=== PATIENT | male | born 1960 | race Caucasian/White ===

== ENCOUNTER 2025-06-05 08:02 | Outpatient (RCR) | payer MEDICAID, SELFPAY | END 2025-06-14 23:59 | disposition home or self-care (01) | LOC: SCTC 08:02 | PROVIDERS: PCP Physician Assistant; Referring Provider Physician Assistant; Visit Provider Nurse Practitioner Family | DX: D75.839 Thrombocytosis, unspecified (principal); D72.829 Elevated white blood cell count, unspecified; F31.9 Bipolar disorder, unspecified; F41.9 Anxiety disorder, unspecified; E11.621 Type 2 diabetes mellitus with foot ulcer; L97.529 Non-pressure chronic ulcer of other part of left foot with unspecified severity; Z79.4 Long term (current) use of insulin; Z79.84 Long term (current) use of oral hypoglycemic drugs; F17.210 Nicotine dependence, cigarettes, uncomplicated; Z71.51 Drug abuse counseling and surveillance of drug abuser; Z71.41 Alcohol abuse counseling and surveillance of alcoholic | CPT/HCPCS: 99213; G0463 ==

== ENCOUNTER 2025-07-09 20:16 | Inpatient (IN) | payer MEDICAID, SELFPAY ==
[2025-07-09 20:17] VITALS: BMI 29.0
[2025-07-09 20:44] VITALS: BP 143/80; PULSE 127; RESP 26; TEMP 39.7; O2SAT 82
--- NOTE | 2025-07-09 20:48 | EDNOTE_ITS ---
ED Skin Abcess FB-RME/HPI General Chief complaint: Skin/Abscess/Foreign Body Stated complaint: WOUND TO LEFT FOOT Time Seen by Provider: 07/09/25 21:04 Arrival date/time: 07/09/25 20:16 RME / HPI RME / HPI narrative: Dr. Carter?[facility] Main ED Evaluation: 64yo male with known IDDM, history of amputation of 2 digits of both feet, hospitalized in March for plantar ulcer, treated in [place] and had been on extended abx following hospitalization lasting up to 1 month on doxycycline and keflex now presenting with increasing redness, localized pain to the left foot upon dressing this morning. Reported fever and associated rigors. No vomiting or diarrhea. PMH DM, HTN, and depression. PSH noncontributory. Social history includes long-term smoker, no alcoholism or illicit drug abuse. Related Data Home Medications ?Medication ?Instructions ?Recorded ?Confirmed gabapentin 300 mg capsule 600 mg PO QAM ##0 12/18/12 0 11/28/22 (Neurontin) hydrochlorothiazide 25 mg tablet 25 mg PO QAM ##0 01/2511/28/22 levothyroxine 75 mcg tablet 75 mcg PO QDAY ##0 3 11/28/22 duloxetine 60 mg capsule,delayed 60 mg PO QAM #0 caps 01/31/14 11/28/22 release (Cymbalta) gemfibrozil 600 mg tablet (Lopid) 600 mg PO BID #0 tab s 01/31/14 11/28/22 cyclobenzaprine 10 mg tablet 10 mg PO HS #0 tabs 04/2911/28/22 glyburide 5 mg-metformin 500 mg 1 tab PO BID #0 tabs 0 04/29/16 11/28/22 tablet carvedilol 3.125 mg tablet (Coreg) 3.125 mg PO BID ##6 0 01/12/17 11/28/22 docusate sodium 50 mg capsule 50 mg PO QDAY ##30 01/1211/28/22 (Stool Softener) lamotrigine 100 mg tablet 100 mg PO QDAY ##30 01/12/17 11/28/22 (Lamictal) sitagliptin phosphate 100 mg 100 mg PO QDAY ##30 01/1211/28/22 tablet (Januvia) cilostazol 50 mg tablet 50 mg PO BID #0 tabs 7 11/28/22 insulin detemir U-100 100 unit/mL 30 unit subcut HS #0 vials 06/05/17 11/28/22 subcutaneous solution (Levemir U-100 Insulin) acetaminophen 300 mg-codeine 60 mg 1 tab PO PRN PRN Pa in 06/27/20 11/28/22 tablet amitriptyline 50 mg tablet 50 mg PO HS 06/27/20 diazepam 5 mg tablet 5 mg PO BID 06/27/20 3 duloxetine 30 mg capsule,delayed 30 mg PO HS 06/27/20 11/28/22 release gabapentin 300 mg capsule 300 mg PO HS 06/27/20 hydroxyzine HCl 25 mg tablet 25 mg PO PRN PRN Itching 06/27/20 11/28/22 omeprazole 20 mg tablet,delayed 20 mg PO QDAY 06/27/20 11/28/22 release Allergies Allergy/AdvReac Type Severity Reaction Status Date / Time No Known Allergies Allergy Verified 02/09/24 08:32 Review of Systems Review of Systems Systems Reviewed: All systems reviewed, normal except as documented Past Medical History Past Medical History NEUROLOGIC: Positive Neurological Disorders and Seizures CARDIAC: Positive Hypercholesterolemia and Hypertension; Negative Cardiac Disorders or Congestive Heart Failure RESPIRATORY: Negative Chronic Obstructive Pulmonary Disease (COPD) or Asthma GASTROINTESTINAL: Positive Gastrointestinal Disorders and Gastroesophageal Reflux Disease GENITOURINARY: Negative Renal Disease MUSCULOSKELETAL: Positive Degenerative Disk Disease ENT: Positive Cataracts ENDOCRINE: Positive Diabetes Mellitus Type 2, Hyperthyroidism and Hypothyroidism; Negative Diabetes Mellitus Type 1 HEMATOLOGIC: Negative Sickle Cell Disease PSYCHO/SOCIAL: Positive Bipolar Disorder, Behavior Problems and Post Traumatic Stress Disorder OTHER HISTORY: Positive Hospitalization and Falls; Negative Blood Transfusions, Blood Transfusion Reaction or Anesthesia Reactions Surgical History SURGICAL: Positive Angiogram and Tonsillectomy Social History SMOKING STATUS: Never smoker SUBSTANCE USE: marijuana ED Exam Narrative Physical exam: GENERAL APPEARANCE: alert and oriented x 4, febrile, tachycardic, tachypneic, in [id number] distress complaining of left foot pain VITALS: All vitals were reviewed and the pulse ox is 82% on room air, which is hypoxic according to my interpretation. HEENT: Normocephalic, atraumatic; pupils equal, round, reactive to light; EOMI; mucous membranes pink, moist; oropharynx clear NECK: Supple LUNGS: CTABL; no wheezes, no rales, no rhonchi HEART: Mildly tachycardic, regular rhythm; normal S1, S2; no murmurs ABDOMEN: non distended; normal BS; soft, no tenderness, no guarding, no rebound; no masses, no organomegaly, no hernia BACK: no CVA tenderness EXTREMITIES: diffuse erythema over the dorsum of the left foot with lymphangitis of the distal medial leg; linear plantar ulcer at the level of the 2nd and 3rd distal metatarsal heads with moderate tenderness and slight induration, but no obvious drainage; dorsalis pedis pulses are slightly diminished compared to the contralateral side NEUROLOGIC: awake; alert and oriented x4; cranial nerves II-XII grossly intact; no focal sensory or motor deficits PSYCHIATRIC: appropriate mood and affect SKIN: warm, dry Course Course Course Narrative: 2042: Sepsis alert initiated. Orders made at this time are congruent with ED Adult Sepsis Order List. Re-evaluation is to be completed. CXR is ordered for determining the etiology of fever. 2118: NS IVF started. 2326: Sepsis reassessment performed consisting of lab review, vitals, physical exam including auscultation of heart, lungs, and visual evaluation of capillary refills, mucosal membranes and extremities. Patient met SIRS criteria however lactic, WBC, and pro emelia are all above normal range. Reassessment complete, patient is septic. Quality Measures Current suspected stage: sepsis Possible source: pulmonary, skin/soft tissue and wound Blood cultures ordered: yes Antibiotic ordered: Yes Pertinent labs: 07/09/25 07/10/25 21:10 00:53 Lactic Acid 3.0 H mMol/L 1.2 mMol/L (0.4-2.0) (0.4-2.0) Procalcitonin 1.96 H ng/ml (0.0-0.49) sepsis Orders Category Date Time Status Admit to Inpatient Status Routine Admission 07/10/25 01:28 Active Patient Condition Routine Admission 07/10/25 01:28 Ordered Bedrest QS Care 07/10/25 01:46 Active Bedside Blood Glucose NOW Care 07/09/25 21:02 Active Bedside Blood Glucose Q6HR Care 07/10/25 01:36 Active Rail Bonder STAT Care 07/09/25 21:05 Active Continuous Pulse Oximetry STAT Care 07/09/25 21:05 Completed EKG (ED ONLY) *Do not use* NOW Care 07/09/25 21:05 Completed Hardwick [Urinary Catheter] QS Care 07/09/25 21:02 Active IV [Insert IV] STAT Care 07/09/25 21:02 Active In and Out Catheter X1PRN Care 07/09/25 21:05 Completed Insert IV NOW Care 07/09/25 21:05 Completed MRI Screening NOW Care 07/10/25 01:39 Active Miscellaneous Nursing Order NOW Care 07/10/25 01:36 Active Miscellaneous Nursing Order NOW Care 07/10/25 01:36 Active NPO STAT Care 07/09/25 21:05 Active Notify provider NEEDED Care 07/10/25 01:28 Active Strict Intake and Output Routine Care 07/09/25 21:05 Ordered Consult to General Surgery Stat Cons 07/10/25 01:43 Ordered Referral Wound Care Routine Cons 07/10/25 01:40 Active EKG (ED Only) Stat Exams 07/09/25 21:05 Draft MR foot LT wo con Stat Exams 07/10/25 Completed US arterial duplex LE LT Stat Exams 07/09/25 21:10 Completed US venous doppler LE LT Stat Exams 07/10/25 01:41 Completed US venous doppler UE LT Stat Exams 07/09/25 21:10 Completed XR chest 1V SEPSIS PROTOCOL Stat Exams 07/09/25 21:08 Completed XR foot comp LT min 3V Stat Exams 07/09/25 21:10 Completed Arterial Blood Gas Stat Lab 07/09/25 22:40 Completed B-Type Natriuretic Peptide Stat Lab 07/09/25 21:10 Completed Blood Culture (Lab) Stat Lab 07/09/25 21:15 Results C-Reactive Protein Routine Lab 07/10/25 08:06 Completed CBC AM DRAW Lab 07/10/25 08:06 Completed CBC AM DRAW Lab 07/11/25 05:00 Ordered CBC AM DRAW Lab 07/12/25 05:00 Ordered CBC Stat Lab 07/09/25 21:10 Completed Comprehensive Metabolic Panel AM DRAW Lab 07/10/25 08:06 Completed Comprehensive Metabolic Panel AM DRAW Lab 07/11/25 05:00 Ordered Comprehensive Metabolic Panel AM DRAW Lab 07/12/25 05:00 Ordered Comprehensive Metabolic Panel Stat Lab 07/09/25 21:10 Completed Hemoglobin A1C [Glycohemoglobin w (eAG)] AM DRAW Lab 07/10/25 08:06 Completed LDH (Lactate Dehydrogenase) Stat Lab 07/09/25 21:10 Completed Lactate (Lactic Acid) Stat Lab 07/09/25 21:10 Completed Lactic Acid, 3 HR Stat Lab 07/10/25 00:53 Completed Lipase Stat Lab 07/09/25 21:10 Completed Magnesium AM DRAW Lab 07/10/25 08:06 Completed Magnesium AM DRAW Lab 07/11/25 05:00 Ordered Magnesium AM DRAW Lab 07/12/25 05:00 Ordered Magnesium Stat Lab 07/09/25 21:10 Completed Partial Thromboplastin Time Stat Lab 07/09/25 21:10 Completed Phosphorous AM DRAW Lab 07/11/25 05:00 Ordered Phosphorous AM DRAW Lab 07/12/25 05:00 Ordered Phosphorous AM DRAW Lab 07/13/25 05:00 Ordered Phosphorous Stat Lab 07/09/25 21:10 Completed Procalcitonin Stat Lab 07/09/25 21:10 Completed Prothrombin Time with INR Stat Lab 07/09/25 21:10 Completed Sed Rate (ESR) Routine Lab 07/10/25 08:06 Completed Troponin I Stat Lab 07/09/25 21:10 Completed Urinalysis, C/S if Indicated Stat Lab 07/09/25 21:10 Completed Urinalysis, C/S if Indicated Stat Lab 07/09/25 22:33 Ordered Acetaminophen Supp [Tylenol Supp] Med 07/09/25 21:05 Active 975 mg MO Q8HR PRN Acetaminophen Tab [Tylenol Tab] Med 07/10/25 01:31 Active 650 mg PO Q6H PRN Dextrose 50% Syr [D50w Syringe Abboject] Med 07/10/25 01:36 Active 25 ml IV Q15MIN PRN Dextrose 50% Syr [D50w Syringe Abboject] Med 07/10/25 01:36 Active 50 ml IV Q15MIN PRN Glucagon Inj Med 07/10/25 01:36 Active 1 mg IM Q15MIN PRN Heparin Inj Med 07/10/25 09:00 Active 5,000 unit SC Q12HR INSULIN LISPRO (AdmeLOG) [HumaLOG] Med 07/10/25 01:45 Active See Protocol SC Q6HR Morphine Inj Med 07/09/25 21:21 Discontinued 4 mg IVP X1 ONE Ondansetron Inj [Zofran Inj] Med 07/09/25 21:21 Discontinued 4 mg IVP X1 ONE Pantoprazole Inj [Protonix Inj] Med 07/10/25 09:00 Active 40 mg IVP QDAY Piper/Tazo 3.375 gm Premix [Zosyn] Med 07/09/25 21:05 Discontinued 3.375 gm in 50 ml IV X1 Piper/Tazo Inj [Zosyn Inj] 4.5 gm Med 07/10/25 06:00 Discontinued Sodium Chloride 0.9% (Pop) [NS 0.9% mini bag] 100 ml IV X1 Sodium Chloride 0.9% 1000 ml [Ns] 1,000 ml Med 07/10/25 01:45 Discontinued IV 75 mls/hr Sodium Chloride 0.9% 1000 ml [Ns] 1,983 ml Med 07/09/25 21:05 Discontinued IV 1,983 mls/hr Sodium Chloride 0.9% 500 ml [Ns] 500 ml Med 07/10/25 01:02 Discontinued IV 999 mls/hr Code Status Routine Oth 07/10/25 01:28 Ordered Oxygen Delivery NOW RT 07/09/25 21:05 Active Vital Signs Vital signs: Vital Signs Temperature 103.5 F H 07/09/25 20:44 Pulse Rate 127 H 07/09/25 20:44 Respiratory Rate 26 H 07/09/25 20:44 Blood Pressure 143/80 H 07/09/25 20:44 Pulse Oximetry (%) 82 L 07/09/25 20:44 Oxygen Delivery Method Room Air 07/09/25 20:44 Skin / Abscess / Foreign Body MDM Narrative MDM Narrative:: Scribe Attestation: 07/09/25 Elva Bhatia am scribing for and in the presence of Dr. Carter. 64yo male with known IDDM, history of amputation of 2 digits of both feet, hospitalized in March for plantar ulcer, treated in [place] and had been on extended abx following hospitalization lasting up to 1 month on doxycycline and keflex now presenting with increasing redness, localized pain to the left foot upon dressing this morning. Reported fever and associated rigors. Please see PE findings. Lab markers demonstrate elevated WBC count 14.1, mild anemia with Hgb 13, evidence of thrombocytosis that is likely acute phase reactive. Chemistries demonstrate acute renal insufficiency with Creatinine 1.8 and eGFR 42. Glucose 256 without ketosis. Mg 1.2 and Procalcitonin 1.96. Right foot x-ray suggests osteomyelitis at the 3rd distal metatarsal head. CXR demonstrates bilateral pneumonia. Patient enrolled in sepsis protocol and after cultures were obtained, antibiotics were administered. Patient's hypoxia corrected with 6L via face mask and overtime patient's sensorium improved. Hospitalist consulted and will admit the patient. Dx: acute sepsis, bilateral pnaumonia, osteomyelitis, acute renal insufficiency Patient data External records reviewed:: [facility] previous records (Per chart review, patient was seen here on 02/09/24 for hematoma of the right lower leg.) Clinical information provided by:: patient Social determinants that could affect healthcare access:: none Patient has the following chronic illnesses:: DM, HTN, HLD, seizures How is presenting disease/condition affected by chronic disease/condition?: exacerbated by Evaluation data The following diagnostics were reviewed and interpreted by me:: lab results, radiology exam(s) and EKG tracing(s) Lab and/or radiology exams considered but not ordered:: none Interpretation Summary: EKG done at 2227, sinus tachycardia, rate of 106, no acute pathological ST segment changes, no ectopy, RBBB, left axis deviation, according to my interpretation. ------ [facility] Report Signed Patient: PROMISE MIKE. Record#: [id number] Birthdate: 1960 Age/Sex: 64 / M Location: [facility] Attending Dr: Ordering Physician: Hardy Desai DO Date of Service: 07/09/25 Procedure(s): XR chest 1V SEPSIS PROTOCOL Accession Number(s): [id number] cc: Hardy Desai DO; Tank Kenyon MD; NO PRIMARY/FAMILY,PHYSICIAN~ Examination: AP chest single view TECHNIQUE: AP portable semiupright chest single view Date and time: July 09, 2025, 9:42 PM INDICATIONS: Sepsis protocol. FINDINGS: Significant diffuse bilateral pneumonia. Normal heart size. Moderate osteopenia. IMPRESSION:: Significant diffuse bilateral pneumonia Dictated By: Tank Kenyon MD Signed By: <Electronically signed by Tank Kenyon MD in OV> 07/09/252199 [facility] Report Signed Patient: PROMISE MIKE [facility]. Record#: [id number] Birthdate: 1960 Age/Sex: 64 / M Location: [facility] Attending Dr: Ordering Physician: Hardy Desai DO Date of Service: 07/09/25 Procedure(s): US arterial duplex LE LT Accession Number(s): [id number] cc: Hardy Desai DO; Tank Kenyon MD; NO PRIMARY/FAMILY,PHYSICIAN~ Examination: Arterial duplex lower extremity unilateral left Date and time of exam: July 09, 2025, 2124 hours INDICATIONS: Nonhealing left foot wound beginning several months ago Findings: Duplex sonographic imaging of the lower extremity arteries using B-mode/Galvin scale imaging and Doppler spectral analysis and color flow. Left common femoral artery demonstrates monophasic flow. Left superficial femoral artery demonstrates monophasic flow. Left popliteal artery demonstrates mild flow. Left posterior tibial artery demonstrated monophasic flow. Impression: Severe peripheral obstructive arterial disease left lower extremity Dictated By: Tank Kenyon MD Signed By: <Electronically signed by Tank Kenyon MD in OV> 07/09/252308 [facility] Report Signed Patient: PROMISE MIKE [facility]. Record#: [id number] Birthdate: 1960 Age/Sex: 64 / M Location: [facility] Attending Dr: Ordering Physician: Hardy Desai DO Date of Service: 07/09/25 Procedure(s): XR foot comp LT min 3V Accession Number(s): [id number] cc: Hardy Desai DO; Tank Kenyon MD; NO PRIMARY/FAMILY,PHYSICIAN~ Examination: Foot, left, 3 views Technique: AP, oblique, lateral views foot, 3 views Date and time of exam: July 09, 2025, 2136 hours INDICATIONS: Nonhealing wound left foot noticed beginning 3 days ago. FINDINGS: Cortical bone erosions in the amputated and third metatarsal No fracture No foreign body IMPRESSION: Osteomyelitis distal third metatarsal, consider MRI foot without contrast follow-up Dictated By: Tank Kenyon MD Signed By: <Electronically signed by Tank Kenyon MD in OV> 07/09/25 6043 [facility] Report Signed Patient: PROMISE MIKE. Record#: [id number] Birthdate: 1960 Age/Sex: 64 / M Location: [facility] Attending Dr: Ordering Physician: Hardy Desai DO Date of Service: 07/09/25 Procedure(s): US venous doppler UE LT Accession Number(s): [id number] cc: Hardy Desai DO; Tank Kenyon MD; NO PRIMARY/FAMILY,PHYSICIAN~ Examination: Duplex scan of the upper extremity, unilateral left Date and time of exam: July 09, 20251939 7:00 PM INDICATIONS: Left arm swelling and pain months Technique: Duplex scan of the extremity veins using B-mode/grayscale imaging and Doppler spectral analysis and color flow Attention is directed to internal echogenicity, compression and augmentation involving these veins, color flow assessment, spectral analysis Findings: Major deep venous structures in the extremity demonstrate normal course and caliber. There is no evidence of deep vein thrombosis. Normal color flow and spectral analysis Impression: Negative for DVT.. Dictated By: Tank Kenyon MD Signed By: <Electronically signed by Tank Kenyon MD in OV> 07/09/25 9869 Medications / Prescriptions Medications or Prescriptions considered but not ordered:: none Medication administrations:: Medication Administration History Acetaminophen (Acetaminophen Supp 650 Mg Supp) 975 mg MO Q8HR PRN; Protocol PRN Reason: Fever > 100.4 Stop: 08/08/25 21:04 Last Admin: 07/09/25 21:27 Dose: 975 mg Documented By: ASHISH Acetaminophen (Acetaminophen 325 Mg Tablet) 650 mg PO Q6H PRN; Protocol PRN Reason: Fever >100.4 or pain 1-3 Stop: 08/09/25 01:30 Amitriptyline HCl (Amitriptyline Hcl 25 Mg Tablet) 50 mg PO HS RAFAEL Stop: 08/09/25 20:59 Dextrose (Dextrose 50%-Water Inj 50 Ml Syringe) 25 ml IV Q15MIN PRN PRN Reason: BG 50-70 responsive npo pt Stop: 08/09/25 01:35 Dextrose (Dextrose 50%-Water Inj 50 Ml Syringe) 50 ml IV Q15MIN PRN PRN Reason: BG <50 OR BG <70 & pt unresponsive Stop: 08/09/25 01:35 Diazepam (Diazepam 5 Mg Tablet) 5 mg PO BID RAFAEL Stop: 07/15/25 13:29 Last Admin: 07/10/25 14:05 Dose: 5 mg Documented By: PARTH Duloxetine HCl (Duloxetine Hcl 30 Mg Capsule) 90 mg PO HS [facility] Stop: 08/09/25 20:59 Gabapentin (Gabapentin 300 Mg Capsule) 300 mg PO BID RAFAEL Stop: 08/09/25 20:59 Glucagon (Glucagon Inj 1 Mg Vial) 1 mg IM Q15MIN PRN PRN Reason: BG <70, and no IV access Heparin Sodium (Porcine) (Heparin Sod Inj 5000 Unit/Ml Vial) 5,000 unit SC Q12HR [facility] Stop: 07/24/25 08:59 Last Admin: 07/10/25 09:14 Dose: 5,000 unit Documented By: PARTH Co-signed By: XIONIgor Piperacillin Sod/Tazobactam (Sod 4.5 gm/ Sodium Chloride) 100 mls @ 25 mls/hr IV Q8HR [facility]; Protocol Stop: 07/17/25 13:59 Last Admin: 07/10/25 14:07 Dose: 25 mls/hr Documented By: PARTH Vancomycin HCl (Vancomycin/Water 1250 Mg Ivpb) 250 mls @ 120 mls/hr IV QDAY@1000 [facility] Stop: 07/17/25 09:59 Last Admin: 07/10/25 09:07 Dose: 120 mls/hr Documented By: PARTH Insulin Degludec (Insulin Degludec 5 Unit/0.05 Ml (Per 5 Units)) 15 unit SC [facility] Stop: 08/09/25 20:59 Insulin Human Lispro (Insulin Lispro (Admelog) 1 Unit/0.01 Ml Unit) 0 unit SC Q6HR [facility]; Protocol Stop: 08/09/25 01:44 Last Admin: 07/10/25 18:00 Dose: Not Given Documented By: PARTH Non-Admin Reason: Contraindicated Admin: 07/10/25 12:25 Dose: 4 unit Documented By: PARTH Co-signed By: CARMINE Admin: 07/10/25 05:54 Dose: 3 unit Documented By: RAVINDER Co-signed By: GEM Admin: 07/10/25 02:34 Dose: Not Given Documented By: CCT Non-Admin Reason: Patient Refused Lamotrigine (Lamotrigine 100 Mg Tablet) 100 mg PO QDAY [facility] Stop: 08/09/25 10:59 Last Admin: 07/10/25 14:19 Dose: 100 mg Documented By: PARTH Midazolam HCl (Midazolam Inj 1 Mg/Ml Vial 2 Ml) 2 mg IVP X1 PRN PRN Reason: Severe Agitation Pantoprazole Sodium (Pantoprazole Inj 40 Mg Vial) 40 mg IVP QDAY [facility] Stop: 08/09/25 08:59 Last Admin: 07/10/25 09:13 Dose: 40 mg Documented By: PARTH Pharmacy Consult (Vancomycin Pharmacy To Dose 1 Each Each) 1 each IV QDAY PRN PRN Reason: CONSULT Stop: 08/09/25 08:59 Discontinued Medications Haloperidol Lactate (Haloperidol Lact Inj 5 Mg/Ml Vial) 2.5 mg IV X1 ONE Stop: 07/10/25 15:12 Last Admin: 07/10/25 15:15 Dose: 2.5 mg Documented By: Comments: [employer] Haloperidol Lactate (Haloperidol Lact Inj 5 Mg/Ml Vial) 2.5 mg IV X1 ONE Stop: 07/10/25 15:28 Last Admin: 07/10/25 15:40 Dose: 2.5 mg Documented By: PARTH Sodium Chloride (Ns) 1,983 mls @ 1,983 mls/hr 30 ml/kg infuse over 60 min (1983 ml) IV .Q1H ONE Stop: 07/09/25 22:04 Last Infusion: 07/09/25 22:57 Dose: Infused Documented By: Admin: 07/09/25 21:19 Dose: 1,983 mls/hr Documented By: ASHISH Piperacillin/Tazobactam/Dextrose (Zosyn) 3.375 gm in 50 mls @ 100 mls/hr IV X1 ONE Stop: 07/09/25 21:34 Last Infusion: 07/09/25 22:05 Dose: Infused Documented By: Admin: 07/09/25 21:20 Dose: 100 mls/hr Documented By: CB Sodium Chloride (Ns) 500 mls @ 999 mls/hr IV .Q31M ONE Stop: 07/10/25 01:32 Last Infusion: 07/10/25 01:50 Dose: Infused Documented By: Admin: 07/10/25 01:15 Dose: 999 mls/hr Documented By: CCT Sodium Chloride (Ns) 1,000 mls @ 75 mls/hr IV .[id number] RAFAEL Stop: 08/09/25 01:44 Last Admin: 07/10/25 02:36 Dose: 75 mls/hr Documented By: CCT Piperacillin Sod/Tazobactam (Sod 4.5 gm/ Sodium Chloride) 100 mls @ 200 mls/hr IV X1 ONE Stop: 07/10/25 06:29 Last Infusion: 07/10/25 06:30 Dose: Infused Documented By: Admin: 07/10/25 05:56 Dose: 200 mls/hr Documented By: MLKaiden Magnesium Sulfate (Magnesium Sulfate Ivpb) 4 gm in 50 mls @ 12.5 mls/hr IV X1 ONE Stop: 07/10/25 08:33 Last Admin: 07/10/25 05:55 Dose: 12.5 mls/hr Documented By: MLKaiden Midazolam HCl (Midazolam Inj 1 Mg/Ml Vial 2 Ml) 2 mg IVP X1 ONE Stop: 07/10/25 15:10 Last Admin: 07/10/25 15:11 Dose: 2 mg Documented By: MR Midazolam HCl (Midazolam Inj 1 Mg/Ml Vial 2 Ml) Confirm Administered Dose 2 mg .ROUTE .STK-MED ONE Stop: 07/10/25 15:08 Last Admin: 07/10/25 15:16 Dose: Not Given Documented By: MR Non-Admin Reason: STK MED Morphine Sulfate (Morphine Sulf Inj 10 Mg/Ml Vial) 4 mg IVP X1 ONE Stop: 07/09/25 21:22 Last Admin: 07/09/25 21:27 Dose: 4 mg Documented By: ASHISH Non-Formulary Medication (Non-Formulary *See Comments* 1 Ea Ea) 10 ea IV X1 ONE Stop: 07/10/25 16:03 Last Admin: 07/10/25 16:28 Dose: Not Given Documented By: VL Non-Admin Reason: Discontinued Ondansetron HCl (Ondansetron Inj 2 Mg/Ml Inj 2 Ml) 4 mg IVP X1 ONE; Protocol Stop: 07/09/25 21:22 Last Admin: 07/09/25 21:27 Dose: 4 mg Documented By: CB Potassium Chloride (Potassium Chloride 20 Meq Tabcr) 40 meq PO X1 ONE Stop: 07/10/25 11:01 Last Admin: 07/10/25 12:22 Dose: 40 meq Documented By: VL Ziprasidone (Ziprasidone Inj 20 Mg/Ml Vial (Non-Formulary)) 10 mg IM X1 ONE; Protocol Stop: 07/10/25 16:16 Last Admin: 07/10/25 16:26 Dose: 10 mg Documented By: VL see above Consultations Consultation(s) initiated? (list below): Yes Consultation #1 (Physician, Specialty, Details): Discussed case with Dr. Chen, the resident physician, attending Dr. Godfrey from Hospitalist service regarding admission. Discussed patients ED course, exam findings, labs, and radiology results. The Hospitalist agrees to accept the patient for admission. Time: 00:51 Diagnosis Skin/Abscess Differential Diagnosis: other (sepsis, cellulitis, DVT, worsening PVD, osteomyelitis, pneumonia, UTI) Most likely diagnosis given after review of the tests above:: see clinical impression below Admission Indicated Admission indicated?: indicated Admission Request Was there a request for admission?: Yes Admission Attestation Admission request attestation: Discussed case with [] from Hospitalist service regarding admission. Discussed patients ED course, exam findings, labs, and radiology results. The Hospitalist [agrees,declines] to accept the patient for admission. Disposition Plan Disposition Plan: Admit Critical Care Time Critical Care Time Critical Care Time: Yes Total Critical Care Time (min.): 45 Attestation: The high probability of sudden, clinically significant deterioration in the patient?s condition required the highest level of my preparedness to intervene urgently. The services I provided to this patient were to treat and/or prevent clinically significant deterioration. Services included the following: chart data review, reviewing nursing notes and/or old charts, documentation time, knowledge management consultant collaboration regarding findings and treatment options, medication orders and management, direct patient care, vital sign assessments and ordering, interpreting and reviewing diagnostic studies and lab tests. Aggregate critical care time includes only time during which I was engaged in work directly related to the patient?s care, as described above, whether at bedside or elsewhere in the Emergency Department. It did not include time spent performing other reported procedures or the services of residents, students, nurses or physician assistants. Discharge Plan Plan Patient Disposition: Admit Acute Care w/in Hospital Problem List Clinical Impression: Acute sepsis, Bilateral pneumonia, Osteomyelitis, Acute renal insufficiency
--- NOTE | 2025-07-09 21:05 | EKG_ITS ---
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
[2025-07-09 21:07] VITALS: BP 136/72; PULSE 124; RESP 31; O2SAT 95
--- NOTE | 2025-07-09 21:08 | XR_ITS ---
Examination: AP chest single view TECHNIQUE: AP portable semiupright chest single view Date and time: July 09, 2025, 9:42 PM INDICATIONS: Sepsis protocol. FINDINGS: Significant diffuse bilateral pneumonia. Normal heart size. Moderate osteopenia. IMPRESSION:: Significant diffuse bilateral pneumonia
--- NOTE | 2025-07-09 21:10 | XR_ITS ---
Examination: Duplex scan of the upper extremity, unilateral left Date and time of exam: July 09, 20251939 7:00 PM INDICATIONS: Left arm swelling and pain months Technique: Duplex scan of the extremity veins using B-mode/grayscale imaging and Doppler spectral analysis and color flow Attention is directed to internal echogenicity, compression and augmentation involving these veins, color flow assessment, spectral analysis Findings: Major deep venous structures in the extremity demonstrate normal course and caliber. There is no evidence of deep vein thrombosis. Normal color flow and spectral analysis Impression: Negative for DVT..
--- NOTE | 2025-07-09 21:10 | XR_ITS ---
Examination: Arterial duplex lower extremity unilateral left Date and time of exam: July 09, 2025, 2124 hours INDICATIONS: Nonhealing left foot wound beginning several months ago Findings: Duplex sonographic imaging of the lower extremity arteries using B-mode/Galvin scale imaging and Doppler spectral analysis and color flow. Left common femoral artery demonstrates monophasic flow. Left superficial femoral artery demonstrates monophasic flow. Left popliteal artery demonstrates mild flow. Left posterior tibial artery demonstrated monophasic flow. Impression: Severe peripheral obstructive arterial disease left lower extremity
--- NOTE | 2025-07-09 21:10 | XR_ITS ---
Examination: Foot, left, 3 views Technique: AP, oblique, lateral views foot, 3 views Date and time of exam: July 09, 2025, 2135 hours INDICATIONS: Nonhealing wound left foot noticed beginning 3 days ago. FINDINGS: Cortical bone erosions in the amputated and third metatarsal No fracture No foreign body IMPRESSION: Osteomyelitis distal third metatarsal, consider MRI foot without contrast follow-up
[2025-07-09] MEDS: SODIUM CHLORIDE 0.9% 1000 ML 1,983 ML 1983 ML IV (21:19)
[2025-07-09] MEDS: PIPER/TAZO 3.375 GM PREMIX 3.375 GM/50 ML BAG IV (21:20)
[2025-07-09 21:27] VITALS: TEMP 39.7
[2025-07-09 21:27] LABS: Collection Type, Urine Clean Catch; Lactate (Lactic Acid) 3.0 mMol/L (0.4-2.0); Squamous Epithelial Cell,Urine 0 /hpf (0-5)
[2025-07-09] MEDS: ONDANSETRON INJ 2 MG/ML INJ 2 ML 4 MG IVP (21:27)
[2025-07-09] MEDS: ACETAMINOPHEN SUPP 650 MG SUPP 975 MG PR (21:27)
[2025-07-09] MEDS: MORPHINE SULF INJ 10 MG/ML VIAL 4 MG IVP (21:27)
[2025-07-09 21:28] LABS: Basophils # (Auto) 0.0 Thou/mm3 (0.0-0.2); Basophils % (Auto) 0 % (0-2.5); Eosinophils # (Auto) 0.0 Thou/mm3 (0.0-0.5); Eosinophils % (Auto) 0 % (0-10); Hematocrit 39.2 % (41.0-53.0); Hemoglobin 13.0 g/dL (13.5-16.0); Immature Granulocytes Auto 0.05 Thou/mm3 (0.00-0.00); Lymphocytes # (Auto) 1.4 Thou/mm3 (1.0-4.8); Lymphocytes % (Auto) 10 % (10-50); Mean Corpuscular HGB Conc 33.2 g/dl (31.0-37.0); Mean Corpuscular Hemoglobin 28.0 pg (25.0-35.0); Mean Corpuscular Volume 84 fL (80-100); Monocytes # (Auto) 0.5 Thou/mm3 (0.0-0.8); Monocytes % (Auto) 3 % (0-12); Neutrophils # (Auto) 12.2 Thou/mm3 (1.8-7.7); Neutrophils % (Auto) 86 % (37-80); Nucleated Red Blood Cell # 0.02 Thou/mm3 (0.00-0.00); Nucleated Red Blood Cell % 0 /100 WBC (0); Platelet Count 541 Thou/mm3 (140-440); RDW Standard Deviation 46.5 fL (35.1-43.9); Red Blood Count 4.65 Miln/mm3 (4.50-5.90); White Blood Count 14.1 Thou/mm3 (3.8-10.6)
[2025-07-09 21:30] LABS: Bilirubin,Urine Negative (Negative); Blood,Urine Negative (Negative); Clarity,Urine Clear (Clear/Hazy); Color,Urine Yellow (Lt Yel-Yel); Culture Indicated,Urine Not Indicated; Glucose, Urine 4+ (Negative); Hyaline Casts,Urine < 1 /hpf (0-1); Ketones,Urine Negative (Negative); Leukocyte Esterase,Urine Negative (Negative); Nitrite,Urine Negative (Negative); PH,Urine 6.0 (5.0-7.0); Protein,Urine 2+ (Neg - Trace); RBC,Urine 2 /hpf (0-3); Specific Gravity,Urine 1.022 (1.001-1.035); Urobilinogen,Urine Negative mg/dL (0.0-1.0); WBC,Urine 1 /hpf (0-5)
[2025-07-09 21:46] VITALS: PULSE 115
[2025-07-09 21:48] LABS: B-Type Natriuretic Peptide 94 pg/mL (0-100)
[2025-07-09 21:57] LABS: Alanine Aminotransferase 13 U/L (10-49); Albumin, Serum 4.6 gm/dL (3.4-4.8); Albumin/Globulin Ratio 1.5 (1.2-2.2); Alkaline Phosphatase 83 U/L (46-116); Anion Gap 15 (7-16); Aspartate Amino Transferase 23 U/L (0-34); BUN/Creatinine Ratio 18 Ratio (12-20); Bilirubin,Total 0.4 mg/dL (0.3-1.2); Blood Urea Nitrogen 33 mg/dL (9-23); Calcium 9.8 mg/dL (8.3-10.6); Calcium (Corrected) 9.8 mg/dL (8.5-10.1); Carbon Dioxide 24.5 mMol/L (20.0-31.0); Chloride 94 mMol/L (98-107); Creatinine (Component) 1.8 mg/dL (0.6-1.3); Estimated Creatinine Clearance 42.9 mL/min (>60); Globulin 3.1 gm/dL (2.3-3.5); Glucose 256 mg/dL (74-106); LDH (Lactate Dehydrogenase) 290 U/L (120-246); Lipase 36 U/L (12-53); Magnesium 1.2 mg/dL (1.6-2.6); Osmolality,Calculated 282 (275-295); Phosphorous 4.0 mg/dL (2.4-5.1); Potassium 3.6 mMol/L (3.4-5.1); Procalcitonin 1.96 ng/ml (0.0-0.49); Sodium 133 mMol/L (136-145); Total Protein 7.7 gm/dL (5.7-8.2); Troponin I < 0.020 ng/mL (0.0-0.045); eGFR 42 See Note
[2025-07-09 22:01] LABS: INR 1.2 (0.9-1.3); Partial Thromboplastin Time 26.8 Seconds (22.0-36.0); Prothrombin Time 12.6 Seconds (9.0-12.2)
[2025-07-09 22:52] LABS: Base Excess -1 (-3-3); HCO3 25 mEq/L (20-26); O2 Saturation 96 % (91-98); PCO2 46 mmHg (32.0-48.0); PO2 82 mmHg (83-108); pH, Arterial 7.35 (7.35-7.45)
[2025-07-09 22:53] LABS: Allen Test Performed/OK; Inspired O2, VO2 Liters 10 L/min; Puncture Site Right Radial
[2025-07-09 22:56] VITALS: TEMP 38.4
[2025-07-09 22:58] VITALS: BP 116/56; PULSE 105; RESP 27; TEMP 38.4; O2SAT 95
[2025-07-10] VITALS (11 sets, daily range): BP systolic 101–134; BP diastolic 62–75; PULSE 70–105; RESP 20–30; TEMP 36.2–38.4; O2SAT 92–95; BMI 31.0
--- NOTE | 2025-07-10 | XR_ITS ---
Examination: MRI left foot, without contrast Date and time of exam: July 10, 2025, 0929 hours INDICATIONS: History amputation 2 digits of the foot, history plantar ulcer, patient on extended antibiotic therapy for nonhealing wounds redness in the left foot Technique: Multiple axial sagittal and coronal images of the left foot have been obtained with the Siemens high-resolution 1.5 Cindi MRI scanner. Images obtained include T2-weighted fat-suppressed sagittal sections, TR 3500, TE 46, T2 weighted coronal fat suppressed images, TR 3050, TE 84, T2-weighted transverse fat suppressed images, TR 3260, TE 63, proton density transverse images, TR 4720 TE 46, and T1 weighted coronal images, TR 560, TE 13. Findings: Amputations distal third metatarsal, proximal phalanx fourth digit Soft tissue infection about the distal third metatarsal with cortical bone destruction involving the distal aspect of the third metatarsal No soft tissue abscess Remaining metatarsals intact and Mild plantar fasciitis Flexor tendons intact IMPRESSION: Soft tissue infection surrounding the distal third metatarsal Osteomyelitis distal third metatarsal
[2025-07-10 00:25] LABS: Reflex Lactate? Y
[2025-07-10 01:01] LABS: Lactic Acid, 3 HR 1.2 mMol/L (0.4-2.0)
--- NOTE | 2025-07-10 01:11 | ESHP_ITS ---
<Statement entered by Nadir Godfrey MD - 07/10/25 08:49> I have discussed and was present for the essential components of the history, physical examination, diagnosis, and treatment plan with the resident. I agree with the patient's care as documented by the resident and amended herein by me. Nadir Godfrey MD FACP. 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 Patient reports that his normally assists with wound care for a plantar ulcer. He noticed increased redness and pain 2 days ago, with some streaking up the leg. Denies foul odor or drainage. He endorsed fever and chills/rigors earlier today. Denies abdominal pain, nausea, vomiting, or diarrhea. Reports mild scratchy throat but minimal cough, no productive sputum, and no recent sick contacts. Reports some chronic shortness of breath but no acute chest pain, palpitations, or syncope. In the ED, he was febrile to 103.5?F, tachycardic to 127, tachypneic, and hypoxic to 82% on RA (improved with O2). Sepsis alert initiated; patient received ~2.4L IV NS (30cc/kg bolus), IV piperacillin-tazobactam, morphine, and Zofran. CXR showed diffuse bilateral pneumonia. Foot x-ray revealed osteomyelitis of the distal third metatarsal at the plantar ulcer site. Duplex scan showed severe peripheral arterial disease of LLE. MRI foot is pending. Blood cultures sent. Patient?s mental status improved after fluids and oxygen. During interview he was somewhat tangential but oriented ?4. ROS (limited by patient tangentiality) * General: +fever, +rigors, no night sweats, no weight loss. * Cardiac: No chest pain, +tachycardia in ED. * Respiratory: Mild scratchy throat, occasional cough, denies sputum, admits chronic mild SOB. * GI: Denies N/V/D, no abdominal pain. * : Denies dysuria, frequency, hematuria. * MSK/Skin: L foot pain, erythema, ulcer, streaking up leg. * Neuro: No acute weakness, speech intact. Hx seizures. * Psych: Mood tangential, but appropriate affect. PMH * DM2 (IDDM) * Peripheral arterial disease with prior toe amputations * Splenectomy (2022, for splenic infarct & thrombus) * Hypertension, hyperlipidemia * Hypothyroidism (on levothyroxine) * Psychiatric: Bipolar disorder, MDD, PTSD, explosive anger disorder * Seizure disorder * GERD * Cataracts * DDD PSH * Splenectomy 2022 * Toe amputations (bilateral) * Tonsillectomy * Angiogram Medications (per patient, pending full med rec) * Insulin (states 40 units daily, type unclear) * Aspirin * Unclear if still on Eliquis (was prescribed after splenectomy in 2022; patient says he?s taking his ?blood thinner? but unsure of the name) * Levothyroxine * Antihypertensives (unsure which) * Gabapentin, Cymbalta (per prior note) * Others pending reconciliation Allergies * NKDA reported Family History * Non-contributory per patient Social History * Lives with , who assists with wound care * Former cigarette smoker (now vaping, reduced use) * Marijuana use occasionally * Denies alcohol or illicit drug use * Disabled, not working Exam Vital Signs Temp Pulse Resp BP Pulse Ox O2 Del Method O2 Flow Rate 101.1 F H 105 H 27 H 116/56 L 95 Oxy Mask 10 07/09/25 22:58 07/09/25 22:58 07/09/25 22:58 07/09/25 22:58 07/09/25 22:58 07/09/25 22:58 07/09/25 22:58 Narrative Exam General: Ill-appearing, in mild-moderate distress from foot pain. Tangential but oriented ?4. HEENT: Normocephalic, atraumatic, PERRL, MMM, oropharynx clear. Neck: Supple, no JVD. Cardiac: Tachycardic, regular, no murmurs. Respiratory: Mild tachypnea, bibasilar crackles, no wheezes/rhonchi. Abdomen: Soft, non-tender, no rebound/guarding, +BS. Extremities: L foot: diffuse erythema dorsum with lymphangitic streaking up medial leg; plantar ulcer at 2nd?3rd distal metatarsal head, tender, indurated, serosanguineous drainage; DP pulse was not appreciated Neuro: Awake, alert, CN II?XII intact, motor/sensory grossly intact. Psych: Tangential speech, appropriate affect. Skin: Warm, dry, erythematous changes over L foot. Results: Labs 07/09/25 21:10 07/09/25 21:10 Labs: Short CBC 07/09/25 Range/Units 21:10 WBC 14.1 H (3.8-10.6) Thou/mm3 Hgb 13.0 L (13.5-16.0) g/dL Hct 39.2 L (41.0-53.0) % Plt Count 541 H (140-440) Thou/mm3 BMP 07/09/25 21:10 Sodium 133 L Potassium 3.6 Chloride 94 L Carbon Dioxide 24.5 BUN 33 H Creatinine 1.8 H Glucose 256 H Calcium 9.8 Cardiac Enzymes 07/09/25 Range/Units 21:10 Troponin I < 0.020 (0.0-0.045) ng/mL Liver Function 07/09/25 Range/Units 21:10 Total Bilirubin 0.4 (0.3-1.2) mg/dL AST 23 (0-34) U/L ALT 13 (10-49) U/L Alkaline Phosphatase 83 (46-116) U/L Albumin 4.6 (3.4-4.8) gm/dL Urine 07/09/25 Range/Units 21:10 Urine Color Yellow (Lt Yel-Yel) Urine Clarity Clear (Clear/Hazy) Urine pH 6.0 (5.0-7.0) Ur Specific [address] 1.022 (1.001-1.035) Urine Protein 2+ A (Neg - Trace) Urine Glucose (UA) 4+ A (Negative) ABG Interpretation ABG results: 07/09/25 22:40 ABG pH 7.35 ABG pCO2 46 ABG pO2 82 L ABG HCO3 25 ABG O2 Saturation 96 ABG Base Excess -1 Quality Measures Quality Measures sepsis Current suspected stage: sepsis Possible source: pulmonary, skin/soft tissue and wound Blood cultures ordered: yes Antibiotic ordered: Yes Medications Home Medications and Allergies Home Medications ?Medication ?Instructions ?Recorded ?Confirmed ?Type gabapentin 300 mg capsule 600 mg PO [facility] ##0 12/18/12 0 11/28/22 History (Neurontin) hydrochlorothiazide 25 mg tablet 25 mg PO QAM ##0 0201/2511/28/22 History levothyroxine 75 mcg tablet 75 mcg PO QDAY ##0 3 11/28/22 History duloxetine 60 mg capsule,delayed 60 mg PO QAM #0 caps 01/31/14 11/28/22 History release (Cymbalta) gemfibrozil 600 mg tablet (Lopid) 600 mg PO BID #0 tab s 01/31/14 11/28/22 History cyclobenzaprine 10 mg tablet 10 mg PO HS #0 tabs 04/2911/28/22 History glyburide 5 mg-metformin 500 mg 1 tab PO BID #0 tabs 0 04/29/16 11/28/22 History tablet carvedilol 3.125 mg tablet (Coreg) 3.125 mg PO BID ##6 0 01/12/17 11/28/22 History docusate sodium 50 mg capsule 50 mg PO QDAY ##30 01/1211/28/22 History (Stool Softener) lamotrigine 100 mg tablet 100 mg PO QDAY ##30 01/12/17 11/28/22 History (Lamictal) sitagliptin phosphate 100 mg 100 mg PO QDAY ##30 01/1211/28/22 History tablet (Januvia) cilostazol 50 mg tablet 50 mg PO BID #0 tabs 7 11/28/22 History insulin detemir U-100 100 unit/mL 30 unit subcut HS #0 vials 06/05/17 11/28/22 History subcutaneous solution (Levemir U-100 Insulin) acetaminophen 300 mg-codeine 60 mg 1 tab PO PRN PRN Pa in 06/27/20 11/28/22 History tablet amitriptyline 50 mg tablet 50 mg PO HS 06/27/20 History diazepam 5 mg tablet 5 mg PO BID 06/27/20 3 History duloxetine 30 mg capsule,delayed 30 mg PO HS 06/27/20 11/28/22 History release gabapentin 300 mg capsule 300 mg PO HS 08/13/20 01/14/ 23 History hydroxyzine HCl 25 mg tablet 25 mg PO PRN PRN Itching 06/27/20 11/28/22 History omeprazole 20 mg tablet,delayed 20 mg PO QDAY 06/27/20 11/28/22 History release Allergies Allergy/AdvReac Type Severity Reaction Status Date / Time No Known Allergies Allergy Verified 02/09/24 08:32 Visit Medications Acetaminophen (Acetaminophen Supp 650 Mg Supp) 975 mg MO Q8HR PRN PRN Reason: Fever > 100.4 Stop: 08/08/25 21:04 Last Admin: 07/09/25 21:27 Dose: 975 mg Sodium Chloride (Ns) 500 mls @ 999 mls/hr IV .Q31M ONE Stop: 07/10/25 01:32 Discontinued Medications Sodium Chloride (Ns) 1,983 mls @ 1,983 mls/hr 30 ml/kg infuse over 60 min (1983 ml) IV .Q1H ONE Stop: 07/09/25 22:04 Last Infusion: 07/09/25 22:57 Dose: Infused Piperacillin/Tazobactam/Dextrose (Zosyn) 3.375 gm in 50 mls @ 100 mls/hr IV X1 ONE Stop: 07/09/25 21:34 Last Infusion: 07/09/25 22:05 Dose: Infused Morphine Sulfate (Morphine Sulf Inj 10 Mg/Ml Vial) 4 mg IVP X1 ONE Stop: 07/09/25 21:22 Last Admin: 07/09/25 21:27 Dose: 4 mg Ondansetron HCl (Ondansetron Inj 2 Mg/Ml Inj 2 Ml) 4 mg IVP X1 ONE; Protocol Stop: 07/09/25 21:22 Last Admin: 07/09/25 21:27 Dose: 4 mg Assessment & Plan Plan 64M with PMH DM2 (IDDM), PAD with prior amputations, splenectomy (2022, on Eliquis/ASA), hypothyroidism, HTN, and psychiatric history, presenting with sepsis due to bilateral pneumonia and diabetic foot infection with osteomyelitis, complicated by acute hypoxemic respiratory failure and MARISOL. # Sepsis, unspecified organism Presented febrile, tachycardic, tachypneic, leukocytosis, lactate 3. Source likely multifocal (bilateral pneumonia + diabetic foot osteomyelitis). qSOFA = 2 (RR >22, hypoxia). Sepsis bundle completed (30 cc/kg bolus, abx, cultures drawn) Plan: * Continue IV piperacillin-tazobactam + add vancomycin (renally dose both) * Blood cultures pending; tailor abx to sensitivities * Trend lactate until normalized * Strict I&O, vitals q4h, tele * Continue NS at 75 cc/hr maintenance; reassess fluid status given PAD/renal disease # Acute hypoxemic respiratory failure, due to # Pneumonia, unspecified organism Hypoxia 82% RA, improved with O2 CXR with diffuse bilateral pneumonia. Plan: * Maintain O2 sat >92%, titrate O2 support as needed * Monitor for increasing O2 requirement * Nebs PRN if wheeze develops * Recheck CXR if worsening # Type 2 DM with foot ulcer # Osteomyelitis of the left foot Plantar ulcer with erythema, lymphangitic streaking, XR showing osteomyelitis, MRI pending. Plan: * Continue broad spectrum antibiotics * Consult general surgery for possible debridement * Wound care consult * NPO after midnight for possible procedures # Acute kidney injury Cr 1.8, baseline 0.9 Likely prerenal from sepsis. Plan: * Monitor BMP daily * Adjust meds for renal dosing * Avoid nephrotoxins * Strict I&O # Peripheral arterial disease, unspecified Severe PAD on duplex, diminished distal pulses. Plan: * Patient uncertain if still on Eliquis (was prescribed after splenectomy); confirm via med rec/pharmacy * Continue aspirin * Smoking cessation counseling * Outpatient vascular surgery consult # Type 2 Diabetes Mellitus with complications Poor control, BG 256, unclear insulin regimen. 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 Plan: * Confirm vaccination status (pneumococcal, meningococcal, Hib) * Monitor closely for encapsulated organism sepsis # Psychiatric history (Bipolar, MDD & PTSD) Stable, tangential speech but oriented. Plan: * Resume home psych meds once reconciled * Psych consult PRN Health Maintenance Disposition: Admit to tele Diet: NPO after midnight (diabetic diet once cleared) Thromboprophylaxis: SQ heparin GI prophylaxis: PPI Code Status: Patient confirmed DNR ----- Plan discussed with attending physician Dr. Epifanio Gama MD PGY-1 Internal Medicine
[2025-07-10] MEDS: SODIUM CHLORIDE 0.9% 500 ML 500 ML 999 ML IV (01:15)
--- NOTE | 2025-07-10 01:41 | XR_ITS ---
Examination: Duplex scan of the lower extremity, unilateral left Date and time of exam: July 10, 2025, 0829 hours INDICATIONS: Left foot nonhealing wound and redness beginning 3 months ago. Technique: Duplex scan of the extremity veins using B-mode/grayscale imaging and Doppler spectral analysis and color flow Attention is directed to internal echogenicity, compression and augmentation involving these veins, color flow assessment, spectral analysis Findings: Major deep venous structures in the extremity demonstrate normal course and caliber. There is no evidence of deep vein thrombosis. Normal color flow and spectral analysis Impression: Negative for DVT..
[2025-07-10] MEDS: SODIUM CHLORIDE 0.9% 1000 ML 1,000 ML 75 ML IV (02:36)
--- NOTE | 2025-07-10 04:17 | PC.NURSE ---
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
--- NOTE | 2025-07-10 04:31 | PC.NURSE ---
Dr. Gama made aware of magnesium 1.2, per MD will put in order for magnesium IV.
[2025-07-10] MEDS: INSULIN LISPRO (AdmeLOG) 1 UNIT/0.01 ML UNIT SC ×2 (05:54→12:25)
[2025-07-10] MEDS: Magnesium Sulfate 4 GM Ivpb 4 GM/50 ML BAG IV (05:55)
[2025-07-10] MEDS: PIPER/TAZO INJ 4.5 GM in SODIUM CHLORIDE 0.9% (POP) 100 ML IV ×3 (05:56→21:02)
--- NOTE | 2025-07-10 06:05 | PC.NURSE ---
pt unable to recall his home meds and stated to call his for list. pt alert and oriented x3,during conversation pt changes topic most of time and RN has to redirect him.
[2025-07-10 08:56] LABS: Basophils # (Auto) 0.1 Thou/mm3 (0.0-0.2); Basophils % (Auto) 0 % (0-2.5); Eosinophils # (Auto) 0.1 Thou/mm3 (0.0-0.5); Eosinophils % (Auto) 0 % (0-10); Hematocrit 30.5 % (41.0-53.0); Hemoglobin 10.1 g/dL (13.5-16.0); Immature Granulocytes Auto 0.13 Thou/mm3 (0.00-0.00); Lymphocytes # (Auto) 1.1 Thou/mm3 (1.0-4.8); Lymphocytes % (Auto) 5 % (10-50); Mean Corpuscular HGB Conc 33.1 g/dl (31.0-37.0); Mean Corpuscular Hemoglobin 28.5 pg (25.0-35.0); Mean Corpuscular Volume 86 fL (80-100); Monocytes # (Auto) 1.2 Thou/mm3 (0.0-0.8); Monocytes % (Auto) 5 % (0-12); Neutrophils # (Auto) 21.2 Thou/mm3 (1.8-7.7); Neutrophils % (Auto) 89 % (37-80); Nucleated Red Blood Cell # 0.02 Thou/mm3 (0.00-0.00); Nucleated Red Blood Cell % 0 /100 WBC (0); Platelet Count 442 Thou/mm3 (140-440); RDW Standard Deviation 48.2 fL (35.1-43.9); Red Blood Count 3.55 Miln/mm3 (4.50-5.90); White Blood Count 23.8 Thou/mm3 (3.8-10.6)
[2025-07-10 09:02] LABS: Alanine Aminotransferase 10 U/L (10-49); Albumin, Serum 3.6 gm/dL (3.4-4.8); Albumin/Globulin Ratio 1.3 (1.2-2.2); Alkaline Phosphatase 64 U/L (46-116); Anion Gap 10 (7-16); BUN/Creatinine Ratio 22 Ratio (12-20); Bilirubin,Total 0.3 mg/dL (0.3-1.2); Blood Urea Nitrogen 28 mg/dL (9-23); Calcium 7.9 mg/dL (8.3-10.6); Calcium (Corrected) 8.2 mg/dL (8.5-10.1); Carbon Dioxide 23.0 mMol/L (20.0-31.0); Chloride 100 mMol/L (98-107); Creatinine (Component) 1.3 mg/dL (0.6-1.3); Estimated Creatinine Clearance 61.4 mL/min (>60); Globulin 2.7 gm/dL (2.3-3.5); Glucose 312 mg/dL (74-106); Magnesium 1.8 mg/dL (1.6-2.6); Osmolality,Calculated 283 (275-295); Potassium 3.3 mMol/L (3.4-5.1); Sodium 133 mMol/L (136-145); Total Protein 6.3 gm/dL (5.7-8.2); eGFR > 60 See Note
[2025-07-10] MEDS: VANCOMYCIN/WATER 1250 MG IVPB 250 ML 120 MG IV (09:07)
[2025-07-10 09:10] LABS: Glucose Estimated Average 223 mg/dL (80-131); Hemoglobin A1C 9.4 % Hgb (4.8-6.0)
[2025-07-10] MEDS: HEPARIN SOD INJ 5000 UNIT/ML VIAL SC ×2 (09:14→21:03)
[2025-07-10 09:24] LABS: Aspartate Amino Transferase 14 U/L (0-34)
[2025-07-10 09:55] LABS: Sed Rate (ESR) 72 mm/hr (0-20)
--- NOTE | 2025-07-10 10:10 | ESPR_ITS ---
<Statement entered by Muna Mckenna MD - 07/11/25 14:39> Pt was in MRI when I rounded, But later nurse called that pt was agitated and was aggressive toward staff as well as having suicidal ideation. pt was seen at bedside then, pt was still very agitated, will order 1-1 for safety reason. Per surgery, currently pt is not a surgical candidate and no need for amputations. Will consult ID for further recommendations. Patient was seen and examined by me personally. I have directly supervised and reviewed documentation by the team resident and agree with its findings. ------- Plan of care was discussed with the attending, Dr. Marilu Mckenna, PGY-2 Documentation for date of: 07/10/25 Subjective Subjective Interval history: Today patient was seen and examined at bedside with present. The patient repeatedly expressed a strong preference for outpatient management with antibiotics, stating he does not wish to be hospitalized or to in the hospital. He was reassured that, given the suspected diagnosis of osteomyelitis, inpatient treatment with intravenous antibiotics is strongly recommended to ensure appropriate and effective care. He was also informed that we are currently awaiting the surgical team's evaluation and recommendations based on the recent MRI findings, and that further management will be guided accordingly. Saturating well on room air. AM labs reviewed. Significant for Lactate 1.2, wbc 23.8, Hgb 10.1, Hct 30.5, K 3.3 ( repleted KCl 40meq) Glucose 312- started degludec 15 unit HS. Patient already on insulin sliding scale. Resume homes meds: Lamotrigine 100mg, Duloxetine 90mg, diazepam 5mg. Diet was advanced form NPO to pureed in response to the patients increase agitation and irritability, which appear to be related to hunger. Exam Vital Signs Temp Pulse Resp BP Pulse Ox O2 Del Method O2 Flow Rate 97.6 F 78 23 H 122/69 95 Oxy Mask 3 07/10/25 08:00 07/10/25 08:00 07/10/25 08:00 07/10/25 08:00 07/10/25 08:00 07/10/25 08:00 07/10/25 08:00 Narrative Exam General: irritable, in mild-moderate distress .Tangential but oriented ?4. HEENT: Normocephalic, atraumatic, PERRL, MMM, oropharynx clear. Neck: Supple, no JVD. Cardiac: Tachycardic, regular, no murmurs. Respiratory: Mild tachypnea, bibasilar crackles, no wheezes/rhonchi. Abdomen: distended, non-tender, no rebound/guarding, +BS. Extremities: L foot plantar wound at 2nd, 3rd distal metatarsal head, nontender. 4th toe amputation. No sensation bilaterally. Absent sensation in LE to light touch and pinprick. Diminished distal pulses Neuro: Awake, alert, CN II?XII intact, motor/sensory grossly intact. Psych: Tangential speech, appropriate affect. Skin: Warm, dry, erythematous changes over L foot. Objective Labs 07/12/25 06:19 07/12/25 06:19 Labs: Laboratory Results - last 24 hr 07/09/25 07/09/25 07/10/25 21:10 22:40 00:53 WBC 14.1 H RBC 4.65 Hgb 13.0 L Hct 39.2 L MCV 84 MCH 28.0 MCHC 33.2 RDW Std Deviation 46.5 H Plt Count 541 H Neut % (Auto) 86 H Lymph % (Auto) 10 [place] % (Auto) 3 Eos % (Auto) 0 Baso % (Auto) 0 Neut # (Auto) 12.2 H Lymph # (Auto) 1.4 [place] # (Auto) 0.5 Eos # (Auto) 0.0 Baso # (Auto) 0.0 Immature Gran # (Auto) 0.05 H Absolute Nucleated RBC 0.02 H Immature Gran % 0 Nucleated RBC % 0 ESR PT 12.6 H INR 1.2 APTT 26.8 Puncture Site Right Radial ABG pH 7.35 ABG pCO2 46 ABG pO2 82 L ABG HCO3 25 ABG O2 Saturation 96 ABG Base Excess -1 Oxygen Liter Flow 10 Sodium 133 L Potassium 3.6 Chloride 94 L Carbon Dioxide 24.5 Anion Gap 15 BUN 33 H Creatinine 1.8 H Estim Creat Clear Calc 42.9 L eGFR 42 L BUN/Creatinine Ratio [address] Glu mg/dL Hemoglobin A1c Calculated Osmolality 282 Lactic Acid 3.0 H 1.2 Calcium 9.8 Corrected Calcium 9.8 Phosphorus 4.0 Magnesium 1.2 L Total Bilirubin 0.4 AST 23 ALT 13 Alkaline Phosphatase 83 Lactate Dehydrogenase 290 H Troponin I < 0.020 B-Natriuretic Peptide 94 Total Protein 7.7 Albumin 4.6 Globulin 3.1 Albumin/Globulin Ratio 1.5 Lipase 36 Procalcitonin 1.96 H Ur Collection Type Clean Catch Urine Color Yellow Urine Clarity Clear Urine pH 6.0 Ur Specific [place] 1.022 Urine Protein 2+ A Urine Glucose (UA) 4+ A Urine Ketones Negative Urine Blood Negative Urine Nitrite Negative Urine Bilirubin Negative Urine Urobilinogen (Auto) Negative Ur Leukocyte Esterase Negative Urine RBC 2 Urine WBC 1 Ur Squamous Epith Cells 0 Urine Bacteria None Hyaline Casts < 1 Ur Culture Indicated? Not Indicated 07/10/25 08:06 WBC 23.8 H D RBC 3.55 L Hgb 10.1 L D Hct 30.5 L MCV 86 MCH 28.5 MCHC 33.1 RDW Std Deviation 48.2 H Plt Count 442 H D Neut % (Auto) 89 H Lymph % (Auto) 5 L [place] % (Auto) 5 Eos % (Auto) 0 Baso % (Auto) 0 Neut # (Auto) 21.2 H Lymph # (Auto) 1.1 [place] # (Auto) 1.2 H Eos # (Auto) 0.1 Baso # (Auto) 0.1 Immature Gran # (Auto) 0.13 H Absolute Nucleated RBC 0.02 H Immature Gran % 1 H Nucleated RBC % 0 ESR 72 H PT INR APTT Puncture Site ABG pH ABG pCO2 ABG pO2 ABG HCO3 ABG O2 Saturation ABG Base Excess Oxygen Liter Flow Sodium 133 L Potassium 3.3 L Chloride 100 Carbon Dioxide 23.0 Anion Gap 10 BUN 28 H Creatinine 1.3 D Estim Creat Clear Calc 61.4 eGFR > 60 BUN/Creatinine Ratio 22 H Glucose [address] Glu mg/dL 223 H Hemoglobin A1c 9.4 H Calculated Osmolality 283 Lactic Acid Calcium 7.9 L D Corrected Calcium 8.2 L D Phosphorus Magnesium 1.8 Total Bilirubin 0.3 AST 14 ALT 10 Alkaline Phosphatase 64 D Lactate Dehydrogenase Troponin I B-Natriuretic Peptide Total Protein 6.3 Albumin 3.6 D Globulin 2.7 Albumin/Globulin Ratio 1.3 Lipase Procalcitonin Ur Collection Type Urine Color Urine Clarity Urine pH Ur Specific [place] Urine Protein Urine Glucose (UA) Urine Ketones Urine Blood Urine Nitrite Urine Bilirubin Urine Urobilinogen (Auto) Ur Leukocyte Esterase Urine RBC Urine WBC Ur Squamous Epith Cells Urine Bacteria Hyaline Casts Ur Culture Indicated? ABG Interpretation ABG results: 07/09/25 22:40 ABG pH 7.35 ABG pCO2 46 ABG pO2 82 L ABG HCO3 25 ABG O2 Saturation 96 ABG Base Excess -1 Quality Measures Quality Measures sepsis Current suspected stage: ruled out Possible source: pulmonary, skin/soft tissue and wound Blood cultures ordered: yes Antibiotic ordered: Yes Assessment & Plan Assessment Current Active Medications: Generic Name Dose Route Start Last Admin Trade Name Freq PRN Reason Stop Dose Admin Acetaminophen 975 mg 07/09/25 21:05 07/09/25 21:27 Acetaminophen Supp 650 Mg Supp CA 08/08/25 21:04 975 mg Q8HR PRN Administration Fever > 100.4 Protocol Acetaminophen 650 mg 07/10/25 01:31 Acetaminophen 325 Mg Tablet PO 08/09/25 01:30 Q6H PRN Fever >100.4 or pain 1-3 Protocol Dextrose 25 ml 07/10/25 01:36 Dextrose 50%-Water Inj 50 Ml Syringe IV 08/09/25 01:35 Q15MIN PRN BG 50-70 responsive npo pt Dextrose 50 ml 07/10/25 01:36 Dextrose 50%-Water Inj 50 Ml Syringe IV 08/09/25 01:35 Q15MIN PRN BG <50 OR BG <70 & pt unresponsive Glucagon 1 mg 07/10/25 01:36 Glucagon Inj 1 Mg Vial IM Q15MIN PRN BG <70, and no IV access Heparin Sodium (Porcine) 5,000 unit 07/10/25 09:00 07/10/25 09:14 Heparin Sod Inj 5000 Unit/Ml Vial SC 07/24/25 08:59 5,000 unit Q12HR RAFAEL Administration Sodium Chloride 1,000 mls @ 75 mls/hr 07/10/25 01:45 07/10/25 02:36 Ns IV 08/09/25 01:44 75 mls/hr .[id number] RAFAEL Administration Piperacillin Sod/Tazobactam 100 mls @ 25 mls/hr 07/10/25 14:00 Sod 4.5 gm/ Sodium Chloride IV 07/17/25 13:59 Q8HR RAFAEL Protocol Vancomycin HCl 250 mls @ 120 mls/hr 07/10/25 10:00 07/10/25 09:07 Vancomycin/Water 1250 Mg Ivpb IV 07/17/25 09:59 120 mls/hr QDAY@1000 RAFAEL Administration Insulin Human Lispro 0 unit 07/10/25 01:45 07/10/25 05:54 Insulin Lispro (Admelog) 1 Unit/0.01 Ml Unit SC 08/09/25 01:44 3 unit Q6HR RAFAEL Administration Protocol Pantoprazole Sodium 40 mg 07/10/25 09:00 07/10/25 09:13 Pantoprazole Inj 40 Mg Vial IVP 08/09/25 08:59 40 mg QDAY RAFAEL Administration Pharmacy Consult 1 each 07/10/25 09:00 Vancomycin Pharmacy To Dose 1 Each Each IV 08/09/25 08:59 QDAY PRN CONSULT Plan 64M with PMH DM2, PAD s/p 2 toes digits amputation splenectomy, hypothyroidism, HTN, MDD, Bipolar disorder, PTSD, presenting to ED with worsening left foot pain and shortness of breath. Admitted for acute hypoxic respiratory failure and osteomyelitis evaluation and management. #Sepsis in the setting of acute hypoxic respiratory failure #Secondary community acquired Pneumonia On admission pt was febrile, tachycardic 103.5, tachypneic 127, leukocytosis, lactate 3. Source likely multifactorial (bilateral pneumonia + diabetic neuropathy and hx of osteomyelitis) Hypoxia 82% RA, improved with O2 CXR: significant diffuse bilateral pneumonia qSOFA 2 (RR>22, hypoxia) Plan - Continue Zosyn (07/10)- - Continue vancomysin (07/10)- - Blood culture pending - Discontinue IV maintenance fluids - Continue to monitor mentation #Osteomyelitis of the third metatarsal Osteomyelitis on left foot, amputation of fourth toe, there is an open wound on the plantar area corresponding to the third toe. On examination there is a left foot nonhealing wound and redness worsening over the past few days. Foot X-Ray:Cortical bone erosions in the amputated 3rd metatarsal, osteomyelitis distal 3rd metatarsal. Foot MRI: amputations distal 3rd metatarsal, proximal 4th digit, Soft tissue infection about the distal third metatarsal with cortical bone destruction involving the distal aspect of the third metatarsal Venous doppler left leg: Negative for DVT Plan - Surgery consulted-no surgery required, no debridement or drainage needed. Continue IV antibiotics - Wound care - Iv antibiotics as above #Peripheral Artery Disease Duplex sonography shows severe peripheral obstructive arterial disease left lower extremity. Diminished distal pulses present on examination. On medication cilostazol 50 mg p.o. twice daily Plan - Continue to monitor - Smoking cessation counseling - Will consider restarting cilostazol, pending med rec #Acute kidney injury (resolving) On admission pt cr 1.8 with baseline 0.9. Likely prerenal secondary to sepsis. Patient recived 2L NS in ED. Renal panel is within normal limit. Plan -Avoid nephrotoxins -Monitor renal panel -Renally dosed medications - Continue to monitor CMP #Non-insulin depended Diabetes Mellitus II # Diabetic neuropathy On admission glucose 256, A1c 9.4. Hx of neuropathy manage with home medication gabapentin, Plan - pending med recc - insulin sliding scale step 1 - started degludec 15 units HS - resumed home gabapentin 300mg PO BID #Bipolar disorder #Major Depressive Disorder #Post-traumatic stress disorder Stable, but irritable and tangential speech. Plan - Resume home lamotrigine 100 mg PO - resumed duloxetine 90mg - Midazolam 2mg IVP PRN - Diazepam 5mg for agitation # Hypothyroidism Per chart review pt has history of hypothyroidism managed with home levothyroxine 75 mg p.o. 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 Mckenna PGY-2 Camryn Baez MD PGY-1, Internal Medicine Attending Provider Attestation/Addendum I attest that I was physically present for the evaluation, physical examination, lab and imaging review of the patient with the residents. I discussed the case with the residents and agree with the findings and plans of care as documented above. At bedside today, patient stated that he is getting agitated because he has not received diet. Also stated that he will become aggressive if he gets anxious. Later on, he also mentioned of having suicidal ideation. Started him on diet, resumed his home diazepam. As per the family, patient is not in his baseline, also resumed his lamotrigine, duloxetine,. He also received IM ziprasidone, IV Haldol which helped with agitation. We will also have one-on-one sitter at bedside. We will continue with IV Zosyn and vancomycin for osteomyelitis, community-acquired pneumonia and GPC bacteremia. Infectious disease have been consulted, also awaiting general surgery recommendations. Kidney function is improving, continues to be on insulin regimen for diabetes, levothyroxine for hypothyroidism. Shaneka Michel MD
[2025-07-10 10:37] LABS: C-Reactive Protein 24.1 mg/dL (0.0-0.9)
[2025-07-10] MEDS: DIAZEPAM 5 MG TABLET PO ×2 (14:05→21:03)
[2025-07-10 14:37] LABS: Band Neutrophils (Manual) 33 % (0-6); Lymphocytes (Manual) 4 % (20-44); Monocytes (Manual) 5 % (2-9); Neutrophils (Manual) 58 % (50-70)
--- NOTE | 2025-07-10 14:44 | PC.SS ---
FLOOR WINDER notified by resident that patient expressed suicidal ideation to bedside nurse, family and resident. FLOOR WINDER informed resident that mental health evaluation will be conducted upon patient meeting medical clearance. FLOOR WINDER notifed charge nurse to initiate 1:1 sitter. FLOOR WINDER updated kit planner and left voicemail for ED coordinator.
[2025-07-10] MEDS: MIDAZOLAM INJ 1 MG/ML VIAL 2 ML 2 MG IVP (15:11)
[2025-07-10] MEDS: HALOPERIDOL LACT INJ 5 MG/ML VIAL 2.5 MG IV ×2 (15:15→15:40)
--- NOTE | 2025-07-10 15:37 | PC.SS ---
SS met with while patient was in MRI. SS met with regarding patient's d/c plan this morning. Pt is alert/oriented. Pt was admitted for Osteomyelitis Of The Foot. confirmed patient's demographic and contact information is correct on facesheet. Pt resides with . Pt ambulates using a cane. assists pt with ADLs. [facility] utilizes [id number]. , Manisha Loaiza states she is patient's medical decision maker if he unable. Per , pt will return home upon d/c. states pt is diabetic, has glucometer, and test strips. Pt followed up with PCP 2 months ago. will provide transportation home. D/C plan: Return home Next of Kin: Manisha Loaiza, , phone# [phone] PCP: Dr. Sherwin Allison from [facility] Address: Correct on facesheet
[2025-07-10] MEDS: ZIPRASIDONE INJ 20 MG/ML VIAL (NON-FORMULARY) 10 MG IM (16:26)
--- NOTE | 2025-07-10 18:35 | PD.SURCONS ---
HPI Consult details Consult date: 07/10/25 Reason for consultation narrative: Patient was seen in consultation for osteomyelitis of the third metatarsal and open wound on the left foot Meds Home Medications and Allergies Home Medications ?Medication ?Instructions ?Recorded ?Confirmed ?Type gabapentin 300 mg capsule 600 mg PO QAM ##0 12/18/12 11/28/22 History (Neurontin) hydrochlorothiazide 25 mg tablet 25 mg PO QAM ##0 12/18/12 11/28/22 History levothyroxine 75 mcg tablet 75 mcg PO QDAY ##0 12/18/12 11/28/22 History duloxetine 60 mg capsule,delayed 60 mg PO QAM #0 caps 01/31/14 11/28/22 History release (Cymbalta) gemfibrozil 600 mg tablet (Lopid) 600 mg PO BID #0 tabs 01/31/14 11/28/22 History cyclobenzaprine 10 mg tablet 10 mg PO HS #0 tabs 04/29/16 11/28/22 History glyburide 5 mg-metformin 500 mg 1 tab PO BID #0 tabs 04/29/16 11/28/22 History tablet carvedilol 3.125 mg tablet (Coreg) 3.125 mg PO BID ##60 01/12/17 11/28/22 History docusate sodium 50 mg capsule 50 mg PO QDAY ##30 01/12/17 11/28/22 History (Stool Softener) lamotrigine 100 mg tablet 100 mg PO QDAY ##30 01/12/17 11/28/22 History (Lamictal) sitagliptin phosphate 100 mg 100 mg PO QDAY ##30 01/12/17 11/28/22 History tablet (Januvia) cilostazol 50 mg tablet 50 mg PO BID #0 tabs 06/05/17 11/28/22 History insulin detemir U-100 100 unit/mL 30 unit subcut HS #0 vials 06/05/17 11/28/22 History subcutaneous solution (Levemir U-100 Insulin) acetaminophen 300 mg-codeine 60 mg 1 tab PO PRN PRN Pain 06/27/20 11/28/22 History tablet amitriptyline 50 mg tablet 50 mg PO HS 06/27/20 11/28/22 History diazepam 5 mg tablet 5 mg PO BID 06/27/20 11/28/22 History duloxetine 30 mg capsule,delayed 30 mg PO HS 06/27/20 11/28/22 History release gabapentin 300 mg capsule 300 mg PO HS 06/27/20 11/28/22 History hydroxyzine HCl 25 mg tablet 25 mg PO PRN PRN Itching 06/27/20 11/28/22 History omeprazole 20 mg tablet,delayed 20 mg PO QDAY 06/27/20 11/28/22 History release Allergies Allergy/AdvReac Type Severity Reaction Status Date / Time No Known Allergies Allergy Verified 02/09/24 08:32 Exam Vital Signs Temp Pulse Resp BP Pulse Ox O2 Del Method O2 Flow Rate 101.1 F H 98 30 H 134/71 H 95 Oxy Mask 3 07/10/25 16:00 07/10/25 16:00 07/10/25 16:00 07/10/25 16:00 07/10/25 16:00 07/10/25 16:00 07/10/25 16:00 Narrative Exam Examination revealed 64-year-old man with temperature elevation and tachycardia. Routine Extremities Exam Comments: Examination of the left foot showed amputation of the fourth toe. There is an open wound on the plantar aspect corresponding to the third toe. Upon compression I did not see any drainage. There is considerable cellulitis over the dorsal aspect of the left foot Assessment & Plan Additional Assessment Additional comments: Impression: Osteomyelitis of the third metatarsal Open wound on the sole of the left foot Plan Plan: Patient does not require any surgery because the wound is open and draining. Patient has considerable cellulitis over the dorsal aspect of the left foot and will require antibiotic. This osteomyelitis requires antibiotic therapy. The wound care will be needed for the sole of the foot. No debridement or drainage is needed at this time.
[2025-07-10] MEDS: ACETAMINOPHEN 325 MG TABLET 650 MG PO (20:16)
--- NOTE | 2025-07-10 20:25 | PC.NURSE ---
Stevenn provided a medication list prior to shift change; unable to input at this time. Pt being transferred to Med-Surg, list passed on to oncoming shift Nurse Juhi RN for med reconciliation.
--- NOTE | 2025-07-10 20:27 | PC.NURSE ---
Pt transferred to room 362 with BEATRIZ Reynaga.
[2025-07-10] MEDS: DULoxetine HCL 30 MG CAPSULE 90 MG PO (21:03)
[2025-07-10] MEDS: GABAPENTIN 300 MG CAPSULE PO (21:03)
[2025-07-10] MEDS: AMITRIPTYLINE HCL 25 MG TABLET 50 MG PO (21:03)
[2025-07-11] VITALS (8 sets, daily range): BP systolic 113–133; BP diastolic 65–75; PULSE 74–111; RESP 18–30; TEMP 36.2–37.3; O2SAT 93–97; BMI 30.9; BMI 31.0
[2025-07-11] MEDS: PIPER/TAZO INJ 4.5 GM in SODIUM CHLORIDE 0.9% (POP) 100 ML IV (06:56)
--- NOTE | 2025-07-11 07:52 | EKG_ITS ---
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
[2025-07-11] MEDS: DIAZEPAM 5 MG TABLET PO ×2 (08:03→20:47)
[2025-07-11] MEDS: GABAPENTIN 300 MG CAPSULE PO ×2 (08:03→20:47)
[2025-07-11] MEDS: guaiFENesin SYRUP 200 MG/10 ML UDC 100 MG PO (08:04)
[2025-07-11] MEDS: HEPARIN SOD INJ 5000 UNIT/ML VIAL SC ×2 (08:05→20:47)
[2025-07-11 10:24] LABS: Collection Type, Urine Clean Catch
[2025-07-11 10:35] LABS: Bacteria,Urine Rare; Bilirubin,Urine Negative (Negative); Blood,Urine 3+ (Negative); Color,Urine Yellow (Lt Yel-Yel); Culture Indicated,Urine Not Indicated; Glucose, Urine Negative (Negative); Ketones,Urine Negative (Negative); Leukocyte Esterase,Urine Negative (Negative); Nitrite,Urine Negative (Negative); PH,Urine 6.0 (5.0-7.0); Protein,Urine 2+ (Neg - Trace); RBC,Urine 142 /hpf (0-3); Specific Gravity,Urine 1.026 (1.001-1.035); Squamous Epithelial Cell,Urine < 1 /hpf (0-5); Urobilinogen,Urine Negative mg/dL (0.0-1.0); WBC,Urine 5 /hpf (0-5)
--- NOTE | 2025-07-11 10:39 | PC.DIETICIAN ---
Dietitian Recommendation:Add Vitamin C 500mg BID daily, zinc 220mg [id number], Multivitamin-Mineral daily to ensure adequate nutrient intake and promote wound healing. Thank you
[2025-07-11 10:43] LABS: Clarity,Urine Hazy (Clear/Hazy)
--- NOTE | 2025-07-11 10:48 | ECHO_ITS ---
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 LV Ejection Fraction MOD 4C 45.5 % LV Cardiac Index MOD 4C 2452.7 cm?/min?m? LV Ejection Fraction 4C AL 47.1 % LV Cardiac Index 4C AL 2686.7 cm?/min?m? LV Ejection Fraction MOD 2C 47.8 % LV Cardiac Index MOD 2C 2968.8 cm?/min?m? LV Ejection Fraction 2C AL 48.6 % LV Cardiac Index 2C AL 3125.1 cm?/min?m? LA Volume Index 26.7 cm?/m? 16 - 28 cm?/m? FINDINGS Left Ventricle Normal left ventricular size, wall thickness. Normal left ventricular diastolic function. The ejection fraction is visually estimated at 45-50 %. Global left ventricular systolic function is mildly decreased. Right Ventricle The right ventricle is normal in size and systolic function. Left Atrium The left atrium is normal by two-dimensional, color flow and Doppler imaging with no structural abnormalities, no thrombus formation present. Right Atrium The right atrium is normal by two-dimensional imaging, color flow and Doppler imaging with no structural abnormalities, no thrombus formation present. Atrial Septum The interatrial septum appears normal with no evidence of a shunt. Aorta The aorta is normal by two-dimensional, color flow and Doppler interrogation. Mitral Valve The mitral valve is normal by two-dimensional, color flow and Doppler interrogation. Trace mitral regurgitation. Aortic Valve The aortic valve is trileaflet and normal by two-dimensional, color flow and Doppler interrogation. There is no significant aortic valve regurgitation. Tricuspid Valve The tricuspid valve is normal by two-dimensional, color flow and Doppler interrogation. There is trace tricuspid valve regurgitation. Pulmonic Valve The pulmonic valve is not well visualized. Trivial pulmonic valve regurgitation. Vessels The pulmonary artery appears normal. The inferior vena cava pulmonary and hepatic veins appear normal. Pericardium The pericardium is normal by two-dimensional imaging. There is no significant pericardial effusion. CONCLUSIONS Indication: gpc Normal LV size, wall thickness. Normal left ventricular diastolic function. Estimated EF at 45-50 %. Global left ventricular systolic function is mildly decreased. The RV is normal in size and systolic function. Trace MR and TR. Dilated IVC. Mild PI. Angel Pretty (Electronically Signed) Final Date: 14 July 2025 08:03
--- NOTE | 2025-07-11 10:49 | ESPR_ITS ---
Subjective Subjective Interval history: possible gpc bacteremia from foot infection vs contamination. abscess of L foot wtih prior amputation noted. dm II would not cruz to treat Exam Vital Signs Temp Pulse Resp BP Pulse Ox O2 Del Method O2 Flow Rate 97.9 F 109 H 28 H 132/66 H 93 L Nasal Cannula 3 07/11/25 08:00 07/11/25 08:00 07/11/25 08:00 07/11/25 08:00 07/11/25 08:00 07/11/25 08:00 07/11/25 08:00 Narrative Exam L foot red over 4th met as noted with imaging Objective - Internal Medicine Labs 07/10/25 08:06 07/10/25 08:06 Labs: Laboratory Results - last 24 hr 07/10/25 07/11/25 08:06 09:20 Neutrophils % (Manual) 58 Monocytes % (Manual) 5 Band Neutrophils 33 H Lymphocytes (Manual) 4 L Ur Collection Type Clean Catch Urine Color Yellow Urine Clarity Hazy Urine pH 6.0 Ur Specific [place] 1.026 Urine Protein 2+ A Urine Glucose (UA) Negative Urine Ketones Negative Urine Blood 3+ A Urine Nitrite Negative Urine Bilirubin Negative Urine Urobilinogen (Auto) Negative Ur Leukocyte Esterase Negative Urine RBC 142 H Urine WBC 5 Ur Squamous Epith Cells < 1 Urine Bacteria Rare Ur Culture Indicated? Not Indicated ABG Interpretation ABG results: 07/09/25 22:40 ABG pH 7.35 ABG pCO2 46 ABG pO2 82 L ABG HCO3 25 ABG O2 Saturation 96 ABG Base Excess -1 Assessment & Plan A&P Narrative possible abscess of foot noted on imaging with pos bc noted, gpc 2/2 in ED, same time or nearly so. dm II. a1c 9.4 control dm. narrowed to vanco alone pending micro.i ordered repeat bc, but if bc with coag neg then likely a contaminant unless repeats also positive from tomorrow. I will not be here wednesday, so ok to treat for 6 weeks from neg bc if bc neg at 48h. rocephin and doxy unless gpc is an mrsa, then have to get s to daptomycin as that may be what you give. I will be here on Wednesday, the holiday. If home on iv rx, then please do weekly cbc, renal pane, esr on iv rx and arrange removal of cvl prior to release. earliest I can next see pt in hospital is wednesday. I do not expect I will be able to see him at any of the clinics where I work, so have primary do the f/uif released before wednesday Time Spent With Patient Time: Total time spent is greater than 50% in coordination of care (as documented) at patient's floor/unit and/or counseling patient:
[2025-07-11] MEDS: VANCOMYCIN/WATER 1GM IVPB 200 ML IV ×2 (11:04→21:20)
[2025-07-11] MEDS: ZIPRASIDONE 20 MG CAPSULE PO ×2 (11:31→20:47)
[2025-07-11] MEDS: INSULIN LISPRO (AdmeLOG) 1 UNIT/0.01 ML UNIT SC (11:34)
[2025-07-11 13:57] LABS: Basophils % (Auto) 0 % (0-2.5); Eosinophils # (Auto) 0.1 Thou/mm3 (0.0-0.5); Hemoglobin 9.1 g/dL (13.5-16.0); Nucleated Red Blood Cell % 0 /100 WBC (0)
[2025-07-11 14:02] LABS: Basophils # (Auto) 0.1 Thou/mm3 (0.0-0.2); Eosinophils % (Auto) 0 % (0-10); Hematocrit 27.5 % (41.0-53.0); Immature Granulocytes Auto 0.22 Thou/mm3 (0.00-0.00); Lymphocytes # (Auto) 1.2 Thou/mm3 (1.0-4.8); Lymphocytes % (Auto) 5 % (10-50); Mean Corpuscular HGB Conc 33.1 g/dl (31.0-37.0); Mean Corpuscular Hemoglobin 27.9 pg (25.0-35.0); Mean Corpuscular Volume 84 fL (80-100); Monocytes # (Auto) 1.0 Thou/mm3 (0.0-0.8); Monocytes % (Auto) 4 % (0-12); Neutrophils # (Auto) 21.3 Thou/mm3 (1.8-7.7); Neutrophils % (Auto) 89 % (37-80); Nucleated Red Blood Cell # 0.03 Thou/mm3 (0.00-0.00); Platelet Count 492 Thou/mm3 (140-440); RDW Standard Deviation 47.2 fL (35.1-43.9); Red Blood Count 3.26 Miln/mm3 (4.50-5.90); White Blood Count 23.8 Thou/mm3 (3.8-10.6)
--- NOTE | 2025-07-11 14:08 | ESPR_ITS ---
<Statement entered by Muna Mckenna MD - 07/12/25 14:52> Pt is seen at bedside, currently calm and not agitated. Per ID recommendations will continue to IV antibiotics, and wait for repeat BG to decide the coarse of action with antibiotics. Pt will likely need a PICC line, final decision is pending based on culture results. Patient was seen and examined by me personally. I have directly supervised and reviewed documentation by the team resident and agree with its findings. ------- Plan of care was discussed with the attending, Dr. Marilu Mckenna, PGY-2 <Statement entered by Shaneka Michel MD - 07/12/25 08:46> I attest that I was physically present for the evaluation, physical examination, lab and imaging review of the patient with the residents. I discussed the case with the residents and agree with the findings and plans of care as documented below. Shaneka Michel MD Documentation for date of: 07/11/25 Subjective Subjective Interval history: Overnight events: No acute events overnight. Patient was seen and examined at bedside. AM vitals and labs reviewed. No acute complaints at this time. Patient initially refused AM lab draw. Patient agreeable to possible PICC line placement if necessary. General surgery does not have plans to perform debridement or drainage at this time. WBC remains high at 23.8 and phosphorus was low at 1.4 Started patient on ziprasidone 20 mg twice daily for agitation. Replenished phosphorus with sodium phosphate and Neutra-Phos packets. Infectious disease recommendations appreciated. Antibiotic narrowed to just vancomycin, repeat blood cultures 07/12, echocardiogram, continue vancomycin for 6 weeks if repeat cultures negative at 48 hours, but if repeat is positive for gram positive cocci, then manage with ceftriaxone and doxycycline (unless if organism is MRSA). Review of systems otherwise negative except for what is mentioned above. Exam Vital Signs Temp Pulse Resp BP Pulse Ox O2 Del Method O2 Flow Rate 97.5 F 87 24 H 129/72 95 Nasal Cannula 5 07/11/25 12:07/11/25 12:07/11/25 12:07/11/25 12:00 07/11/25 12:00 07/11/25 12:07/11/25 12:00 Narrative Exam Physical Exam: General: Alert, no acute distress. Skin: Warm, dry, intact. Head: Normocephalic, atraumatic. Eye: Normal conjunctiva, PERRL. Throat: Oral mucosa moist. No obvious lesions in oropharynx. Cardiovascular: Regular rate and rhythm, no murmur, +S1/S2. Respiratory: Lungs are clear to auscultation, respirations unlabored, bibasilar crackles, no wheezing. Gastrointestinal: Soft, nontender, distended. No guarding or rebound tenderness. Extremities: No edema, no cyanosis, no clubbing. L foot plantar wound at 2nd, 3rd distal metatarsal head, nontender. 4th toe amputation. Neuro: No focal deficits observed. Conversant, moving all extremities. No overt cerebellar signs/incoordination. Psychiatric: Cooperative, appropriate affect. Objective Labs 07/11/25 13:50 07/11/25 13:50 Labs: Laboratory Results - last 24 hr 07/10/25 07/11/25 07/11/25 08:06 09:20 13:50 WBC 23.8 H RBC 3.26 L Hgb 9.1 L Hct 27.5 L MCV 84 MCH 27.9 MCHC 33.1 RDW Std Deviation 47.2 H Plt Count 492 H D Neut % (Auto) 89 H Lymph % (Auto) 5 L Glenn % (Auto) 4 Eos % (Auto) 0 Baso % (Auto) 0 Neut # (Auto) 21.3 H Lymph # (Auto) 1.2 Glenn # (Auto) 1.0 H Eos # (Auto) 0.1 Baso # (Auto) 0.1 Immature Gran # (Auto) 0.22 H Absolute Nucleated RBC 0.03 H Immature Gran % 1 H Neutrophils % (Manual) 58 Monocytes % (Manual) 5 Nucleated RBC % 0 Band Neutrophils 33 H Lymphocytes (Manual) 4 L Ur Collection Type Clean Catch Urine Color Yellow Urine Clarity Hazy Urine pH 6.0 Ur Specific [place] 1.026 Urine Protein 2+ A Urine Glucose (UA) Negative Urine Ketones Negative Urine Blood 3+ A Urine Nitrite Negative Urine Bilirubin Negative Urine Urobilinogen (Auto) Negative Ur Leukocyte Esterase Negative Urine RBC 142 H Urine WBC 5 Ur Squamous Epith Cells < 1 Urine Bacteria Rare Ur Culture Indicated? Not Indicated ABG Interpretation ABG results: 07/09/25 22:40 ABG pH 7.35 ABG pCO2 46 ABG pO2 82 L ABG HCO3 25 ABG O2 Saturation 96 ABG Base Excess -1 Quality Measures Quality Measures sepsis Current suspected stage: sepsis Possible source: pulmonary, skin/soft tissue and wound Blood cultures ordered: yes Antibiotic ordered: Yes Assessment & Plan Assessment Current Active Medications: Generic Name Dose Route Start Last Admin Trade Name Freq PRN Reason Stop Dose Admin Acetaminophen 975 mg 07/09/25 21:05 07/09/25 21:27 Acetaminophen Supp 650 Mg Supp [place] 08/08/25 21:04 975 mg Q8HR PRN Administration Fever > 100.4 Protocol Acetaminophen 650 mg 07/10/25 01:31 07/10/25 20:16 Acetaminophen 325 Mg Tablet PO 08/09/25 01:30 650 mg Q6H PRN Administration Fever >100.4 or pain 1-3 Protocol Albuterol/Ipratropium 3 ml 07/11/25 07:51 Albuterol/Ipratropium (Duoneb) Rt Anya 3 Ml Nebu INH 08/10/25 07:50 Q2HR PRN SHORTNESS OF BREATH OR WHEEZE Dextrose 25 ml 07/10/25 01:36 Dextrose 50%-Water Inj 50 Ml Syringe IV 08/09/25 01:35 Q15MIN PRN BG 50-70 responsive npo pt Dextrose 50 ml 07/10/25 01:36 Dextrose 50%-Water Inj 50 Ml Syringe IV 08/09/25 01:35 Q15MIN PRN BG <50 OR BG <70 & pt unresponsive Diazepam 5 mg 07/10/25 13:30 07/11/25 08:03 Diazepam 5 Mg Tablet PO 07/15/25 13:29 5 mg BID RAFAEL Administration Duloxetine HCl 90 mg 07/10/25 21:00 07/10/25 21:03 Duloxetine Hcl 30 Mg Capsule PO 08/09/25 20:59 90 mg HS RAFAEL Administration Gabapentin 300 mg 07/10/25 21:00 07/11/25 08:03 Gabapentin 300 Mg Capsule PO 08/09/25 20:59 300 mg BID RAFAEL Administration Glucagon 1 mg 07/10/25 01:36 Glucagon Inj 1 Mg Vial IM Q15MIN PRN BG <70, and no IV access Heparin Sodium (Porcine) 5,000 unit 07/10/25 09:00 07/11/25 08:05 Heparin Sod Inj 5000 Unit/Ml Vial SC 07/24/25 08:59 5,000 unit Q12HR RAFAEL Administration Vancomycin HCl 200 mls @ 120 mls/hr 07/11/25 10:00 07/11/25 11:04 Vancomycin/Water 1gm Ivpb IV 07/18/25 09:59 120 mls/hr Q12H [facility] Administration Protocol Insulin Degludec 15 unit 07/10/25 21:00 07/10/25 21:02 Insulin Degludec 5 Unit/0.05 Ml (Per 5 Units) SC 08/09/25 20:59 Not Given HS [facility] Insulin Human Lispro 0 unit 07/11/25 17:00 Insulin Lispro (Admelog) 1 Unit/0.01 Ml Unit SC 08/10/25 16:59 AC [facility] Protocol Lamotrigine 100 mg 07/10/25 11:00 07/11/25 09:25 Lamotrigine 100 Mg Tablet PO 08/09/25 10:59 100 mg QDAY RAFAEL Administration Midazolam HCl 2 mg 07/10/25 15:19 Midazolam Inj 1 Mg/Ml Vial 2 Ml IVP X1 PRN Severe Agitation Pharmacy Consult 1 each 07/10/25 09:00 Vancomycin Pharmacy To Dose 1 Each Each IV 08/09/25 08:59 QDAY PRN CONSULT Ziprasidone 20 mg 07/11/25 11:15 07/11/25 11:31 Ziprasidone 20 Mg Capsule PO 08/10/25 11:14 20 mg BID RAFAEL Administration Plan 64M with PMH DM2, PAD s/p 2 toes digits amputation splenectomy, hypothyroidism, HTN, MDD, Bipolar disorder, PTSD, presenting to ED with worsening left foot pain and shortness of breath. Admitted for acute hypoxic respiratory failure and osteomyelitis evaluation and management. #Sepsis in the setting of acute hypoxic respiratory failure #Secondary community acquired Pneumonia On admission pt was febrile, tachycardic 103.5, tachypneic 127, leukocytosis, lactate 3. Source likely multifactorial (bilateral pneumonia + diabetic neuropathy and hx of osteomyelitis) Hypoxia 82% RA, improved with O2 CXR: significant diffuse bilateral pneumonia qSOFA 2 (RR>22, hypoxia) Plan - Vancomysin (07/10-08/21?) - Blood culture 07/09 collected, preliminary results show gram positive cocci from both bottles - Repeat blood cultures to be drawn 07/12 - Continue to monitor mentation - Echocardiogram ordered, pending #Osteomyelitis of the third metatarsal Osteomyelitis on left foot, amputation of fourth toe, there is an open wound on the plantar area corresponding to the third toe. On examination there is a left foot nonhealing wound and redness worsening over the past few days. Foot X-Ray:Cortical bone erosions in the amputated 3rd metatarsal, osteomyelitis distal 3rd metatarsal. Foot MRI: amputations distal 3rd metatarsal, proximal 4th digit, Soft tissue infection about the distal third metatarsal with cortical bone destruction involving the distal aspect of the third metatarsal Venous doppler left leg: Negative for DVT Plan - Surgery consulted-no surgery required, no debridement or drainage needed. Continue IV antibiotics - Wound care - Iv antibiotics as above - Infectious disease consulted, appreciate recommendations #Peripheral Artery Disease Duplex sonography shows severe peripheral obstructive arterial disease left lower extremity. Diminished distal pulses present on examination. On medication cilostazol 50 mg p.o. twice daily Plan - Continue to monitor - Smoking cessation counseling - Will consider restarting cilostazol, pending med rec #Acute kidney injury (resolving) On admission pt cr 1.8 with baseline 0.9. Likely prerenal secondary to sepsis. Patient recived 2L NS in ED. Renal panel is within normal limit. Plan -Avoid nephrotoxins -Monitor renal panel -Renally dosed medications - Continue to monitor CMP #Non-insulin depended Diabetes Mellitus II # Diabetic neuropathy On admission glucose 256, A1c 9.4. Hx of neuropathy manage with home medication gabapentin, Plan - pending med recc - insulin sliding scale step 1 - started degludec 15 units HS - resumed home gabapentin 300mg PO BID #Bipolar disorder #Major Depressive Disorder #Post-traumatic stress disorder Stable, but irritable and tangential speech. Plan - Resume home lamotrigine 100 mg PO - resumed duloxetine 90mg - Midazolam 2mg IVP PRN - Diazepam 5mg for agitation - Ziprasidone 20 mg twice daily # Hypothyroidism Per chart review pt has history of hypothyroidism managed with home levothyroxine 75 mg p.o. 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 Likely secondary to poor oral intake. - Continue to monitor phosphorus, replenish when necessary Hospital management: Lines: peripheral IV Diet: Dysphagia 1-Pureed GI prophylaxis: pantoprazole DVT prophylaxis: heparin SC Disposition: tele for IV abx and AHRF CODE STATUS: DNR Patient seen and assessed under supervision of attending physician and discussed with senior resident Dr. Mckenna PGY-2 Alfonso Christy, PGY1
[2025-07-11 14:15] LABS: Alanine Aminotransferase 12 U/L (10-49); Albumin, Serum 3.5 gm/dL (3.4-4.8); Albumin/Globulin Ratio 1.5 (1.2-2.2); Alkaline Phosphatase 106 U/L (46-116); Anion Gap 7 (7-16); Aspartate Amino Transferase 25 U/L (0-34); BUN/Creatinine Ratio 22 Ratio (12-20); Bilirubin,Total 0.4 mg/dL (0.3-1.2); Blood Urea Nitrogen 24 mg/dL (9-23); Calcium 8.5 mg/dL (8.3-10.6); Calcium (Corrected) 8.9 mg/dL (8.5-10.1); Carbon Dioxide 24.9 mMol/L (20.0-31.0); Chloride 102 mMol/L (98-107); Creatinine (Component) 1.1 mg/dL (0.6-1.3); Estimated Creatinine Clearance 71.2 mL/min (>60); Globulin 2.4 gm/dL (2.3-3.5); Glucose 172 mg/dL (74-106); Magnesium 1.8 mg/dL (1.6-2.6); Osmolality,Calculated 276 (275-295); Phosphorous 1.4 mg/dL (2.4-5.1); Potassium 3.5 mMol/L (3.4-5.1); Sodium 134 mMol/L (136-145); Total Protein 5.9 gm/dL (5.7-8.2); eGFR > 60 See Note
--- NOTE | 2025-07-11 14:27 | PCS.ST ---
Rounding: Pending ID reccs, will need mental health eval upon medical clearance from primary team
--- NOTE | 2025-07-11 14:45 | ESCONSULT_ITS ---
RE: PROMISE MIKE : 1960 DATE OF CONSULTATION: 07/11/2025 REFERRING PHYSICIAN: Dr. Michel. REASON FOR CONSULTATION: Osteomyelitis of the left foot. HISTORY OF PRESENT ILLNESS: The patient is a 64-year-old diabetic. He had positive blood cultures and cellulitis of his left foot with possible early osteomyelitis by imaging. He has not had any other studies. He is known to have peripheral vascular disease. He is also diabetic with A1c of 9.4 and his creatinine briefly of 1.8 that was elevated, so we have to be careful about the use of vancomycin. Vancomycin is being ordered by pharmacy. Creatinine is down today, so we will see what happens with that alone. i will stop the other antibiotics and await his course. He is diabetic and is known to have peripheral vascular disease. He also has some mental health problems as noted. They seem to be controlled and so he is restrained for his safety. He is on pantoprazole per others. Rationale for that is not clear. It does not appear to be a home med, so we will stop it. PAST SURGICAL HISTORY: Includes prior known peripheral vascular disease. He has had prior amputations of some of the toes as well. ALLERGIES: THERE ARE NO LISTED ALLERGIES. IMMUNIZATIONS: Unavailable. FAMILY HISTORY: Family history and social history are similarly unavailable. The patient is not very forthcoming as a historian. PHYSICAL EXAMINATION: On exam, the patient has a red left foot. It is covered. The right foot appears to be well healed. There are prior amputations of some toes noted, one on each foot. There are great toe on the left foot and the second and first and fourth and fifth toes remain. The third toe is missing. The great toe on the right foot appears to be surgically removed as well that appears to be well healed at this time. ASSESSMENT: 1. Cellulitis of the left foot with bacteremia versus contamination. 2. Diabetes. A1c 9.4. 3. Known peripheral vascular disease. RECOMMENDATIONS: The patient's circulation will impair healing. So a vascular evaluation would be prudent along with IV antibiotics. I am going to give him IV antibiotics for now with vancomycin. We will go ahead and get repeat blood sugars and an echo. He has to wait probably until Wednesday for those to be reasonably finalized in 48 hours. I will see him again on Wednesday as I will not be here on Wednesday. DT: 11:21:37 TT: 11:57:00 Ref: [id number] - TID: [id number] MTDD
[2025-07-11] MEDS: SOD PHOS ADDITIVE 30 MMOL in SODIUM CHLORIDE 0.9% 500 ML 500 ML 62.5 MMOL IV (16:02)
[2025-07-11] MEDS: NAPH,KPH MBDB 1 PACKET (1.5 GM) 2 PACKET PO (16:05)
[2025-07-11] MEDS: DULoxetine HCL 30 MG CAPSULE 90 MG PO (20:47)
[2025-07-11] MEDS: INSULIN DEGLUDEC 5 UNIT/0.05 ML (PER 5 UNITS) 15 UNIT SC (20:48)
[2025-07-12] VITALS (10 sets, daily range): BP systolic 105–138; BP diastolic 62–95; PULSE 74–93; RESP 16–25; TEMP 36.2–36.8; O2SAT 92–99; BMI 31.0
[2025-07-12 06:37] LABS: Basophils # (Auto) 0.1 Thou/mm3 (0.0-0.2); Basophils % (Auto) 0 % (0-2.5); Eosinophils # (Auto) 0.2 Thou/mm3 (0.0-0.5); Eosinophils % (Auto) 1 % (0-10); Hematocrit 29.4 % (41.0-53.0); Hemoglobin 9.6 g/dL (13.5-16.0); Immature Granulocytes Auto 0.31 Thou/mm3 (0.00-0.00); Lymphocytes # (Auto) 1.8 Thou/mm3 (1.0-4.8); Lymphocytes % (Auto) 8 % (10-50); Mean Corpuscular HGB Conc 32.7 g/dl (31.0-37.0); Mean Corpuscular Hemoglobin 28.0 pg (25.0-35.0); Mean Corpuscular Volume 86 fL (80-100); Monocytes # (Auto) 1.3 Thou/mm3 (0.0-0.8); Monocytes % (Auto) 6 % (0-12); Neutrophils # (Auto) 20.3 Thou/mm3 (1.8-7.7); Neutrophils % (Auto) 85 % (37-80); Nucleated Red Blood Cell # 0.05 Thou/mm3 (0.00-0.00); Nucleated Red Blood Cell % 0 /100 WBC (0); Platelet Count 606 Thou/mm3 (140-440); RDW Standard Deviation 48.3 fL (35.1-43.9); Red Blood Count 3.43 Miln/mm3 (4.50-5.90); White Blood Count 24.0 Thou/mm3 (3.8-10.6)
[2025-07-12 07:02] LABS: Sed Rate (ESR) 128 mm/hr (0-20)
[2025-07-12 07:07] LABS: Alanine Aminotransferase 19 U/L (10-49); Albumin, Serum 3.8 gm/dL (3.4-4.8); Albumin/Globulin Ratio 1.5 (1.2-2.2); Alkaline Phosphatase 147 U/L (46-116); Anion Gap 10 (7-16); Aspartate Amino Transferase 40 U/L (0-34); BUN/Creatinine Ratio 20 Ratio (12-20); Bilirubin,Total 0.5 mg/dL (0.3-1.2); Blood Urea Nitrogen 18 mg/dL (9-23); C-Reactive Protein 22.5 mg/dL (0.0-0.9); Calcium 8.7 mg/dL (8.3-10.6); Calcium (Corrected) 8.9 mg/dL (8.5-10.1); Carbon Dioxide 26.1 mMol/L (20.0-31.0); Chloride 104 mMol/L (98-107); Creatinine (Component) 0.9 mg/dL (0.6-1.3); Estimated Creatinine Clearance 87.0 mL/min (>60); Globulin 2.5 gm/dL (2.3-3.5); Glucose 63 mg/dL (74-106); Magnesium 1.7 mg/dL (1.6-2.6); Osmolality,Calculated 279 (275-295); Phosphorous 2.2 mg/dL (2.4-5.1); Potassium 3.4 mMol/L (3.4-5.1); Sodium 140 mMol/L (136-145); Total Protein 6.3 gm/dL (5.7-8.2); eGFR > 60 See Note
[2025-07-12] MEDS: HEPARIN SOD INJ 5000 UNIT/ML VIAL SC ×2 (08:28→20:38)
[2025-07-12] MEDS: DIAZEPAM 5 MG TABLET PO ×2 (08:29→20:36)
[2025-07-12] MEDS: Magnesium Sulfate 4 GM Ivpb 4 GM/50 ML BAG IV (08:29)
[2025-07-12] MEDS: ZIPRASIDONE 20 MG CAPSULE PO ×2 (08:29→20:36)
[2025-07-12] MEDS: GABAPENTIN 300 MG CAPSULE PO ×2 (08:29→20:36)
[2025-07-12] MEDS: NAPH,KPH MBDB 1 PACKET (1.5 GM) 2 PACKET PO (08:32)
[2025-07-12 10:40] LABS: Vancomycin,Trough 12.5 mcg/mL (5.0-10.0)
[2025-07-12] MEDS: VANCOMYCIN/WATER 1GM IVPB 200 ML IV ×2 (11:21→21:18)
[2025-07-12] MEDS: SENNA/DOCUSATE SOD 1 TAB TABLET PO (12:45)
[2025-07-12] MEDS: POLYETHYLENE GLYCOL 17 GM PACKET PO (12:46)
--- NOTE | 2025-07-12 13:32 | ESPR_ITS ---
<Statement entered by Shaneka Michel MD - 07/14/25 07:18> I attest that I was physically present for the evaluation, physical examination, lab and imaging review of the patient with the residents. I discussed the case with the residents and agree with the findings and plans of care as documented below. At bedside patient appears calm but uninterested in comversation. States he wishes to go home. Explained again about jacque for continued IV antibiotics antibiotics, final culture and sensitivity results. Agrees to stay, 1 on 1 sitter at bedside. Grew MSSA in 1 of the bottles and GPC in another. WBC count remains elevated, ESR noted to be worsening and CRP also remains high. Another set of blood culture obtained, Awaiting ECHO results. Shaneka Michel MD <Statement entered by Muna Mckenna MD - 07/13/25 13:27> Pt appears to be more calm and less aggitated today, will continue 1-1 sitter. Pt is eager to home. will cotninue IV antibiotics for now and await final recommendations from GABE doe if pt will need PICC line. Patient was seen and examined by me personally. I have directly supervised and reviewed documentation by the team resident and agree with its findings. ------- Plan of care was discussed with the attending, Dr. Marilu Mckenna, PGY-2 Documentation for date of: 07/12/25 Subjective Subjective Interval history: No acute event overnight. Patient was seen and examined at bedside. Saturating 99% on 6L nasal cannula.Vitals are within normal limits. Patient has no active complain. Patient has a sad affect. AM labs reviews. WBC 24, platelets 606, ESR 128. Repleted Mg with magnesium sulfate 4gm and And Phos with 2 packet of Neuta- phos. Initiated Senna and MiraLAX for constipation secondary to hard stool. Blood culture grew Staphylococcus aureus in one of the bottles and Gram positive cocci in another. Pending echo to rule out cardiac vegetations. Exam Vital Signs Temp Pulse Resp BP Pulse Ox O2 Del Method O2 Flow Rate 97.2 F 74 23 H 134/86 H 99 Nasal Cannula 6 07/12/25 12:00 07/12/25 12:07/12/25 12:07/12/25 12:07/12/25 12:00 07/12/25 12:00 07/12/25 12:00 Narrative Exam General: Alert, no acute distress. Skin: Warm, dry, intact. Head: Normocephalic, atraumatic. Eye: Normal conjunctiva, PERRL. Throat: Oral mucosa moist. No obvious lesions in oropharynx. Cardiovascular: Regular rate and rhythm, no murmur, +S1/S2. Respiratory: Lungs are clear to auscultation, respirations unlabored, bibasilar crackles, no wheezing. Gastrointestinal: Soft, nontender, distended. No guarding or rebound tenderness. Extremities: No edema, no cyanosis, no clubbing. L foot plantar wound at 2nd, 3rd distal metatarsal head, nontender. 4th toe amputation. Neuro: No focal deficits observed. Conversant, moving all extremities. No overt cerebellar signs/incoordination. Psychiatric: Cooperative, sad affect. Objective Labs 07/12/25 06:19 07/12/25 06:19 Labs: Laboratory Results - last 24 hr 07/11/25 07/12/25 07/12/25 13:50 06:19 09:35 WBC 23.8 H 24.0 H RBC 3.26 L 3.43 L Hgb 9.1 L 9.6 L Hct 27.5 L 29.4 L MCV 84 86 MCH 27.9 28.0 MCHC 33.1 32.7 RDW Std Deviation 47.2 H 48.3 H Plt Count 492 H D 606 H D Neut % (Auto) 89 H 85 H Lymph % (Auto) 5 L 8 L Bl[place] % (Auto) 4 6 Eos % (Auto) 0 1 Baso % (Auto) 0 0 Neut # (Auto) 21.3 H 20.3 H Lymph # (Auto) 1.2 1.8 Bladen # (Auto) 1.0 H 1.3 H Eos # (Auto) 0.1 0.2 Baso # (Auto) 0.1 0.1 Immature Gran # (Auto) 0.22 H 0.31 H Absolute Nucleated RBC 0.03 H 0.05 H Immature Gran % 1 H 1 H Nucleated RBC % 0 0 ESR 128 H Sodium 134 L 140 Potassium 3.5 3.4 Chloride 102 104 Carbon Dioxide 24.9 26.1 Anion Gap 7 10 BUN 24 H 18 Creatinine 1.1 0.9 Estim Creat Clear Calc 71.2 87.0 eGFR > 60 > 60 BUN/Creatinine Ratio 22 H 20 Glucose 172 H D 63 L D Calculated Osmolality 276 279 Calcium 8.5 8.7 Corrected Calcium 8.9 8.9 Phosphorus 1.4 L 2.2 L Magnesium 1.8 1.7 Total Bilirubin 0.4 0.5 AST 25 40 H ALT 12 19 Alkaline Phosphatase 106 D 147 H D C-Reactive Prot, Quant 22.5 H Total Protein 5.9 6.3 Albumin 3.5 3.8 Globulin 2.4 2.5 Albumin/Globulin Ratio 1.5 1.5 Vancomycin Trough 12.5 H ABG Interpretation ABG results: 07/09/25 22:40 ABG pH 7.35 ABG pCO2 46 ABG pO2 82 L ABG HCO3 25 ABG O2 Saturation 96 ABG Base Excess -1 Quality Measures Quality Measures sepsis Current suspected stage: ruled out Possible source: pulmonary, skin/soft tissue and wound Blood cultures ordered: yes Antibiotic ordered: Yes Assessment & Plan Assessment Current Active Medications: Generic Name Dose Route Start Last Admin Trade Name Freq PRN Reason Stop Dose Admin Acetaminophen 975 mg 07/09/25 21:05 07/09/25 21:27 Acetaminophen Supp 650 Mg Supp [place] 08/08/25 21:04 975 mg Q8HR PRN Administration Fever > 100.4 Protocol Acetaminophen 650 mg 07/10/25 01:31 07/10/25 20:16 Acetaminophen 325 Mg Tablet PO 08/09/25 01:30 650 mg Q6H PRN Administration Fever >100.4 or pain 1-3 Protocol Albuterol/Ipratropium 3 ml 07/11/25 07:51 Albuterol/Ipratropium (Duoneb) Rt Anya 3 Ml Nebu INH 08/10/25 07:50 Q2HR PRN SHORTNESS OF BREATH OR WHEEZE Dextrose 25 ml 07/10/25 01:36 Dextrose 50%-Water Inj 50 Ml Syringe IV 08/09/25 01:35 Q15MIN PRN BG 50-70 responsive npo pt Dextrose 50 ml 07/10/25 01:36 Dextrose 50%-Water Inj 50 Ml Syringe IV 08/09/25 01:35 Q15MIN PRN BG <50 OR BG <70 & pt unresponsive Diazepam 5 mg 07/10/25 13:30 07/12/25 08:29 Diazepam 5 Mg Tablet PO 07/15/25 13:29 5 mg BID RAFAEL Administration Duloxetine HCl 90 mg 07/10/25 21:00 07/11/25 20:47 Duloxetine Hcl 30 Mg Capsule PO 08/09/25 20:59 90 mg HS RAFAEL Administration Gabapentin 300 mg 07/10/25 21:00 07/12/25 08:29 Gabapentin 300 Mg Capsule PO 08/09/25 20:59 300 mg BID RAFAEL Administration Glucagon 1 mg 07/10/25 01:36 Glucagon Inj 1 Mg Vial IM Q15MIN PRN BG <70, and no IV access Heparin Sodium (Porcine) 5,000 unit 07/10/25 09:00 07/12/25 08:28 Heparin Sod Inj 5000 Unit/Ml Vial SC 07/24/25 08:59 5,000 unit Q12HR RAFAEL Administration Vancomycin HCl 200 mls @ 120 mls/hr 07/11/25 10:00 07/12/25 11:21 Vancomycin/Water 1gm Ivpb IV 07/18/25 09:59 120 mls/hr Q12H RAFAEL Administration Protocol Insulin Degludec 15 unit 07/10/25 21:00 07/11/25 20:48 Insulin Degludec 5 Unit/0.05 Ml (Per 5 Units) SC 08/09/25 20:59 15 unit HS RAFAEL Administration Insulin Human Lispro 0 unit 07/11/25 17:00 07/12/25 11:36 Insulin Lispro (Admelog) 1 Unit/0.01 Ml Unit SC 08/10/25 16:59 Not Given AC [facility] Protocol Lamotrigine 100 mg 07/10/25 11:00 07/12/25 08:29 Lamotrigine 100 Mg Tablet PO 08/09/25 10:59 100 mg QDAY RAFAEL Administration Midazolam HCl 2 mg 07/10/25 15:19 Midazolam Inj 1 Mg/Ml Vial 2 Ml IVP X1 PRN Severe Agitation Pharmacy Consult 1 each 07/10/25 09:00 Vancomycin Pharmacy To Dose 1 Each Each IV 08/09/25 08:59 QDAY PRN CONSULT Ziprasidone 20 mg 07/11/25 11:15 07/12/25 08:29 Ziprasidone 20 Mg Capsule PO 08/10/25 11:14 20 mg BID RAFAEL Administration Plan 64M with PMH DM2, PAD s/p 2 toes digits amputation splenectomy, hypothyroidism, HTN, MDD, Bipolar disorder, PTSD, presenting to ED with worsening left foot pain and shortness of breath. Admitted for acute hypoxic respiratory failure and osteomyelitis evaluation and management. #Sepsis 2/2 #MSSA bacteremia #Acute hypoxic respiratory failure 2/2 #Community acquired Pneumonia On admission pt was febrile, tachycardic 103.5, tachypneic 127, leukocytosis, lactate 3. Source likely multifactorial (bilateral pneumonia + diabetic neuropathy and hx of osteomyelitis) Hypoxia 82% RA, improved with O2 CXR: significant diffuse bilateral pneumonia qSOFA 2 (RR>22, hypoxia) Blood culture grew Staphylococcus aureus in 1/2 bottle Blood culture grew Gram positive cocci in 2/2 bottle Plan - Continue Vancomysin (07/10- - Blood culture 07/09 collected, preliminary results show gram positive cocci from both bottles - Repeat blood cultures drawn 07/12, pending read - Continue to monitor mentation - Monitor for fever and leukocytosis, if worsen, change antibiotics regimen tomorrow - Echocardiogram ordered to rule out vegetations #Osteomyelitis of the third metatarsal Osteomyelitis on left foot, amputation of fourth toe, there is an open wound on the plantar area corresponding to the third toe. On examination there is a left foot nonhealing wound and redness worsening over the past few days. Foot X-Ray:Cortical bone erosions in the amputated 3rd metatarsal, osteomyelitis distal 3rd metatarsal. Foot MRI: amputations distal 3rd metatarsal, proximal 4th digit, Soft tissue infection about the distal third metatarsal with cortical bone destruction involving the distal aspect of the third metatarsal Venous doppler left leg: Negative for DVT Pt will likely need PICC lines, final decision pending based in new blood culture results. Plan - Surgery consulted-no surgery required, no debridement or drainage needed. Continue IV antibiotics - Wound care - Iv antibiotics as above - Infectious disease consulted, appreciate recommendations- repeat blood culture ordered #Peripheral Artery Disease Duplex sonography shows severe peripheral obstructive arterial disease left lower extremity. Diminished distal pulses present on examination. On medication cilostazol 50 mg p.o. twice daily Plan - Continue to monitor - Smoking cessation counseling - Will consider restarting cilostazol, pending med rec #Acute kidney injury (resolving) On admission pt cr 1.8 with baseline 0.9. Likely prerenal secondary to sepsis. Patient recived 2L NS in ED. Renal panel is within normal limit. Plan -Avoid nephrotoxins -Monitor renal panel -Renally dosed medications - Continue to monitor CMP #Non-insulin depended Diabetes Mellitus II # Diabetic neuropathy On admission glucose 256, A1c 9.4. Hx of neuropathy manage with home medication gabapentin, Plan - pending med recc - insulin sliding scale step 1 - continue degludec 15 units HS - continue home gabapentin 300mg PO BID #Bipolar disorder #Major Depressive Disorder #Post-traumatic stress disorder Stable, but irritable and tangential speech. Plan - lamotrigine 100 mg PO - duloxetine 90mg - Midazolam 2mg IVP PRN - Diazepam 5mg for agitation - Ziprasidone 20 mg twice daily # Hypothyroidism Per chart review pt has history of hypothyroidism managed with home levothyroxine 75 mg p.o. 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 Likely secondary to poor oral intake. - Continue to monitor phosphorus, replenish when necessary Hospital management: Lines: peripheral IV Diet: Dysphagia 1-Pureed GI prophylaxis: pantoprazole DVT prophylaxis: heparin SC Disposition: tele for IV abx and AHRF CODE STATUS: DNR Patient seen and assessed under supervision of attending physician and discussed with senior resident Dr. Mckenna PGY-2 Camryn Baez PGY1 Internal Medicine
--- NOTE | 2025-07-12 14:55 | PC.SS ---
Rounding: Pending ID reccs on Monday 07/16, pending cultures, poss PICCLINE, Pending ECHO. Will need MH eval upon medical clearance.
[2025-07-12] MEDS: INSULIN LISPRO (AdmeLOG) 1 UNIT/0.01 ML UNIT SC (16:28)
[2025-07-12] MEDS: DULoxetine HCL 30 MG CAPSULE 90 MG PO (20:37)
[2025-07-12] MEDS: INSULIN DEGLUDEC 5 UNIT/0.05 ML (PER 5 UNITS) 15 UNIT SC (20:41)
[2025-07-13] VITALS (10 sets, daily range): BP systolic 126–159; BP diastolic 62–91; PULSE 66–91; RESP 15–20; TEMP 36.3–36.9; O2SAT 91–99; BMI 31.4; BMI 32.0
[2025-07-13 06:27] LABS: Basophils # (Auto) 0.1 Thou/mm3 (0.0-0.2); Basophils % (Auto) 0 % (0-2.5); Eosinophils # (Auto) 0.2 Thou/mm3 (0.0-0.5); Eosinophils % (Auto) 1 % (0-10); Hematocrit 28.2 % (41.0-53.0); Hemoglobin 9.3 g/dL (13.5-16.0); Immature Granulocytes Auto 0.64 Thou/mm3 (0.00-0.00); Lymphocytes # (Auto) 2.1 Thou/mm3 (1.0-4.8); Lymphocytes % (Auto) 11 % (10-50); Mean Corpuscular HGB Conc 33.0 g/dl (31.0-37.0); Mean Corpuscular Hemoglobin 28.4 pg (25.0-35.0); Mean Corpuscular Volume 86 fL (80-100); Monocytes # (Auto) 1.8 Thou/mm3 (0.0-0.8); Monocytes % (Auto) 9 % (0-12); Neutrophils # (Auto) 14.9 Thou/mm3 (1.8-7.7); Neutrophils % (Auto) 76 % (37-80); Nucleated Red Blood Cell # 0.06 Thou/mm3 (0.00-0.00); Nucleated Red Blood Cell % 0 /100 WBC (0); Platelet Count 597 Thou/mm3 (140-440); RDW Standard Deviation 48.8 fL (35.1-43.9); Red Blood Count 3.28 Miln/mm3 (4.50-5.90); White Blood Count 19.6 Thou/mm3 (3.8-10.6)
[2025-07-13 06:54] LABS: Alanine Aminotransferase 31 U/L (10-49); Albumin, Serum 3.6 gm/dL (3.4-4.8); Albumin/Globulin Ratio 1.4 (1.2-2.2); Alkaline Phosphatase 251 U/L (46-116); Anion Gap 11 (7-16); Aspartate Amino Transferase 68 U/L (0-34); BUN/Creatinine Ratio 17 Ratio (12-20); Bilirubin,Total 0.3 mg/dL (0.3-1.2); Blood Urea Nitrogen 15 mg/dL (9-23); Calcium 8.7 mg/dL (8.3-10.6); Calcium (Corrected) 9.0 mg/dL (8.5-10.1); Carbon Dioxide 26.2 mMol/L (20.0-31.0); Chloride 102 mMol/L (98-107); Creatinine (Component) 0.9 mg/dL (0.6-1.3); Estimated Creatinine Clearance 87.5 mL/min (>60); Globulin 2.6 gm/dL (2.3-3.5); Glucose 186 mg/dL (74-106); Magnesium 1.9 mg/dL (1.6-2.6); Osmolality,Calculated 283 (275-295); Phosphorous 1.9 mg/dL (2.4-5.1); Potassium 3.6 mMol/L (3.4-5.1); Sodium 139 mMol/L (136-145); Total Protein 6.2 gm/dL (5.7-8.2); eGFR > 60 See Note
[2025-07-13] MEDS: HEPARIN SOD INJ 5000 UNIT/ML VIAL SC ×2 (07:58→20:21)
[2025-07-13] MEDS: POLYETHYLENE GLYCOL 17 GM PACKET PO (08:00)
[2025-07-13] MEDS: GABAPENTIN 300 MG CAPSULE PO ×2 (08:00→20:21)
[2025-07-13] MEDS: DIAZEPAM 5 MG TABLET PO ×2 (08:00→20:21)
[2025-07-13] MEDS: ZIPRASIDONE 20 MG CAPSULE PO ×2 (08:00→20:21)
--- NOTE | 2025-07-13 09:37 | PC.SS ---
Follow up note: 1 on 1 sitter. On IV antibiotic. Dr. Chin's recommendations pending. Will require crises evaluation upon d.c.
[2025-07-13] MEDS: NAPH,KPH MBDB 1 PACKET (1.5 GM) PO (10:00)
[2025-07-13] MEDS: SOD PHOS ADDITIVE 15 MMOL in SODIUM CHLORIDE 0.9% 250 ML 250 ML 62.5 MMOL IV (10:00)
[2025-07-13] MEDS: VANCOMYCIN/WATER 1GM IVPB 200 ML IV ×2 (10:00→21:26)
--- NOTE | 2025-07-13 10:21 | ESPR_ITS ---
<Statement entered by Henry Hurtado MD - 07/14/25 17:03> Patient was seen and examined at bedside. I agree on the assessment and plan on this note as documented by resident Camryn Baez MD PGY1. 64-year-old male with past medical history as below admitted for acute hypoxic respiratory failure and osteomyelitis, will continue IV antibiotics for osteomyelitis patient will likely need a PICC line prior to discharge to continue treatment for osteomyelitis, will follow-up with infectious disease specialist in a.m. Patient continues to be on suicide precautions, will need a psych eval prior to discharge. Will continue antibiotics for now, patient also has MSSA bacteremia repeat blood cultures have been negative till now. Continue with wound care, disposition Med Tele. Case discussed with attending Dr. Janis Cornelius MD PGY-2 Documentation for date of: 07/13/25 Subjective Subjective Interval history: No acute events overnight. Patient seen and examined at bedside with 1-1 sitter. Patient still eager to go home. He report shortness of breath, but denies chest pain, weakness, abdominal pain and bodyaches. Vital are within the normal. AM labs reviewed. Leukocytosis improving with WBC 19.6. Phos 1.9 - repleted with Neutraphos and Naphos Will continue IV antibiotics for now and awaits final recommendations form ID for possible PICC line. Blood culture sent out on 07/12/25 - no growth after 24 hrs Pending ECHO Started Losartan 25mg PO for blood pressure control Exam Vital Signs Temp Pulse Resp BP Pulse Ox O2 Del Method O2 Flow Rate 97.4 F 77 19 139/64 H 98 Nasal Cannula 6 07/13/25 08:00 07/13/25 08:00 07/13/25 08:00 07/13/25 08:00 07/13/25 08:00 07/13/25 08:00 07/13/25 08:00 Narrative Exam General: Alert, no acute distress. Skin: Warm, dry, intact. Head: Normocephalic, atraumatic. Eye: Normal conjunctiva, PERRL. Throat: Oral mucosa moist. No obvious lesions in oropharynx. Cardiovascular: Regular rate and rhythm, no murmur, +S1/S2. Respiratory: Lungs are clear to auscultation, respirations unlabored, bibasilar crackles, no wheezing. Gastrointestinal: Soft, nontender, non distended. No guarding or rebound tenderness. Extremities: No edema, no cyanosis, no clubbing. L foot plantar wound at 2nd, 3rd distal metatarsal head, nontender. 4th toe amputation. Neuro: No focal deficits observed. Conversant, moving all extremities. No overt cerebellar signs/incoordination. Psychiatric: Cooperative, sad affect. Objective Labs 07/13/25 04:07 07/13/25 04:07 Labs: Laboratory Results - last 24 hr 07/12/25 07/13/25 09:35 04:07 WBC 19.6 H RBC 3.28 L Hgb 9.3 L Hct 28.2 L MCV 86 MCH 28.4 MCHC 33.0 RDW Std Deviation 48.8 H Plt Count 597 H Neut % (Auto) 76 Lymph % (Auto) 11 [place] % (Auto) 9 Eos % (Auto) 1 Baso % (Auto) 0 Neut # (Auto) 14.9 H Lymph # (Auto) 2.1 [place] # (Auto) 1.8 H Eos # (Auto) 0.2 Baso # (Auto) 0.1 Immature Gran # (Auto) 0.64 H Absolute Nucleated RBC 0.06 H Immature Gran % 3 H Nucleated RBC % 0 Sodium 139 Potassium 3.6 Chloride 102 Carbon Dioxide 26.2 Anion Gap 11 BUN 15 Creatinine 0.9 Estim Creat Clear Calc 87.5 eGFR > 60 BUN/Creatinine Ratio 17 Glucose 186 H D Calculated Osmolality 283 Calcium 8.7 Corrected Calcium 9.0 Phosphorus 1.9 L Magnesium 1.9 Total Bilirubin 0.3 AST 68 H ALT 31 Alkaline Phosphatase 251 H D Total Protein 6.2 Albumin 3.6 Globulin 2.6 Albumin/Globulin Ratio 1.4 Vancomycin Trough 12.5 H ABG Interpretation ABG results: 07/09/25 22:40 ABG pH 7.35 ABG pCO2 46 ABG pO2 82 L ABG HCO3 25 ABG O2 Saturation 96 ABG Base Excess -1 Quality Measures Quality Measures sepsis Current suspected stage: ruled out Possible source: pulmonary, skin/soft tissue and wound Blood cultures ordered: yes Antibiotic ordered: Yes Assessment & Plan Assessment Current Active Medications: Generic Name Dose Route Start Last Admin Trade Name Freq PRN Reason Stop Dose Admin Acetaminophen 975 mg 07/09/25 21:05 07/09/25 21:27 Acetaminophen Supp 650 Mg Supp LA 08/08/25 21:04 975 mg Q8HR PRN Administration Fever > 100.4 Protocol Acetaminophen 650 mg 07/10/25 01:31 07/10/25 20:16 Acetaminophen 325 Mg Tablet PO 08/09/25 01:30 650 mg Q6H PRN Administration Fever >100.4 or pain 1-3 Protocol Albuterol/Ipratropium 3 ml 07/11/25 07:51 Albuterol/Ipratropium (Duoneb) Rt Anya 3 Ml Nebu INH 08/10/25 07:50 Q2HR PRN SHORTNESS OF BREATH OR WHEEZE Dextrose 25 ml 07/10/25 01:36 Dextrose 50%-Water Inj 50 Ml Syringe IV 08/09/25 01:35 Q15MIN PRN BG 50-70 responsive npo pt Dextrose 50 ml 07/10/25 01:36 Dextrose 50%-Water Inj 50 Ml Syringe IV 08/09/25 01:35 Q15MIN PRN BG <50 OR BG <70 & pt unresponsive Diazepam 5 mg 07/10/25 13:30 07/13/25 08:00 Diazepam 5 Mg Tablet PO 07/15/25 13:29 5 mg BID RAFAEL Administration Duloxetine HCl 90 mg 07/10/25 21:00 07/12/25 20:37 Duloxetine Hcl 30 Mg Capsule PO 08/09/25 20:59 90 mg HS RAFAEL Administration Gabapentin 300 mg 07/10/25 21:00 07/13/25 08:00 Gabapentin 300 Mg Capsule PO 08/09/25 20:59 300 mg BID RAFAEL Administration Glucagon 1 mg 07/10/25 01:36 Glucagon Inj 1 Mg Vial IM Q15MIN PRN BG <70, and no IV access Heparin Sodium (Porcine) 5,000 unit 07/10/25 09:00 07/13/25 07:58 Heparin Sod Inj 5000 Unit/Ml Vial SC 07/24/25 08:59 5,000 unit Q12HR RAFAEL Administration Vancomycin HCl 200 mls @ 120 mls/hr 07/11/25 10:00 07/13/25 10:00 Vancomycin/Water 1gm Ivpb IV 07/18/25 09:59 120 mls/hr Q12H RAFAEL Administration Protocol Sodium Phosphate 15 mmol/ 255 mls @ 62.5 mls/hr 07/13/25 08:41 07/13/25 10:00 Sodium Chloride IV 07/13/25 12:45 62.5 mls/hr X1 ONE Administration Insulin Degludec 15 unit 07/10/25 21:00 07/12/25 20:41 Insulin Degludec 5 Unit/0.05 Ml (Per 5 Units) SC 08/09/25 20:59 15 unit HS RAFAEL Administration Insulin Human Lispro 0 unit 07/11/25 17:00 07/13/25 07:47 Insulin Lispro (Admelog) 1 Unit/0.01 Ml Unit SC 08/10/25 16:59 Not Given AC RAFAEL Protocol Lamotrigine 100 mg 07/10/25 11:00 07/13/25 08:00 Lamotrigine 100 Mg Tablet PO 08/09/25 10:59 100 mg QDAY RAFAEL Administration Midazolam HCl 2 mg 07/10/25 15:19 Midazolam Inj 1 Mg/Ml Vial 2 Ml IVP X1 PRN Severe Agitation Pharmacy Consult 1 each 07/10/25 09:00 Vancomycin Pharmacy To Dose 1 Each Each IV 08/09/25 08:59 QDAY PRN CONSULT Polyethylene Glycol 17 gm 07/13/25 09:00 07/13/25 08:00 Polyethylene Glycol 17 Gm Packet PO 08/12/25 08:59 17 gm QDAY ARFAEL Administration Sennosides 1 tab 07/13/25 07:30 Senna/Docusate Sod 1 Tab Tablet PO 08/12/25 07:29 QDAY PRN CONSTIPATION Protocol Ziprasidone 20 mg 07/11/25 11:15 07/13/25 08:00 Ziprasidone 20 Mg Capsule PO 08/10/25 11:14 20 mg BID RAFAEL Administration Plan 64M with PMH DM2, PAD s/p 2 toes digits amputation splenectomy, hypothyroidism, HTN, MDD, Bipolar disorder, PTSD, presenting to ED with worsening left foot pain and shortness of breath. Admitted for acute hypoxic respiratory failure and osteomyelitis evaluation and management. #Sepsis 2/2 #MSSA bacteremia #Acute hypoxic respiratory failure 2/2 #Community acquired Pneumonia On admission pt was febrile, tachycardic 103.5, tachypneic 127, leukocytosis, lactate 3. Source likely multifactorial (bilateral pneumonia + diabetic neuropathy and hx of osteomyelitis) Hypoxia 82% RA, improved with O2 CXR: significant diffuse bilateral pneumonia qSOFA 2 (RR>22, hypoxia) Blood culture grew Staphylococcus aureus in 1/2 bottle Blood culture grew Gram positive cocci in 2/2 bottle Plan - Continue Vancomysin (07/10- - Blood culture 07/09 collected, preliminary results show gram positive cocci from both bottles - Repeat blood cultures drawn 07/12, pending read - Continue to monitor mentation - Monitor for fever and leukocytosis - Echocardiogram ordered to rule out vegetations- pending #Osteomyelitis of the third metatarsal Osteomyelitis on left foot, amputation of fourth toe, there is an open wound on the plantar area corresponding to the third toe. On examination there is a left foot nonhealing wound and redness worsening over the past few days. Foot X-Ray:Cortical bone erosions in the amputated 3rd metatarsal, osteomyelitis distal 3rd metatarsal. Foot MRI: amputations distal 3rd metatarsal, proximal 4th digit, Soft tissue infection about the distal third metatarsal with cortical bone destruction involving the distal aspect of the third metatarsal Venous doppler left leg: Negative for DVT Pt will likely need PICC lines, final decision pending based in new blood culture results. Plan - Surgery consulted-no surgery required, no debridement or drainage needed. Continue IV antibiotics - Wound care - Iv antibiotics as above - Infectious disease consulted, appreciate recommendations- repeat blood culture ordered #Peripheral Artery Disease Duplex sonography shows severe peripheral obstructive arterial disease left lower extremity. Diminished distal pulses present on examination. On medication cilostazol 50 mg p.o. twice daily Plan - Continue to monitor - Smoking cessation counseling - Will consider restarting cilostazol, pending med rec #Acute kidney injury (resolved) On admission pt cr 1.8 with baseline 0.9. Likely prerenal secondary to sepsis. Patient recieved 2L NS in ED. Renal panel is within normal limit. Plan -Avoid nephrotoxins -Monitor renal panel -Renally dosed medications - Continue to monitor CMP #Non-insulin depended Diabetes Mellitus II # Diabetic neuropathy On admission glucose 256, A1c 9.4. Hx of neuropathy manage with home medication gabapentin, Plan - insulin sliding scale step 1 - continue degludec 15 units HS - continue home gabapentin 300mg PO BID #Bipolar disorder #Major Depressive Disorder #Post-traumatic stress disorder Stable, but irritable and tangential speech. Plan - lamotrigine 100 mg PO - duloxetine 90mg - Midazolam 2mg IVP PRN - Diazepam 5mg for agitation - Ziprasidone 20 mg twice daily # Hypothyroidism Per chart review pt has history of hypothyroidism managed with home levothyroxine 75 mg p.o. 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 Likely secondary to poor oral intake. - Continue to monitor phosphorus, replenish when necessary Hospital management: Lines: peripheral IV Diet: Dysphagia 1-Pureed GI prophylaxis: pantoprazole DVT prophylaxis: heparin SC Disposition: tele for IV abx and AHRF CODE STATUS: DNR Patient seen and assessed under supervision of attending physician and discussed with senior resident Dr. Hurtado PGY-2 Camryn Baez PGY1 Internal Medicine Attending Provider Attestation/Addendum I, Janis Jama, , attest that I was physically present for the rojo portions of the service and evaluated the patient with the resident and I reviewed and discussed the case with the resident and agree with the resident's findings and plans of care as documented above Patient seen and eval this a.m. He is currently requiring a one-to-one sitter as patient has made comments about being suicidal. Upon further questioning right regarding SI or HI, patient states that he is a little less today . Patient is anxious to go home. He had called his to pick him up. However, explained to patient that he will need IV antibiotics and following up blood cultures before placing PICC line so that he can go home with IV antibiotics. Patient is agreeable, but states that this needs to be done today and so that he can go home to be with his cat. states that the patient has had history of several attempts of suicide including cutting himself. Home psych meds have been continued. Patient will need psych eval upon discharge. Will continue to follow-up with blood cultures as the first 2 out of 2 blood cultures obtained on admission were positive for MSSA. No surgical intervention required at this time. Cellulitis over the right dorsum of the foot is improving with mild edema and erythema. There is an open wound on the plantar surface of the third metatarsal. No purulent drainage noted. Will continue with wound care as needed.
[2025-07-13] MEDS: INSULIN LISPRO (AdmeLOG) 1 UNIT/0.01 ML UNIT SC (11:50)
[2025-07-13] MEDS: LOSARTAN POTASSIUM 25 MG TABLET PO (12:41)
[2025-07-13] MEDS: ACETAMINOPHEN 325 MG TABLET 650 MG PO (14:00)
[2025-07-13] MEDS: DULoxetine HCL 30 MG CAPSULE 90 MG PO (20:21)
[2025-07-13] MEDS: INSULIN DEGLUDEC 5 UNIT/0.05 ML (PER 5 UNITS) 15 UNIT SC (20:21)
--- NOTE | 2025-07-13 20:47 | PC.NURSE ---
Pt staets he wants to go home, MD Gong made aware that pts wanting to go home. He said he will come and talk to the pts.
--- NOTE | 2025-07-13 20:50 | PC.NURSE ---
MD Gong came and talked to the pts, asking why he wants to go home AMA, per pts he's not getting better, he's been here a long time and his head is hurting, that he wants to go home and if he need to come back here he will. I explained also that he is on oxygen and if his oxygen is off his oxygen level drops to 80%. Pt said i dont use exygen my whole life, and I am okay without it . MD Gong made pt aware that he needs the IV antibiotic for long time.
--- NOTE | 2025-07-13 21:00 | PC.NURSE ---
MD Nance came and he said pt cannot go AMA DT pt is on hold 5150 and need to be cleared by mental health before pts can go home.
[2025-07-13] MEDS: KETOROLAC INJ 30 MG/ML VIAL IVP (21:25)
--- NOTE | 2025-07-13 21:29 | PD.RESEVENT ---
Documentation for date of: 07/13/25 Event Note Event Note: At approximately 20:50 PM on 07/13/25, this check writer salesperson was notified that patient wished to leave AMA. Upon interview, patient stated that he wished to leave AMA because he had a 10/10 headache and believed that the hospital was not doing anything further to help him. He was informed about the importance of remaining inpatient so he could continue receiving IV antibiotics for his osteomyelitis but patient said he did not care if his decision to leave AMA would lead to amputation or his eventual and that he could always return to the ED if he felt worse. The patient was very belligerent, on the phone with his yelling that she needed to come pick him up. We were informed that the patient has had episodes of suicidal ideations in the past and possible multiple attempts. As such, we do not feel the patient is safe to leave AGAINST MEDICAL ADVICE and the patient will be placed on a medical hold at this time, we were informed that the patient is not technically on a 5150 hold however this will have to be evaluated tomorrow by the crisis team and possibly need the emergency room doctor to place to hold. This was explained to the patient, we will try to make him more comfortable treating him for headache and continue to monitor closely. For his headache, he was given IV Toradol 30 mg x1. Amos Gong, DO Internal Medicine, PGY-1
[2025-07-14] VITALS (12 sets, daily range): BP systolic 136–159; BP diastolic 73–82; PULSE 67–94; RESP 18–23; TEMP 36.1–36.8; O2SAT 2–96; BMI 32.0
[2025-07-14] MEDS: LOSARTAN POTASSIUM 25 MG TABLET PO (09:31)
[2025-07-14] MEDS: ZIPRASIDONE 20 MG CAPSULE PO ×2 (09:31→21:01)
[2025-07-14] MEDS: DIAZEPAM 5 MG TABLET PO ×2 (09:31→20:41)
[2025-07-14] MEDS: GABAPENTIN 300 MG CAPSULE PO ×2 (09:31→20:41)
[2025-07-14] MEDS: VANCOMYCIN/WATER 1GM IVPB 200 ML IV (09:32)
[2025-07-14] MEDS: NAPH,KPH MBDB 1 PACKET (1.5 GM) PO ×2 (09:32→20:41)
[2025-07-14] MEDS: POLYETHYLENE GLYCOL 17 GM PACKET PO (09:32)
[2025-07-14] MEDS: HEPARIN SOD INJ 5000 UNIT/ML VIAL SC ×2 (09:32→20:43)
[2025-07-14] MEDS: cefTRIAXone/D5w 2gm 2 GM/50 ML BAG IV (10:03)
[2025-07-14] MEDS: SOD PHOS ADDITIVE 15 MMOL in SODIUM CHLORIDE 0.9% 250 ML 250 ML 62.5 MMOL IV (10:47)
--- NOTE | 2025-07-14 10:54 | ESPR_ITS ---
<Statement entered by Henry Hurtado MD - 07/14/25 17:26> Patient was seen and examined at bedside. I agree on the assessment and plan on this note as documented by resident Camryn Baez MD PGY1. 64-year-old male with past medical history as below admitted for sepsis secondary to osteomyelitis, currently on IV antibiotics will likely need a PICC line which will be placed on Wednesday for long-term IV antibiotics, will be seen by infectious disease specialist on Wednesday. Patient continues to be on suicidal precaution, agitated at times exhibiting rude behavior, will continue ziprasidone, tolerating well. Patient does follow with psychiatry outpatient, will continue to monitor. Case discussed with attending Dr. Janis Cornelius MD PGY-2 Documentation for date of: 07/14/25 Subjective Subjective Interval history: Patient was agitated, had a fight with his . Wanted to leave AMA because he because he had a very bad headache and believes the hospital was not doing anything to help him. Night team gave him 30 mg IV Toradol for pain. Patient was seen at bedside for assessment. He was uncooperative and refused examination. When engaged, he became verbally aggressive and directed profane language towards me. I gave him an update about his medication regimen and care plan. However, he declined further interaction and requested that he leave the room. Patient saturating 90% on room air. He denies use of nasal cannula. AM labs reviewed. Significant for improved WBC 19.6. Phos 1.9 and repleted. Echo done on 07/11 continue showed EF of 45 -50%. Discontinue vancomycin (07/10-07/13) Started patient ceftriaxone 2 mg and doxycycline 100 mg BID Exam Vital Signs Temp Pulse Resp BP Pulse Ox O2 Del Method O2 Flow Rate 98.3 F 84 18 145/79 H 96 Nasal Cannula 4 07/14/25 07:27 07/14/25 09:31 07/14/25 09:29 07/14/25 09:31 07/14/25 09:29 07/14/25 07:27 07/14/25 09:29 Narrative Exam General: Alert, no acute distress. Skin: Warm, dry, intact. Head: Normocephalic, atraumatic. Eye: Normal conjunctiva, PERRL. Throat: Dry mucosa moist. No obvious lesions in oropharynx. Cardiovascular: Regular rate and rhythm, no murmur, +S1/S2. Respiratory: Lungs are clear to auscultation, respirations unlabored, bibasilar crackles, no wheezing. Gastrointestinal: Soft, nontender, non distended. No guarding or rebound tenderness. Extremities: No edema, no cyanosis, no clubbing. L foot plantar wound at 2nd, 3rd distal metatarsal head, nontender. 4th toe amputation. Neuro: No focal deficits observed. Conversant, moving all extremities. No overt cerebellar signs/incoordination. Psychiatric: uncooperative, sad affect. Objective Labs 07/15/25 04:27 07/15/25 04:27 ABG Interpretation ABG results: 07/09/25 22:40 ABG pH 7.35 ABG pCO2 46 ABG pO2 82 L ABG HCO3 25 ABG O2 Saturation 96 ABG Base Excess -1 Quality Measures Quality Measures sepsis Current suspected stage: ruled out Possible source: pulmonary, skin/soft tissue and wound Blood cultures ordered: yes Antibiotic ordered: Yes Assessment & Plan Assessment Current Active Medications: Generic Name Dose Route Start Last Admin Trade Name Freq PRN Reason Stop Dose Admin Acetaminophen 650 mg 07/10/25 01:31 07/13/25 14:00 Acetaminophen 325 Mg Tablet PO 08/09/25 01:30 650 mg Q6H PRN Administration Fever >100.4 or pain 1-3 Protocol Albuterol/Ipratropium 3 ml 07/11/25 07:51 Albuterol/Ipratropium (Duoneb) Rt Anya 3 Ml Nebu INH 08/10/25 07:50 Q2HR PRN SHORTNESS OF BREATH OR WHEEZE Dextrose 25 ml 07/10/25 01:36 Dextrose 50%-Water Inj 50 Ml Syringe IV 08/09/25 01:35 Q15MIN PRN BG 50-70 responsive npo pt Dextrose 50 ml 07/10/25 01:36 Dextrose 50%-Water Inj 50 Ml Syringe IV 08/09/25 01:35 Q15MIN PRN BG <50 OR BG <70 & pt unresponsive Diazepam 5 mg 07/10/25 13:30 07/14/25 09:31 Diazepam 5 Mg Tablet PO 07/15/25 13:29 5 mg BID RAFAEL Administration Duloxetine HCl 90 mg 07/10/25 21:00 07/13/25 20:21 Duloxetine Hcl 30 Mg Capsule PO 08/09/25 20:59 90 mg HS RAFAEL Administration Gabapentin 300 mg 07/10/25 21:00 07/14/25 09:31 Gabapentin 300 Mg Capsule PO 08/09/25 20:59 300 mg BID RAFAEL Administration Glucagon 1 mg 07/10/25 01:36 Glucagon Inj 1 Mg Vial IM Q15MIN PRN BG <70, and no IV access Heparin Sodium (Porcine) 5,000 unit 07/10/25 09:00 07/14/25 09:32 Heparin Sod Inj 5000 Unit/Ml Vial SC 07/24/25 08:59 5,000 unit Q12HR RAFAEL Administration Sodium Phosphate 15 mmol/ 255 mls @ 62.5 mls/hr 07/14/25 08:50 07/14/25 10:47 Sodium Chloride IV 07/14/25 12:54 62.5 mls/hr X1 ONE Administration Ceftriaxone Sodium/Dextrose 2 gm in 50 mls @ 100 mls/hr 07/14/25 09:44 07/14/25 10:03 Rocephin/D5w 2gm IV 07/21/25 09:43 100 mls/hr QDAY RAFAEL Administration Insulin Degludec 15 unit 07/10/25 21:00 07/13/25 20:21 Insulin Degludec 5 Unit/0.05 Ml (Per 5 Units) SC 08/09/25 20:59 15 unit HS [facility] Administration Insulin Human Lispro 0 unit 07/11/25 17:00 07/14/25 10:51 Insulin Lispro (Admelog) 1 Unit/0.01 Ml Unit SC 08/10/25 16:59 Not Given AC [facility] Protocol Lamotrigine 100 mg 07/10/25 11:00 07/14/25 09:31 Lamotrigine 100 Mg Tablet PO 08/09/25 10:59 100 mg QDAY RAFAEL Administration Losartan Potassium 25 mg 07/13/25 12:30 07/14/25 09:31 Losartan Potassium 25 Mg Tablet PO 08/12/25 12:29 25 mg QDAY RAFAEL Administration Midazolam HCl 2 mg 07/10/25 15:19 Midazolam Inj 1 Mg/Ml Vial 2 Ml IVP X1 PRN Severe Agitation Pharmacy Consult 1 each 07/10/25 09:00 Vancomycin Pharmacy To Dose 1 Each Each IV 08/09/25 08:59 QDAY PRN CONSULT Polyethylene Glycol 17 gm 07/13/25 09:00 07/14/25 09:32 Polyethylene Glycol 17 Gm Packet PO 08/12/25 08:59 17 gm QDAY RAFAEL Administration Potassium Phos/Sodium Phos 1 packet 07/14/25 09:00 07/14/25 09:32 [facility] Mbdb 1 Packet (1.5 Gm) PO 07/16/25 08:59 1 packet BID RAFAEL Administration Sennosides 1 tab 07/13/25 07:30 Senna/Docusate Sod 1 Tab Tablet PO 08/12/25 07:29 QDAY PRN CONSTIPATION Protocol Ziprasidone 20 mg 07/11/25 11:15 07/14/25 09:31 Ziprasidone 20 Mg Capsule PO 08/10/25 11:14 20 mg BID RAFAEL Administration Plan 64M with PMH DM2, PAD s/p 2 toes digits amputation splenectomy, hypothyroidism, HTN, MDD, Bipolar disorder, PTSD, presenting to ED with worsening left foot pain and shortness of breath. Admitted for acute hypoxic respiratory failure and osteomyelitis evaluation and management. #Sepsis 2/2 #MSSA bacteremia #Acute hypoxic respiratory failure 2/2 #Community acquired Pneumonia On admission pt was febrile, tachycardic 103.5, tachypneic 127, leukocytosis, lactate 3. Source likely multifactorial (bilateral pneumonia + diabetic neuropathy and hx of osteomyelitis) Hypoxia 82% RA, improved with O2 CXR: significant diffuse bilateral pneumonia qSOFA 2 (RR>22, hypoxia) Blood culture grew Staphylococcus aureus in 1/2 bottle Blood culture grew Gram positive cocci in 2/2 bottle ECHO 07/11/25:Estimated EF at 45-50 % - Discontinue Vancomysin (07/10-07/13) Plan - Started ceftriaxone 2 mg and doxycycline 100 mg BID - Blood culture 07/09 collected, preliminary results show gram positive cocci from both bottles - Repeat blood cultures drawn 07/12, pending read - Continue to monitor mentation - Monitor for fever and leukocytosis - Echocardiogram ordered to rule out vegetations #Osteomyelitis of the third metatarsal Osteomyelitis on left foot, amputation of fourth toe, there is an open wound on the plantar area corresponding to the third toe. On examination there is a left foot nonhealing wound and redness worsening over the past few days. Foot X-Ray:Cortical bone erosions in the amputated 3rd metatarsal, osteomyelitis distal 3rd metatarsal. Foot MRI: amputations distal 3rd metatarsal, proximal 4th digit, Soft tissue infection about the distal third metatarsal with cortical bone destruction involving the distal aspect of the third metatarsal Venous doppler left leg: Negative for DVT Pt will likely need PICC lines, final decision pending based in new blood culture results. Plan - Surgery consulted-no surgery required, no debridement or drainage needed. Continue IV antibiotics - Wound care - Started ceftriaxone 2 mg and doxycycline 100 mg BID - Infectious disease consulted, appreciate recommendations- repeat blood culture showed no growth after 48hrs #Peripheral Artery Disease Duplex sonography shows severe peripheral obstructive arterial disease left lower extremity. Diminished distal pulses present on examination. On medication cilostazol 50 mg p.o. twice daily Plan - Continue to monitor - Smoking cessation counseling - Will consider restarting cilostazol, pending med rec #Acute kidney injury (resolved) On admission pt cr 1.8 with baseline 0.9. Likely prerenal secondary to sepsis. Patient recieved 2L NS in ED. Renal panel is within normal limit. Plan -Avoid nephrotoxins -Monitor renal panel -Renally dosed medications - Continue to monitor CMP #Non-insulin depended Diabetes Mellitus II # Diabetic neuropathy On admission glucose 256, A1c 9.4. Hx of neuropathy manage with home medication gabapentin, Plan - insulin sliding scale step 1 - continue degludec 15 units HS - continue home gabapentin 300mg PO BID #Bipolar disorder #Major Depressive Disorder #Post-traumatic stress disorder Stable, but irritable and tangential speech. Plan - lamotrigine 100 mg PO - duloxetine 90mg - Midazolam 2mg IVP PRN - Diazepam 5mg for agitation - Ziprasidone 20 mg twice daily # Hypothyroidism Per chart review pt has history of hypothyroidism managed with home levothyroxine 75 mg p.o. 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 Likely secondary to poor oral intake. - Continue to monitor phosphorus, replenish when necessary - Neutraphos 1 packet BID from 07/14 to 07/16 Hospital management: Lines: peripheral IV Diet: Dysphagia 1-Pureed Bowel: MiraLAX and senna GI prophylaxis: pantoprazole DVT prophylaxis: heparin SC Disposition: tele for IV abx and AHRF CODE STATUS: DNR Patient seen and assessed under supervision of attending physician and discussed with senior resident Dr. Hurtado PGY-2 Attending Provider Attestation/Addendum Janis Morales DO, attest that I was physically present for the rojo portions of the service and evaluated the patient with the resident and I reviewed and discussed the case with the resident and agree with the resident's findings and plans of care as documented above Patient seen and evaluated this AM. He states that he wants to go home and is quite anxious to leave. Patient has been quite paranoid stating that his is home liquidating his assets. Difficult to redirect conversation with patient. He has no other complaints besides that. Pending PICC line placement and home health on Wednesday.
--- NOTE | 2025-07-14 11:02 | PD.RESPRO ---
Documentation for date of: 07/14/25 Exam Vital Signs Temp Pulse Resp BP Pulse Ox O2 Del Method O2 Flow Rate 98.3 F 84 18 145/79 H 96 Nasal Cannula 4 07/14/25 07:27 07/14/25 09:31 07/14/25 09:29 07/14/25 09:31 07/14/25 09:29 07/14/25 07:27 07/14/25 09:29 Objective Labs 07/13/25 04:07 07/13/25 04:07 ABG Interpretation ABG results: 07/09/25 22:40 ABG pH 7.35 ABG pCO2 46 ABG pO2 82 L ABG HCO3 25 ABG O2 Saturation 96 ABG Base Excess -1 Quality Measures Quality Measures sepsis Possible source: pulmonary, skin/soft tissue and wound Blood cultures ordered: yes Assessment & Plan Assessment Current Active Medications: Generic Name Dose Route Start Last Admin Trade Name Freq PRN Reason Stop Dose Admin Acetaminophen 650 mg 07/10/25 01:31 07/13/25 14:00 Acetaminophen 325 Mg Tablet PO 08/09/25 01:30 650 mg Q6H PRN Administration Fever >100.4 or pain 1-3 Protocol Albuterol/Ipratropium 3 ml 07/11/25 07:51 Albuterol/Ipratropium (Duoneb) Rt Anya 3 Ml Nebu INH 08/10/25 07:50 Q2HR PRN SHORTNESS OF BREATH OR WHEEZE Dextrose 25 ml 07/10/25 01:36 Dextrose 50%-Water Inj 50 Ml Syringe IV 08/09/25 01:35 Q15MIN PRN BG 50-70 responsive npo pt Dextrose 50 ml 07/10/25 01:36 Dextrose 50%-Water Inj 50 Ml Syringe IV 08/09/25 01:35 Q15MIN PRN BG <50 OR BG <70 & pt unresponsive Diazepam 5 mg 07/10/25 13:30 07/14/25 09:31 Diazepam 5 Mg Tablet PO 07/15/25 13:29 5 mg BID RAFAEL Administration Doxycycline Hyclate 100 mg 07/14/25 11:15 Doxycycline 100 Mg Tablet PO 07/21/25 11:14 BID RAFAEL Duloxetine HCl 90 mg 07/10/25 21:00 07/13/25 20:21 Duloxetine Hcl 30 Mg Capsule PO 08/09/25 20:59 90 mg HS RAFAEL Administration Gabapentin 300 mg 07/10/25 21:00 07/14/25 09:31 Gabapentin 300 Mg Capsule PO 08/09/25 20:59 300 mg BID RAFAEL Administration Glucagon 1 mg 07/10/25 01:36 Glucagon Inj 1 Mg Vial IM Q15MIN PRN BG <70, and no IV access Heparin Sodium (Porcine) 5,000 unit 07/10/25 09:00 07/14/25 09:32 Heparin Sod Inj 5000 Unit/Ml Vial SC 07/24/25 08:59 5,000 unit Q12HR RAFAEL Administration Sodium Phosphate 15 mmol/ 255 mls @ 62.5 mls/hr 07/14/25 08:50 07/14/25 10:47 Sodium Chloride IV 07/14/25 12:54 62.5 mls/hr X1 ONE Administration Ceftriaxone Sodium/Dextrose 2 gm in 50 mls @ 100 mls/hr 07/14/25 09:44 07/14/25 10:03 Rocephin/D5w 2gm IV 07/21/25 09:43 100 mls/hr QDAY RAFAEL Administration Insulin Degludec 15 unit 07/10/25 21:00 07/13/25 20:21 Insulin Degludec 5 Unit/0.05 Ml (Per 5 Units) SC 08/09/25 20:59 15 unit HS RAFAEL Administration Insulin Human Lispro 0 unit 07/11/25 17:00 07/14/25 10:51 Insulin Lispro (Admelog) 1 Unit/0.01 Ml Unit SC 08/10/25 16:59 Not Given AC [facility] Protocol Lamotrigine 100 mg 07/10/25 11:00 07/14/25 09:31 Lamotrigine 100 Mg Tablet PO 08/09/25 10:59 100 mg QDAY RAFAEL Administration Losartan Potassium 25 mg 07/13/25 12:30 07/14/25 09:31 Losartan Potassium 25 Mg Tablet PO 08/12/25 12:29 25 mg QDAY RAFAEL Administration Midazolam HCl 2 mg 07/10/25 15:19 Midazolam Inj 1 Mg/Ml Vial 2 Ml IVP X1 PRN Severe Agitation Pharmacy Consult 1 each 07/10/25 09:00 Vancomycin Pharmacy To Dose 1 Each Each IV 08/09/25 08:59 QDAY PRN CONSULT Polyethylene Glycol 17 gm 07/13/25 09:00 07/14/25 09:32 Polyethylene Glycol 17 Gm Packet PO 08/12/25 08:59 17 gm QDAY RAFAEL Administration Potassium Phos/Sodium Phos 1 packet 07/14/25 09:00 07/14/25 09:32 [facility] Mbdb 1 Packet (1.5 Gm) PO 07/16/25 08:59 1 packet BID RAFAEL Administration Sennosides 1 tab 07/13/25 07:30 Senna/Docusate Sod 1 Tab Tablet PO 08/12/25 07:29 QDAY PRN CONSTIPATION Protocol Ziprasidone 20 mg 07/11/25 11:15 07/14/25 09:31 Ziprasidone 20 Mg Capsule PO 08/10/25 11:14 20 mg BID RAFAEL Administration
[2025-07-14] MEDS: DOXYCYCLINE 100 MG TABLET PO ×2 (11:42→20:42)
--- NOTE | 2025-07-14 11:44 | PC.NURSE ---
Patient refuses oxygen via NC with humidifier states it dries my nose and throat and makes me cough like crazy . Educated patient oxygen saturation is between 87-90% room air and patient need to take deep breaths to keep oxygen saturation above 90%. HOB elevated. Dr. Jama and residents at bedside. Informed Dr. Hurtado of patient refusing. Dr. Hurtado states to monitor patients mental status and report any changes as needed.
--- NOTE | 2025-07-14 14:00 | PC.SS ---
Rounding note: on IV antibiotics, pending Dr. Abebe on Wednesday, Wednesday piccline, patient will need MH eval.
[2025-07-14] MEDS: ACETAMINOPHEN 325 MG TABLET 650 MG PO (15:05)
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
[2025-07-14] MEDS: MIDAZOLAM INJ 1 MG/ML VIAL 2 ML 2 MG IVP (18:35)
--- NOTE | 2025-07-14 18:58 | PC.NURSE ---
Just before shift change, Pt stated he wanted to stretch his legs due to pain. He then sat on side of bed and stood for couple seconds with my assistance/supervision, he asked for his cane out of the closet and I handed to him to better stabilize him. Shortly afterwards he stated he didn't have anything to live for and walked towards the window stating he wanted to jump off and end it all. He then began hitting his head on the window. I immediately asked him to stop and guided his back away from the window safely. I then called out for a code john. He sat back onto the bed stating he had nothing to live for as I consoled him and stayed at bedside. Nursing staff, doctor, and security came in as I took vitals, pt was stable and showed no head/face injuries. He then began to tell nursing staff he never tried to harm himself. I asked if he recalled the incidents that just occurred and he firmly stated no, I never did that. He then asked to use commode for BM, pt was able to safely transfer to [facility] with one person assist and pass a BM. Myself and security stayed at bedside with pt while he used the commode. He was safely assisted back to bed requesting to watch tv. [employer] camera was moved opposite side of room from pt for safety. Stayed at bedside with pt.
[2025-07-14] MEDS: DULoxetine HCL 30 MG CAPSULE 90 MG PO (20:41)
[2025-07-14] MEDS: INSULIN DEGLUDEC 5 UNIT/0.05 ML (PER 5 UNITS) 15 UNIT SC (20:43)
[2025-07-14 21:43] LABS: Basophils # (Auto) 0.1 Thou/mm3 (0.0-0.2); Basophils % (Auto) 0 % (0-2.5); Eosinophils # (Auto) 0.2 Thou/mm3 (0.0-0.5); Eosinophils % (Auto) 1 % (0-10); Hematocrit 28.3 % (41.0-53.0); Hemoglobin 9.6 g/dL (13.5-16.0); Immature Granulocytes Auto 1.18 Thou/mm3 (0.00-0.00); Lymphocytes # (Auto) 2.6 Thou/mm3 (1.0-4.8); Lymphocytes % (Auto) 12 % (10-50); Mean Corpuscular HGB Conc 33.9 g/dl (31.0-37.0); Mean Corpuscular Hemoglobin 28.7 pg (25.0-35.0); Mean Corpuscular Volume 85 fL (80-100); Monocytes # (Auto) 2.8 Thou/mm3 (0.0-0.8); Monocytes % (Auto) 13 % (0-12); Neutrophils # (Auto) 14.8 Thou/mm3 (1.8-7.7); Neutrophils % (Auto) 68 % (37-80); Nucleated Red Blood Cell # 0.16 Thou/mm3 (0.00-0.00); Nucleated Red Blood Cell % 1 /100 WBC (0); Platelet Count 677 Thou/mm3 (140-440); RDW Standard Deviation 47.0 fL (35.1-43.9); Red Blood Count 3.34 Miln/mm3 (4.50-5.90); White Blood Count 21.7 Thou/mm3 (3.8-10.6)
[2025-07-14 22:01] LABS: Alanine Aminotransferase 27 U/L (10-49); Albumin, Serum 3.5 gm/dL (3.4-4.8); Anion Gap 10 (7-16); Aspartate Amino Transferase 37 U/L (0-34); BUN/Creatinine Ratio 19 Ratio (12-20); Bilirubin,Total 0.2 mg/dL (0.3-1.2); Blood Urea Nitrogen 13 mg/dL (9-23); Calcium 8.9 mg/dL (8.3-10.6); Calcium (Corrected) 9.3 mg/dL (8.5-10.1); Carbon Dioxide 25.0 mMol/L (20.0-31.0); Chloride 104 mMol/L (98-107); Creatinine (Component) 0.7 mg/dL (0.6-1.3); Estimated Creatinine Clearance 113.5 mL/min (>60); Globulin 2.6 gm/dL (2.3-3.5); Glucose 146 mg/dL (74-106); Magnesium 1.2 mg/dL (1.6-2.6); Osmolality,Calculated 280 (275-295); Phosphorous 2.3 mg/dL (2.4-5.1); Potassium 3.7 mMol/L (3.4-5.1); Sodium 139 mMol/L (136-145); Total Protein 6.1 gm/dL (5.7-8.2); eGFR > 60 See Note
[2025-07-14 22:02] LABS: Albumin/Globulin Ratio 1.3 (1.2-2.2); Alkaline Phosphatase 262 U/L (46-116); Vancomycin,Trough 7.5 mcg/mL (5.0-10.0)
[2025-07-14 22:19] LABS: Path Review Blood Smear Sent to Pathologist
[2025-07-15] VITALS (12 sets, daily range): BP systolic 124–189; BP diastolic 67–105; PULSE 80–95; RESP 17–20; TEMP 36.3–36.9; O2SAT 7–99
[2025-07-15 05:26] LABS: Basophils # (Auto) 0.1 Thou/mm3 (0.0-0.2); Basophils % (Auto) 0 % (0-2.5); Eosinophils # (Auto) 0.2 Thou/mm3 (0.0-0.5); Eosinophils % (Auto) 1 % (0-10); Hematocrit 32.0 % (41.0-53.0); Hemoglobin 10.5 g/dL (13.5-16.0); Immature Granulocytes Auto 1.64 Thou/mm3 (0.00-0.00); Lymphocytes # (Auto) 2.3 Thou/mm3 (1.0-4.8); Lymphocytes % (Auto) 9 % (10-50); Mean Corpuscular HGB Conc 32.8 g/dl (31.0-37.0); Mean Corpuscular Hemoglobin 27.7 pg (25.0-35.0); Mean Corpuscular Volume 84 fL (80-100); Monocytes # (Auto) 2.5 Thou/mm3 (0.0-0.8); Monocytes % (Auto) 10 % (0-12); Neutrophils # (Auto) 17.8 Thou/mm3 (1.8-7.7); Neutrophils % (Auto) 73 % (37-80); Nucleated Red Blood Cell # 0.26 Thou/mm3 (0.00-0.00); Nucleated Red Blood Cell % 1 /100 WBC (0); Platelet Count 646 Thou/mm3 (140-440); RDW Standard Deviation 47.1 fL (35.1-43.9); Red Blood Count 3.79 Miln/mm3 (4.50-5.90); White Blood Count 24.4 Thou/mm3 (3.8-10.6)
[2025-07-15 05:59] LABS: Alanine Aminotransferase 25 U/L (10-49); Albumin, Serum 3.8 gm/dL (3.4-4.8); Albumin/Globulin Ratio 1.4 (1.2-2.2); Alkaline Phosphatase 270 U/L (46-116); Anion Gap 13 (7-16); Aspartate Amino Transferase 26 U/L (0-34); BUN/Creatinine Ratio 16 Ratio (12-20); Bilirubin,Total 0.3 mg/dL (0.3-1.2); Blood Urea Nitrogen 11 mg/dL (9-23); Calcium 9.4 mg/dL (8.3-10.6); Calcium (Corrected) 9.6 mg/dL (8.5-10.1); Carbon Dioxide 25.9 mMol/L (20.0-31.0); Chloride 102 mMol/L (98-107); Creatinine (Component) 0.7 mg/dL (0.6-1.3); Estimated Creatinine Clearance 113.5 mL/min (>60); Globulin 2.8 gm/dL (2.3-3.5); Glucose 137 mg/dL (74-106); Magnesium 1.2 mg/dL (1.6-2.6); Osmolality,Calculated 282 (275-295); Phosphorous 2.1 mg/dL (2.4-5.1); Potassium 3.7 mMol/L (3.4-5.1); Sodium 141 mMol/L (136-145); Total Protein 6.6 gm/dL (5.7-8.2); eGFR > 60 See Note
[2025-07-15] MEDS: INSULIN LISPRO (AdmeLOG) 1 UNIT/0.01 ML UNIT SC ×2 (07:42→17:16)
[2025-07-15] MEDS: ZIPRASIDONE 20 MG CAPSULE PO ×2 (09:14→20:16)
[2025-07-15] MEDS: HEPARIN SOD INJ 5000 UNIT/ML VIAL SC ×2 (09:14→20:15)
[2025-07-15] MEDS: cefTRIAXone/D5w 2gm 2 GM/50 ML BAG IV (09:14)
[2025-07-15] MEDS: DOXYCYCLINE 100 MG TABLET PO ×2 (09:15→20:16)
[2025-07-15] MEDS: DIAZEPAM 5 MG TABLET PO ×2 (09:15→20:16)
[2025-07-15] MEDS: LOSARTAN POTASSIUM 25 MG TABLET PO ×2 (09:15→10:58)
[2025-07-15] MEDS: ACETAMINOPHEN 325 MG TABLET 650 MG PO (09:15)
[2025-07-15] MEDS: GABAPENTIN 300 MG CAPSULE PO ×2 (09:15→20:16)
[2025-07-15] MEDS: NAPH,KPH MBDB 1 PACKET (1.5 GM) PO ×3 (09:16→20:15)
--- NOTE | 2025-07-15 09:29 | ESPR_ITS ---
<Statement entered by Henry Hurtado MD - 07/15/25 15:59> Patient was seen and examined at bedside. I agree on the assessment and plan on this note as documented by resident Alfonso Christy DO PGY1. 64-year-old male with past medical history of T2DM, PAD s/p left fourth toe amputation, s/p splenectomy, hypothyroidism, hypertension, MDD, bipolar disorder, PTSD, who presented to [facility] ED on 07/10 for eliciting left foot pain and shortness of breath. Patient was admitted for sepsis, acute hypoxic respiratory failure and management of osteomyelitis. Patient initially started on Zosyn and vancomycin, general surgery consulted recommended medical management, infectious disease was consulted, patient also noted to have 2/2 MSSA bacteremia, transthoracic echocardiogram negative for any vegetations new onset heart failure with reduced ejection fraction EF 40 to 45% noted otherwise. Zosyn was discontinued by ID, post culture speciation and sensitivity patient transition to ceftriaxone and doxycycline, consider SHAHID per ID recommendations if clinically indicated. Patient reported suicidal ideation multiple times throughout the hospitalization course, had multiple code greys currently being managed on ziprasidone, home medications for peripheral neuropathy adjusted to avoid interactions. Patient seems euvolemic, no indication for diuresis currently no signs of acute decompensated heart failure. Has poor p.o. intake, disposition MedSurg pending infectious disease recommendations will likely need PICC line to be placed on Wednesday. Patient will need psych clearance prior to discharge. Case discussed with attending Dr. Janis Cornelius MD PGY-2 Documentation for date of: 07/15/25 Subjective Subjective Interval history: Overnight events: No acute events overnight. Patient was seen and examined at bedside. AM vitals and labs reviewed. Patient was seen today on the commode. Depressed affect. Patient was stating how his has stolen everything from him and how he only came in for some antibiotics, but now the hospital is keeping him. No acute complaints at this time. Patient continues to have poor oral intake. WBC increased to 24.4. Phosphorus low at 2.1 and magnesium low at 1.2. Replenish phosphorus and magnesium respectively. Echocardiogram resulted as normal LV size and wall thickness, estimated EF 45 to 50%, and global left ventricular systolic function mildly decreased. Continue ziprasidone 20 mg. Losartan increased to 50 mg daily with additional one-time dose of losartan 25 mg given continued hypertension. Pending further recommendations from ID, Dr Abebe, on Wednesday with possible PICC line placement on Wednesday. Started maintenance fluids LR at 75 cc/h. Review of systems otherwise negative except for what is mentioned above. Exam Vital Signs Temp Pulse Resp BP Pulse Ox O2 Del Method O2 Flow Rate 98.4 F 88 20 142/79 H 91 L Nasal Cannula 4 07/15/25 04:00 07/15/25 04:00 07/15/25 04:00 07/15/25 04:00 07/15/25 04:00 07/15/25 04:00 07/15/25 04:00 FiO2 91 07/15/25 04:00 Narrative Exam Physical Exam: General: Alert, no acute distress. Skin: Warm, dry, intact. Head: Normocephalic, atraumatic. Eye: Normal conjunctiva, PERRL. Cardiovascular: Regular rate and rhythm, no murmur, +S1/S2. Respiratory: Lungs are clear to auscultation, respirations unlabored, no crackles, no wheezing. Gastrointestinal: Soft, nontender, non-distended. No guarding or rebound tenderness. Extremities: No edema, no cyanosis, no clubbing. Left plantar wound at 2nd and 3rd distal metatarsal head, nontender. 4th toe amputation. Neuro: No focal deficits observed. Conversant, moving all extremities. No overt cerebellar signs/incoordination. Psychiatric: Uncooperative, sad affect. Objective Labs 07/16/25 04:43 07/16/25 04:43 Labs: Laboratory Results - last 24 hr 07/14/25 07/15/25 21:13 04:27 WBC 21.7 H 24.4 H RBC 3.34 L 3.79 L Hgb 9.6 L 10.5 L Hct 28.3 L 32.0 L MCV 85 84 MCH 28.7 27.7 MCHC 33.9 32.8 RDW Std Deviation 47.0 H 47.1 H Plt Count 677 H D 646 H D Neut % (Auto) 68 73 Lymph % (Auto) 12 9 L [place] % (Auto) 13 H 10 Eos % (Auto) 1 1 Baso % (Auto) 0 0 Neut # (Auto) 14.8 H 17.8 H Lymph # (Auto) 2.6 2.3 [place] # (Auto) 2.8 H 2.5 H Eos # (Auto) 0.2 0.2 Baso # (Auto) 0.1 0.1 Immature Gran # (Auto) 1.18 H 1.64 H Absolute Nucleated RBC 0.16 H 0.26 H Immature Gran % 5 H 7 H Nucleated RBC % 1 H 1 H Smear Path Review Sent to Pathologist Sodium 139 141 Potassium 3.7 3.7 Chloride 104 102 Carbon Dioxide 25.0 25.9 Anion Gap 10 13 BUN 13 11 Creatinine 0.7 0.7 Estim Creat Clear Calc 113.5 113.5 eGFR > 60 > 60 BUN/Creatinine Ratio 19 16 Glucose 146 H 137 H Calculated Osmolality 280 282 Calcium 8.9 9.4 Corrected Calcium 9.3 9.6 Phosphorus 2.3 L 2.1 L Magnesium 1.2 L 1.2 L Total Bilirubin 0.2 L 0.3 AST 37 H 26 ALT 27 25 Alkaline Phosphatase 262 H 270 H Total Protein 6.1 6.6 Albumin 3.5 3.8 Globulin 2.6 2.8 Albumin/Globulin Ratio 1.3 1.4 Vancomycin Trough 7.5 ABG Interpretation ABG results: 07/09/25 22:40 ABG pH 7.35 ABG pCO2 46 ABG pO2 82 L ABG HCO3 25 ABG O2 Saturation 96 ABG Base Excess -1 Quality Measures Quality Measures VTE prophylaxis and sepsis Current suspected stage: sepsis Possible source: pulmonary, skin/soft tissue and wound Blood cultures ordered: yes Antibiotic ordered: Yes Assessment & Plan Assessment Current Active Medications: Generic Name Dose Route Start Last Admin Trade Name Freq PRN Reason Stop Dose Admin Acetaminophen 650 mg 07/10/25 01:31 07/14/25 15:05 Acetaminophen 325 Mg Tablet PO 08/09/25 01:30 650 mg Q6H PRN Administration Fever >100.4 or pain 1-3 Protocol Albuterol/Ipratropium 3 ml 07/11/25 07:51 Albuterol/Ipratropium (Duoneb) Rt Anya 3 Ml Nebu INH 08/10/25 07:50 Q2HR PRN SHORTNESS OF BREATH OR WHEEZE Dextrose 25 ml 07/10/25 01:36 Dextrose 50%-Water Inj 50 Ml Syringe IV 08/09/25 01:35 Q15MIN PRN BG 50-70 responsive npo pt Dextrose 50 ml 07/10/25 01:36 Dextrose 50%-Water Inj 50 Ml Syringe IV 08/09/25 01:35 Q15MIN PRN BG <50 OR BG <70 & pt unresponsive Diazepam 5 mg 07/10/25 13:30 07/14/25 20:41 Diazepam 5 Mg Tablet PO 07/21/25 13:29 5 mg BID RAFAEL Administration Doxycycline Hyclate 100 mg 07/14/25 11:15 07/14/25 20:42 Doxycycline 100 Mg Tablet PO 07/21/25 11:14 100 mg BID RAFAEL Administration Duloxetine HCl 90 mg 07/10/25 21:00 07/14/25 20:41 Duloxetine Hcl 30 Mg Capsule PO 08/09/25 20:59 90 mg HS RAFAEL Administration Gabapentin 300 mg 07/10/25 21:00 07/14/25 20:41 Gabapentin 300 Mg Capsule PO 08/09/25 20:59 300 mg BID RAFAEL Administration Glucagon 1 mg 07/10/25 01:36 Glucagon Inj 1 Mg Vial IM Q15MIN PRN BG <70, and no IV access Heparin Sodium (Porcine) 5,000 unit 07/10/25 09:00 07/14/25 20:43 Heparin Sod Inj 5000 Unit/Ml Vial SC 07/24/25 08:59 5,000 unit Q12HR RAFAEL Administration Ceftriaxone Sodium/Dextrose 2 gm in 50 mls @ 100 mls/hr 07/14/25 09:44 07/14/25 10:03 Rocephin/D5w 2gm IV 07/21/25 09:43 100 mls/hr QDAY RAFAEL Administration Magnesium Sulfate 4 gm in 50 mls @ 12.5 mls/hr 07/15/25 08:17 Magnesium Sulfate Ivpb IV 07/15/25 12:16 X1 ONE Magnesium Sulfate 4 gm in 50 mls @ 12.5 mls/hr 07/15/25 12:20 Magnesium Sulfate Ivpb IV 07/15/25 16:19 X1 ONE Insulin Degludec 15 unit 07/10/25 21:00 07/14/25 20:43 Insulin Degludec 5 Unit/0.05 Ml (Per 5 Units) SC 08/09/25 20:59 15 unit HS RAFAEL Administration Insulin Human Lispro 0 unit 07/11/25 17:00 07/15/25 07:42 Insulin Lispro (Admelog) 1 Unit/0.01 Ml Unit SC 08/10/25 16:59 2 unit AC RAFAEL Administration Protocol Lamotrigine 100 mg 07/10/25 11:00 07/14/25 09:31 Lamotrigine 100 Mg Tablet PO 08/09/25 10:59 100 mg QDAY RAFAEL Administration Losartan Potassium 25 mg 07/13/25 12:30 07/14/25 09:31 Losartan Potassium 25 Mg Tablet PO 08/12/25 12:29 25 mg QDAY RAFAEL Administration Polyethylene Glycol 17 gm 07/13/25 09:00 07/14/25 09:32 Polyethylene Glycol 17 Gm Packet PO 08/12/25 08:59 17 gm QDAY RAFAEL Administration Potassium Phos/Sodium Phos 1 packet 07/14/25 09:00 07/14/25 20:41 [facility] Mbdb 1 Packet (1.5 Gm) PO 07/16/25 08:59 1 packet BID RAFAEL Administration Sennosides 1 tab 07/13/25 07:30 Senna/Docusate Sod 1 Tab Tablet PO 08/12/25 07:29 QDAY PRN CONSTIPATION Protocol Ziprasidone 20 mg 07/11/25 11:15 07/14/25 21:01 Ziprasidone 20 Mg Capsule PO 08/10/25 11:14 20 mg BID RAFAEL Administration Plan Assessment and Plan: Mr. Loaiza is a 64-year-old male with a past history of T2DM, PAD s/p left fourth toe amputation, s/p splenectomy, hypothyroidism, hypertension, MDD, bipolar disorder, PTSD, who presented to [facility] ED on 07/10 for eliciting left foot pain and shortness of breath. Patient was admitted for sepsis and acute hypoxic respiratory failure. #Sepsis 2/2 #MSSA bacteremia #Osteomyelitis of the third metatarsal #Acute hypoxic respiratory failure 2/2 #Community acquired Pneumonia On admission pt was febrile, tachycardic 103.5, tachypneic 127, leukocytosis, lactate 3. Source likely multifactorial (bilateral pneumonia + diabetic neuropathy and hx of osteomyelitis) Hypoxia 82% RA, improved with O2; CXR: significant diffuse bilateral pneumonia, qSOFA 2 (RR>22, hypoxia) Osteomyelitis on left foot, amputation of fourth toe, there is an open wound on the plantar area corresponding to the third toe. On examination there is a left foot nonhealing wound and redness worsening over the past few days. Foot X-Ray: Cortical bone erosions in the amputated 3rd metatarsal, osteomyelitis distal 3rd metatarsal. Foot MRI: amputations distal 3rd metatarsal, proximal 4th digit, Soft tissue infection about the distal third metatarsal with cortical bone destruction involving the distal aspect of the third metatarsal Venous doppler left leg: Negative for DVT; 06/08: Blood culture grew Staphylococcus aureus in 2/2 bottle TTE 07/11/25:Estimated EF at 45-50 %, no vegetations Received Vancomycin (07/10-07/13) Plan - Continue ceftriaxone 2 mg and doxycycline 100 mg BID (07/14- - Repeat blood cultures drawn 07/12, no growth - Will likely need PICC line placement on Wednesday, pending ID recs - Will consider SHAHID if clinically warranted, pending ID Reccomendations - Surgery consulted: debridement or drainage needed. Continue IV antibiotics - Wound care - Infectious disease consulted, appreciate recommendations #Peripheral Artery Disease Duplex sonography 07/09 shows severe peripheral obstructive arterial disease left lower extremity. Diminished distal pulses present on examination. Patient on cilostazol and aspirin at home Plan - Continue to monitor - Smoking cessation counseling - Cilostazol contraindicated patient has heart failure with moderately reduced ejection fraction #Heart failure with moderately reduced ejection fraction, EF 45 to 50% #Global left ventricular systolic function mildly decreased, systolic heart failure Patient not in any acute exacerbation, echocardiogram obtained for MSSA bacteremia, incidental finding. TTE 07/11:normal LV size, wall thickness. Normal left ventricular diastolic function. Estimated EF at 45-50 %. Global left ventricular systolic function is mildly decreased. The RV is normal in size and systolic function. Trace MR and TR. Dilated IVC. Mild PI. Plan: - Monitor fluid status - Outpatient cardiology workup #Acute kidney injury (resolved) On admission pt Cr 1.8 with baseline 0.9. Likely prerenal secondary to sepsis. Patient recieved 2L NS in ED. Renal panel is within normal limit. Plan -Avoid nephrotoxins -Monitor renal panel -Renally dosed medications - Continue to monitor CMP #Non-insulin depended Diabetes Mellitus II #Diabetic neuropathy On admission glucose 256, A1c 9.4. Hx of neuropathy manage with home medication gabapentin, Plan - insulin sliding scale step 1 - continue degludec 15 units HS - continue home gabapentin 300mg PO BID #Bipolar disorder #Major Depressive Disorder #Post-traumatic stress disorder Patient has a history of bipolar disorder, major depressive disorder, and PTSD. On 07/10, the patient was agitated and aggressive towards the staff as well as noted to have suicidal ideation. Patient had consistent suicidal ideation throughout hospitalization afterwards. Plan - Lamotrigine 100 mg PO - Duloxetine 90mg - Midazolam 2mg IVP PRN - Diazepam 5mg for agitation - Ziprasidone 20 mg twice daily - LR 75 cc/h maintenance fluids given poor oral intake due to labile mood #Hypothyroidism Per chart review pt has history of hypothyroidism managed with home levothyroxine 75 mg p.o. 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 Likely secondary to poor oral intake. - Continue to monitor phosphorus, replenish when necessary - Neutraphos 1 packet BID from 07/14 to 07/16 DVT Prophylaxis: Heparin GI Prophylaxis: N/A Bowel: Miralax and Senna Diet: Dysphagia 1, pureed, cardiac, consistent carb low, and Glucerna shake [place]: N/A Lines: Peripheral IV Antibiotics: Ceftriaxone and Doxycycline Code Status: DNR Reason for Hospitalization: Sepsis and AHRF Other Barriers to Discharge: Bacteremia, ID recommendations, possible PICC line 07/17 Patient plan of care was discussed with the senior resident Dr. Hurtado (PGY-2) and attending physician Dr. Wiley Christy, PGY1 Attending Provider Attestation/Addendum I, Janis Jama DO, attest that I was physically present for the rojo portions of the service and evaluated the patient with the resident and I reviewed and discussed the case with the resident and agree with the resident's findings and plans of care as documented above Patient seen and evaluated this AM. Patient is much calmer and willing to take his medications. He continues to be eager to go home. He remains on IV abx, continue with current management, anticipate DC within next 48-72. Pending ID recs and possible PICC line placement on Wednesday as tomorrow is a holiday and no IR available. Leukocytosis uptrending. However, patient is afebrile.
[2025-07-15] MEDS: RINGERS LACTATED 1000 ML 1,000 ML 75 ML IV (10:58)
[2025-07-15] MEDS: Magnesium Sulfate 4 GM Ivpb 4 GM/50 ML BAG IV ×2 (10:58→14:16)
--- NOTE | 2025-07-15 14:23 | PC.SS ---
Rounding note: pending piccline Wednesday, needs mental health evaluation once medically clear.
--- NOTE | 2025-07-15 18:41 | PC.NURSE ---
Patient continues to be non-compliant with wearing oxygen via NC with humidifier despite repeated education. Patient continues to state that it dries up his throat and makes him cough and choke.
--- NOTE | 2025-07-15 19:38 | PC.NURSE ---
Pt complaints of right shoulder pain, pt stated that he has a rotator cuff, Tylenol offered but pt refused, he wants a stronger pain meds. MD Torrez made aware, new order to give norco x1.
[2025-07-15] MEDS: HYDROcodone/APAP 5/325 TABLET 1 TAB PO (19:46)
--- NOTE | 2025-07-15 19:49 | EKG_ITS ---
[facility] Test Date: 2025-07-15 Pat Name: PROMISE MIKE Department: Room: S362A Gender: Male [employer]: ABRAHAM : 1960 Requested By: Mitchel Bell Order Number: [id number] Reading MD: Mitchel Bell Measurements Intervals [place] Rate: 94 P: 49 MA: 161 QRS: -67 QRSD: 99 T: 43 QT: 314 QTc: 393 Interpretive Statements SINUS RHYTHM WITH OCCASIONAL ECTOPIC PREMATURE COMPLEXES LOW QRS VOLTAGE IN EXTREMITY LEADS PATTERN CONSISTENT WITH PULMONARY DISEASE INFERIOR MYOCARDIAL INFARCTION , PROBABLY OLD Compared to ECG 07/11/2025 08:13:08 Low QRS voltage now present Sinus tachycardia no longer present Ventricular premature complex(es) no longer present Myocardial infarct finding still present /store/S0/[id number].pdf
--- NOTE | 2025-07-15 19:49 | XR_ITS ---
Examination: AP chest single view Technique: Portable sitting AP chest single view Date and time: July 15, 20251957 hrs., Comparison July 09, 2025 Indications: Chest pain today. Findings: Prominent CHF Enlarged cardiac contour with vascular congestion perihilar edema, superimposed pneumonia not excluded Moderate osteopenia Impression: Prominent CHF, vascular congestion with perihilar edema, superimposed pneumonia not excluded, clinical correlation advised
[2025-07-15] MEDS: NITROGLYCERIN 0.4 MG SUBL BTL #25 SL (19:56)
[2025-07-15] MEDS: ASPIRIN 81 MG CHEW 324 MG PO (20:02)
[2025-07-15 20:14] LABS: Basophils # (Auto) 0.2 Thou/mm3 (0.0-0.2); Basophils % (Auto) 1 % (0-2.5); Eosinophils # (Auto) 0.3 Thou/mm3 (0.0-0.5); Eosinophils % (Auto) 1 % (0-10); Hematocrit 30.5 % (41.0-53.0); Hemoglobin 10.1 g/dL (13.5-16.0); Immature Granulocytes Auto 2.03 Thou/mm3 (0.00-0.00); Lymphocytes # (Auto) 2.5 Thou/mm3 (1.0-4.8); Lymphocytes % (Auto) 10 % (10-50); Mean Corpuscular HGB Conc 33.1 g/dl (31.0-37.0); Mean Corpuscular Hemoglobin 27.8 pg (25.0-35.0); Mean Corpuscular Volume 84 fL (80-100); Monocytes # (Auto) 2.2 Thou/mm3 (0.0-0.8); Monocytes % (Auto) 9 % (0-12); Neutrophils # (Auto) 17.8 Thou/mm3 (1.8-7.7); Neutrophils % (Auto) 71 % (37-80); Nucleated Red Blood Cell # 0.39 Thou/mm3 (0.00-0.00); Nucleated Red Blood Cell % 2 /100 WBC (0); Platelet Count 850 Thou/mm3 (140-440); RDW Standard Deviation 46.4 fL (35.1-43.9); Red Blood Count 3.63 Miln/mm3 (4.50-5.90); White Blood Count 25.0 Thou/mm3 (3.8-10.6)
[2025-07-15] MEDS: DULoxetine HCL 30 MG CAPSULE 90 MG PO (20:15)
[2025-07-15] MEDS: INSULIN DEGLUDEC 5 UNIT/0.05 ML (PER 5 UNITS) 15 UNIT SC (20:15)
[2025-07-15 20:32] LABS: Anion Gap 9 (7-16); BUN/Creatinine Ratio 14 Ratio (12-20); Blood Urea Nitrogen 11 mg/dL (9-23); Calcium 8.9 mg/dL (8.3-10.6); Carbon Dioxide 28.8 mMol/L (20.0-31.0); Chloride 100 mMol/L (98-107); Creatinine (Component) 0.8 mg/dL (0.6-1.3); Estimated Creatinine Clearance 97.0 mL/min (>60); Glucose 177 mg/dL (74-106); Magnesium 2.3 mg/dL (1.6-2.6); Osmolality,Calculated 279 (275-295); Potassium 3.2 mMol/L (3.4-5.1); Sodium 138 mMol/L (136-145); Troponin I < 0.020 ng/mL (0.0-0.045); eGFR > 60 See Note
--- NOTE | 2025-07-15 20:41 | PC.NURSE ---
MD Gama made aware of labs result, troponin negative, potassium 3.2, order potassium 40mg x1. Will admin meds once available.
[2025-07-15 23:10] LABS: Path Review Blood Smear Sent to Pathologist
--- NOTE | 2025-07-15 23:46 | EVENTNT_ITS ---
Documentation for date of: 07/15/25 Event Note Event Note: Rapid response called shortly after 2000 hrs. for significant chest pain. Patient had tangential speech, difficult to elicit history. Patient reports having left-sided chest pain, possibly pleuritic, nonreproducible, on exam a ppeared to be in significant distress, anxious. EKG taken at time did not show significant changes. Patient given loading dose aspirin and nitro, with improvement in pain. CBC, BMP, troponin ordered, potassium repleted. Troponin negative. Chest x-ray at the time showed fluid overload status, ordered 40 IV Lasix x 1. Plan of care discussed with attending Dr. Lee Ann Chen MD PGY?2
[2025-07-16] VITALS (10 sets, daily range): BP systolic 129–153; BP diastolic 63–91; PULSE 73–90; RESP 18–19; TEMP 36.3–37.1; O2SAT 82–91; BMI 30.4
[2025-07-16] MEDS: FUROSEMIDE INJ 10 MG/ML 4ML VIAL 40 MG IVP ×2 (00:17→12:05)
[2025-07-16] MEDS: RINGERS LACTATED 1000 ML 1,000 ML 75 ML IV (01:27)
[2025-07-16 05:40] LABS: Basophils # (Auto) 0.1 Thou/mm3 (0.0-0.2); Basophils % (Auto) 1 % (0-2.5); Eosinophils # (Auto) 0.3 Thou/mm3 (0.0-0.5); Eosinophils % (Auto) 1 % (0-10); Hematocrit 29.7 % (41.0-53.0); Hemoglobin 9.9 g/dL (13.5-16.0); Immature Granulocytes Auto 1.85 Thou/mm3 (0.00-0.00); Lymphocytes # (Auto) 2.6 Thou/mm3 (1.0-4.8); Lymphocytes % (Auto) 12 % (10-50); Mean Corpuscular HGB Conc 33.3 g/dl (31.0-37.0); Mean Corpuscular Hemoglobin 28.5 pg (25.0-35.0); Mean Corpuscular Volume 86 fL (80-100); Monocytes # (Auto) 2.2 Thou/mm3 (0.0-0.8); Monocytes % (Auto) 10 % (0-12); Neutrophils # (Auto) 15.4 Thou/mm3 (1.8-7.7); Neutrophils % (Auto) 68 % (37-80); Nucleated Red Blood Cell # 0.40 Thou/mm3 (0.00-0.00); Nucleated Red Blood Cell % 2 /100 WBC (0); Platelet Count 574 Thou/mm3 (140-440); RDW Standard Deviation 46.1 fL (35.1-43.9); Red Blood Count 3.47 Miln/mm3 (4.50-5.90); White Blood Count 22.5 Thou/mm3 (3.8-10.6)
[2025-07-16 06:09] LABS: Alanine Aminotransferase 20 U/L (10-49); Albumin, Serum 3.4 gm/dL (3.4-4.8); Albumin/Globulin Ratio 1.1 (1.2-2.2); Alkaline Phosphatase 226 U/L (46-116); Anion Gap 9 (7-16); Aspartate Amino Transferase 18 U/L (0-34); BUN/Creatinine Ratio 11 Ratio (12-20); Bilirubin,Total 0.3 mg/dL (0.3-1.2); Blood Urea Nitrogen 9 mg/dL (9-23); Calcium 8.6 mg/dL (8.3-10.6); Calcium (Corrected) 9.1 mg/dL (8.5-10.1); Carbon Dioxide 29.4 mMol/L (20.0-31.0); Chloride 100 mMol/L (98-107); Creatinine (Component) 0.8 mg/dL (0.6-1.3); Estimated Creatinine Clearance 97.0 mL/min (>60); Globulin 3.1 gm/dL (2.3-3.5); Glucose 225 mg/dL (74-106); Osmolality,Calculated 281 (275-295); Potassium 3.3 mMol/L (3.4-5.1); Sodium 138 mMol/L (136-145); Total Protein 6.5 gm/dL (5.7-8.2); eGFR > 60 See Note
[2025-07-16] MEDS: LIDOCAINE 5% 1 PATCH TOP (06:12)
--- NOTE | 2025-07-16 06:17 | PC.NURSE ---
Pt complaints again of chest pain and all over her chest, MD Crooks made aware, new order made to give lidocaine patch to the pts.
[2025-07-16] MEDS: NITROGLYCERIN 0.4 MG SUBL BTL #25 SL (06:25)
[2025-07-16] MEDS: INSULIN LISPRO (AdmeLOG) 1 UNIT/0.01 ML UNIT SC ×3 (07:48→18:02)
[2025-07-16] MEDS: cefTRIAXone/D5w 2gm 2 GM/50 ML BAG IV (08:54)
[2025-07-16] MEDS: GABAPENTIN 300 MG CAPSULE PO ×2 (08:55→20:48)
[2025-07-16] MEDS: LOSARTAN POTASSIUM 25 MG TABLET 50 MG PO (08:55)
[2025-07-16] MEDS: DIAZEPAM 5 MG TABLET PO ×2 (08:55→20:48)
[2025-07-16] MEDS: DOXYCYCLINE 100 MG TABLET PO ×2 (08:55→20:48)
[2025-07-16] MEDS: ZIPRASIDONE 20 MG CAPSULE PO ×2 (08:55→20:48)
[2025-07-16] MEDS: HEPARIN SOD INJ 5000 UNIT/ML VIAL SC ×2 (08:56→20:54)
[2025-07-16 09:28] LABS: Magnesium 1.7 mg/dL (1.6-2.6); Phosphorous 2.4 mg/dL (2.4-5.1)
--- NOTE | 2025-07-16 09:28 | ESPR_ITS ---
<Statement entered by Mustapha Vasquez MD - 07/16/25 14:42> Patient seen and assessed in hospital bed is awake and answering questions appropriately, less combative and denies having any symptoms of typical chest pain. Overnight the patient did have rapid response called for chest pain at which point EKG and troponin were ordered which were negative. There was some concern that the patient was volume overloaded as he was being given IV fluids with underlying CHF (EF 45-50%). As result, patient's IV fluids were stopped and the patient is being given x 1 Lasix 40 mg. Patient has a PICC line scheduled to be inserted Bonds 07/17 for MSSA bacteremia and osteomyelitis. Will continue monitor the patient and expect discharge within the next 24 to 48 hours. I have personally seen and examined the patient. I agree with the resident's assessment and plan as documented below. Mustapha Vasquez DO PGY-2 Internal Medicine - [facility] Documentation for date of: 07/16/25 Subjective Subjective Interval history: Overnight events: Patient had a rapid called him for chest pain. Patient found to be fluid overloaded, improved with Lasix 40 mg IVP. Patient was seen and examined at bedside. AM vitals and labs reviewed. Patient appears to be calmer today. Continues to want to go home. Later had a very long discussion with the patient and his . The patient states that he does not remember stating that he wanted to , stating how he forgot his daughter's name, and how he has to save all the children . Conversations with the patient were extremely circular and the patient would often go into completely unrelated tangents. Stop Neutra-Phos twice daily. Appreciate ID recommendations of Rocephin and Doxy until 08/22. Plan for PICC line placement tomorrow. Will order PT, INR, PTT, CRP, and ESR for tomorrow per ID recs. Gave patient additional Lasix 40 mg IV push. Review of systems otherwise negative except for what is mentioned above. Exam Vital Signs Temp Pulse Resp BP Pulse Ox O2 Del Method O2 Flow Rate 98.5 F 90 18 150/63 H 82 L Room Air 4 07/16/25 08:00 07/16/25 08:55 07/16/25 08:00 07/16/25 08:55 07/16/25 08:00 07/15/25 23:41 07/15/25 04:00 FiO2 91 07/15/25 04:00 Narrative Exam Gen: No acute distress HEENT: NCAT, PERRLOU, Sclera anicteric, conjunctiva noninjected, oral mucosa moist without erythema Neck: Supple, full range of motion, no LAD CV: RRR, no murmurs, rubs or gallops Resp: CTAB/L, no wheezing, rhonchi or rales GI: abdomen soft, bowel sounds noted, no tenderness to palpation, no guarding or rebound tenderness, no organomegaly Skin: clean, dry, no rashes, lesions or ecchymosis Ext: left foot ulcer with serosanguinous output, edema improved. Mild hematoma noted at third distal metatarsal. No gangrene noted. Neuro: A&O x3, CN II- XII intact b/l, no focal neurological deficits Psych: tangential speech Objective Labs 07/17/25 05:33 07/17/25 05:33 Labs: Laboratory Results - last 24 hr 07/15/25 07/16/25 20:00 04:43 WBC 25.0 H 22.5 H RBC 3.63 L 3.47 L Hgb 10.1 L 9.9 L Hct 30.5 L 29.7 L MCV 84 86 MCH 27.8 28.5 MCHC 33.1 33.3 RDW Std Deviation 46.4 H 46.1 H Plt Count 850 H D 574 H D Neut % (Auto) 71 68 Lymph % (Auto) 10 12 [place] % (Auto) 9 10 Eos % (Auto) 1 1 Baso % (Auto) 1 1 Neut # (Auto) 17.8 H 15.4 H Lymph # (Auto) 2.5 2.6 [place] # (Auto) 2.2 H 2.2 H Eos # (Auto) 0.3 0.3 Baso # (Auto) 0.2 0.1 Immature Gran # (Auto) 2.03 H 1.85 H Absolute Nucleated RBC 0.39 H 0.40 H Immature Gran % 8 H 8 H Nucleated RBC % 2 H 2 H Smear Path Review Sent to Pathologist Sodium 138 138 Potassium 3.2 L D 3.3 L Chloride 100 100 Carbon Dioxide 28.8 29.4 Anion Gap 9 9 BUN 11 9 Creatinine 0.8 0.8 Estim Creat Clear Calc 97.0 97.0 eGFR > 60 > 60 BUN/Creatinine Ratio 14 11 L Glucose 177 H 225 H Calculated Osmolality 279 281 Calcium 8.9 8.6 Corrected Calcium 9.1 Magnesium 2.3 Total Bilirubin 0.3 AST 18 ALT 20 Alkaline Phosphatase 226 H D Troponin I < 0.020 Total Protein 6.5 Albumin 3.4 Globulin 3.1 Albumin/Globulin Ratio 1.1 L ABG Interpretation ABG results: 07/09/25 22:40 ABG pH 7.35 ABG pCO2 46 ABG pO2 82 L ABG HCO3 25 ABG O2 Saturation 96 ABG Base Excess -1 Quality Measures Quality Measures VTE prophylaxis and sepsis Current suspected stage: sepsis Possible source: pulmonary, skin/soft tissue and wound Blood cultures ordered: yes Antibiotic ordered: Yes Assessment & Plan Assessment Current Active Medications: Generic Name Dose Route Start Last Admin Trade Name Freq PRN Reason Stop Dose Admin Acetaminophen 650 mg 07/10/25 01:31 07/15/25 09:15 Acetaminophen 325 Mg Tablet PO 08/09/25 01:30 650 mg Q6H PRN Administration Fever >100.4 or pain 1-3 Protocol Albuterol/Ipratropium 3 ml 07/11/25 07:51 Albuterol/Ipratropium (Duoneb) Rt Anya 3 Ml Nebu INH 08/10/25 07:50 Q2HR PRN SHORTNESS OF BREATH OR WHEEZE Dextrose 25 ml 07/10/25 01:36 Dextrose 50%-Water Inj 50 Ml Syringe IV 08/09/25 01:35 Q15MIN PRN BG 50-70 responsive npo pt Dextrose 50 ml 07/10/25 01:36 Dextrose 50%-Water Inj 50 Ml Syringe IV 08/09/25 01:35 Q15MIN PRN BG <50 OR BG <70 & pt unresponsive Diazepam 5 mg 07/10/25 13:30 07/16/25 08:55 Diazepam 5 Mg Tablet PO 07/21/25 13:29 5 mg BID RAFAEL Administration Doxycycline Hyclate 100 mg 07/14/25 11:15 07/16/25 08:55 Doxycycline 100 Mg Tablet PO 07/21/25 11:14 100 mg BID RAFAEL Administration Duloxetine HCl 90 mg 07/10/25 21:00 07/15/25 20:15 Duloxetine Hcl 30 Mg Capsule PO 08/09/25 20:59 90 mg HS RAFAEL Administration Gabapentin 300 mg 07/10/25 21:00 07/16/25 08:55 Gabapentin 300 Mg Capsule PO 08/09/25 20:59 300 mg BID RAFAEL Administration Glucagon 1 mg 07/10/25 01:36 Glucagon Inj 1 Mg Vial IM Q15MIN PRN BG <70, and no IV access Heparin Sodium (Porcine) 5,000 unit 07/10/25 09:00 07/16/25 08:56 Heparin Sod Inj 5000 Unit/Ml Vial SC 07/24/25 08:59 5,000 unit Q12HR RAFAEL Administration Ceftriaxone Sodium/Dextrose 2 gm in 50 mls @ 100 mls/hr 07/14/25 09:44 07/16/25 08:54 Rocephin/D5w 2gm IV 07/21/25 09:43 100 mls/hr QDAY RAFAEL Administration Insulin Degludec 15 unit 07/10/25 21:00 07/15/25 20:15 Insulin Degludec 5 Unit/0.05 Ml (Per 5 Units) SC 08/09/25 20:59 15 unit HS RAFAEL Administration Insulin Human Lispro 0 unit 07/11/25 17:00 07/16/25 07:48 Insulin Lispro (Admelog) 1 Unit/0.01 Ml Unit SC 08/10/25 16:59 3 unit AC RAFAEL Administration Protocol Lamotrigine 100 mg 07/10/25 11:00 07/16/25 08:55 Lamotrigine 100 Mg Tablet PO 08/09/25 10:59 100 mg QDAY RAFAEL Administration Losartan Potassium 50 mg 07/16/25 09:00 07/16/25 08:55 Losartan Potassium 25 Mg Tablet PO 08/15/25 08:59 50 mg QDAY RAFAEL Administration Nitroglycerin 0.4 mg 07/15/25 19:49 07/16/25 06:25 Nitroglycerin 0.4 Mg Subl Btl #25 SL 0.4 mg Q5MIN PRN Administration CHEST PAIN Polyethylene Glycol 17 gm 07/13/25 09:00 07/16/25 08:56 Polyethylene Glycol 17 Gm Packet PO 08/12/25 08:59 Not Given QDAY RAFAEL Sennosides 1 tab 07/13/25 07:30 Senna/Docusate Sod 1 Tab Tablet PO 08/12/25 07:29 QDAY PRN CONSTIPATION Protocol Ziprasidone 20 mg 07/11/25 11:15 07/16/25 08:55 Ziprasidone 20 Mg Capsule PO 08/10/25 11:14 20 mg BID RAFAEL Administration Plan Assessment and Plan: Mr. Loaiza is a 64-year-old male with a past history of T2DM, PAD s/p left fourth toe amputation, s/p splenectomy, hypothyroidism, hypertension, MDD, bipolar disorder, PTSD, who presented to [facility] ED on 07/10 for eliciting left foot pain and shortness of breath. Patient was admitted for sepsis and acute hypoxic respiratory failure. #Sepsis 2/2 #MSSA bacteremia #Osteomyelitis of the third metatarsal #Acute hypoxic respiratory failure 2/2 #Community acquired Pneumonia On admission pt was febrile, tachycardic 103.5, tachypneic 127, leukocytosis, lactate 3. Source likely multifactorial (bilateral pneumonia + diabetic neuropathy and hx of osteomyelitis) Hypoxia 82% RA, improved with O2; CXR: significant diffuse bilateral pneumonia, qSOFA 2 (RR>22, hypoxia) Osteomyelitis on left foot, amputation of fourth toe, there is an open wound on the plantar area corresponding to the third toe. On examination there is a left foot nonhealing wound and redness worsening over the past few days. Foot X-Ray: Cortical bone erosions in the amputated 3rd metatarsal, osteomyelitis distal 3rd metatarsal. Foot MRI: amputations distal 3rd metatarsal, proximal 4th digit, Soft tissue infection about the distal third metatarsal with cortical bone destruction involving the distal aspect of the third metatarsal Venous doppler left leg: Negative for DVT; 06/08: Blood culture grew Staphylococcus aureus in 2/2 bottle TTE 07/11/25:Estimated EF at 45-50 %, no vegetations Received Vancomycin (07/10-07/13) Plan - Continue ceftriaxone 2 mg and doxycycline 100 mg BID (07/14-08/22) - Repeat blood cultures drawn 07/12, no growth - Will likely need PICC line placement on 07/17 - Surgery consulted: debridement or drainage needed. Continue IV antibiotics - Wound care - Infectious disease consulted, appreciate recommendations - PT/INR, PTT, ESR, and CRP ordered for 07/17 AM, pending #Peripheral Artery Disease Duplex sonography 07/09 shows severe peripheral obstructive arterial disease left lower extremity. Diminished distal pulses present on examination. Patient on cilostazol and aspirin at home Plan - Continue to monitor - Smoking cessation counseling - Cilostazol contraindicated patient has heart failure with moderately reduced ejection fraction #Heart failure with moderately reduced ejection fraction, EF 45 to 50% #Global left ventricular systolic function mildly decreased, systolic heart failure Patient not in any acute exacerbation, echocardiogram obtained for MSSA bacteremia, incidental finding. TTE 07/11:normal LV size, wall thickness. Normal left ventricular diastolic function. Estimated EF at 45-50 %. Global left ventricular systolic function is mildly decreased. The RV is normal in size and systolic function. Trace MR and TR. Dilated IVC. Mild PI. Plan: - Monitor fluid status - Outpatient cardiology workup - Lasix 40 mg IVP one time dose 07/16 #Acute kidney injury (resolved) On admission pt Cr 1.8 with baseline 0.9. Likely prerenal secondary to sepsis. Patient recieved 2L NS in ED. Renal panel is within normal limit. Plan -Avoid nephrotoxins -Monitor renal panel -Renally dosed medications - Continue to monitor CMP #Non-insulin depended Diabetes Mellitus II #Diabetic neuropathy On admission glucose 256, A1c 9.4. Hx of neuropathy manage with home medication gabapentin, Plan - insulin sliding scale step 1 - continue degludec 15 units HS - continue home gabapentin 300mg PO BID #Bipolar disorder #Major Depressive Disorder #Post-traumatic stress disorder Patient has a history of bipolar disorder, major depressive disorder, and PTSD. On 07/10, the patient was agitated and aggressive towards the staff as well as noted to have suicidal ideation. Patient had consistent suicidal ideation throughout hospitalization afterwards. On 07/16, patient noted to have forgotten about suicidal ideation and appears to have signs of circular thinking, excessively tangential speech, and delusions of grandeur that was not present previously. Plan - Lamotrigine 100 mg PO - Duloxetine 90mg - Midazolam 2mg IVP PRN - Diazepam 5mg for agitation - Ziprasidone 20 mg twice daily #Hypothyroidism Per chart review pt has history of hypothyroidism managed with home levothyroxine 75 mg p.o. 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 Likely secondary to poor oral intake. - Continue to monitor phosphorus, replenish when necessary - Neutraphos 1 packet BID from 07/14 to 07/16 DVT Prophylaxis: Heparin GI Prophylaxis: N/A Bowel: Miralax and Senna Diet: Dysphagia 2, mech altered, cardiac, consistent carb low, and Glucerna shake [place]: N/A Lines: Peripheral IV Antibiotics: Ceftriaxone and Doxycycline Code Status: DNR Reason for Hospitalization: Sepsis and AHRF Other Barriers to Discharge: Possible PICC line 07/17 Patient plan of care was discussed with the senior resident Dr. Vasquez (PGY- 2) and attending physician Dr[address] Wiley Christy, PGY1 Attending Provider Attestation/Addendum I, Janis Jama, DO, attest that I was physically present for the rojo portions of the service and evaluated the patient with the resident and I reviewed and discussed the case with the resident and agree with the resident's findings and plans of care as documented above Patient seen and evaluated this AM. Patient again states he wants to go home, but is more calm and compliant. Will need IV abx on discharge and plan for picc line placement in AM. Leukocytosis appears reactive. Patient has been afebrile otherwise. Mood is improved, but speech remains tangential.
--- NOTE | 2025-07-16 10:18 | PD.IDPROG ---
Subjective Subjective Interval history: rocephin and doxy ok . bc staph aureus is ox s. Exam Vital Signs Temp Pulse Resp BP Pulse Ox O2 Del Method O2 Flow Rate 98.5 F 90 18 150/63 H 82 L Room Air 4 07/16/25 08:00 07/16/25 08:55 07/16/25 08:00 07/16/25 08:55 07/16/25 08:00 07/15/25 23:41 07/15/25 04:00 FiO2 91 07/15/25 04:00 Narrative Exam loquacious. ischemic appearing L mid foot noted. Objective - Internal Medicine Labs 07/16/25 04:43 07/16/25 04:43 Labs: Laboratory Results - last 24 hr 07/15/25 07/16/25 20:00 04:43 WBC 25.0 H 22.5 H RBC 3.63 L 3.47 L Hgb 10.1 L 9.9 L Hct 30.5 L 29.7 L MCV 84 86 MCH 27.8 28.5 MCHC 33.1 33.3 RDW Std Deviation 46.4 H 46.1 H Plt Count 850 H D 574 H D Neut % (Auto) 71 68 Lymph % (Auto) 10 12 [place] % (Auto) 9 10 Eos % (Auto) 1 1 Baso % (Auto) 1 1 Neut # (Auto) 17.8 H 15.4 H Lymph # (Auto) 2.5 2.6 [place] # (Auto) 2.2 H 2.2 H Eos # (Auto) 0.3 0.3 Baso # (Auto) 0.2 0.1 Immature Gran # (Auto) 2.03 H 1.85 H Absolute Nucleated RBC 0.39 H 0.40 H Immature Gran % 8 H 8 H Nucleated RBC % 2 H 2 H Smear Path Review Sent to Pathologist Sodium 138 138 Potassium 3.2 L D 3.3 L Chloride 100 100 Carbon Dioxide 28.8 29.4 Anion Gap 9 9 BUN 11 9 Creatinine 0.8 0.8 Estim Creat Clear Calc 97.0 97.0 eGFR > 60 > 60 BUN/Creatinine Ratio 14 11 L Glucose 177 H 225 H Calculated Osmolality 279 281 Calcium 8.9 8.6 Corrected Calcium 9.1 Phosphorus 2.4 Magnesium 2.3 1.7 Total Bilirubin 0.3 AST 18 ALT 20 Alkaline Phosphatase 226 H D Troponin I < 0.020 Total Protein 6.5 Albumin 3.4 Globulin 3.1 Albumin/Globulin Ratio 1.1 L ABG Interpretation ABG results: 07/09/25 22:40 ABG pH 7.35 ABG pCO2 46 ABG pO2 82 L ABG HCO3 25 ABG O2 Saturation 96 ABG Base Excess -1 Assessment & Plan A&P Narrative possible abscess of foot noted on imaging with pos bc noted, gpc 2/2 in ED, same time or nearly so. neg on f/u 07/12 dm II. a1c 9.4 control dm. ok for rocephin and doxy thru 08/22 as day 1 is 07/12 will see again prn please check weekly renal panel, esr on iv rx and remove line at end of rx wbc is non specific. Time Spent With Patient Time: Total time spent is greater than 50% in coordination of care (as documented) at patient's floor/unit and/or counseling patient:
[2025-07-16] MEDS: Magnesium Sulfate 4 GM Ivpb 4 GM/50 ML BAG IV (10:39)
--- NOTE | 2025-07-16 15:09 | PC.SS ---
Rounding note: pending piccline tomorrow, MH evaluation once medically clear, possible HH.
[2025-07-16] MEDS: ACETAMINOPHEN 325 MG TABLET 650 MG PO (19:38)
[2025-07-16] MEDS: DULoxetine HCL 30 MG CAPSULE 90 MG PO (20:48)
[2025-07-16] MEDS: INSULIN DEGLUDEC 5 UNIT/0.05 ML (PER 5 UNITS) 15 UNIT SC (20:56)
[2025-07-17] VITALS (11 sets, daily range): BP systolic 115–171; BP diastolic 61–98; PULSE 70–99; RESP 14–22; TEMP 36.1–37; O2SAT 86–98; BMI 30.6
[2025-07-17 05:47] LABS: Basophils # (Auto) 0.2 Thou/mm3 (0.0-0.2); Basophils % (Auto) 1 % (0-2.5); Eosinophils # (Auto) 0.5 Thou/mm3 (0.0-0.5); Eosinophils % (Auto) 2 % (0-10); Hematocrit 31.3 % (41.0-53.0); Hemoglobin 10.3 g/dL (13.5-16.0); Immature Granulocytes Auto 1.71 Thou/mm3 (0.00-0.00); Lymphocytes # (Auto) 3.6 Thou/mm3 (1.0-4.8); Lymphocytes % (Auto) 16 % (10-50); Mean Corpuscular HGB Conc 32.9 g/dl (31.0-37.0); Mean Corpuscular Hemoglobin 28.2 pg (25.0-35.0); Mean Corpuscular Volume 86 fL (80-100); Monocytes # (Auto) 1.8 Thou/mm3 (0.0-0.8); Monocytes % (Auto) 8 % (0-12); Neutrophils # (Auto) 14.0 Thou/mm3 (1.8-7.7); Neutrophils % (Auto) 65 % (37-80); Nucleated Red Blood Cell # 0.43 Thou/mm3 (0.00-0.00); Nucleated Red Blood Cell % 2 /100 WBC (0); Platelet Count 737 Thou/mm3 (140-440); RDW Standard Deviation 46.6 fL (35.1-43.9); Red Blood Count 3.65 Miln/mm3 (4.50-5.90); White Blood Count 21.7 Thou/mm3 (3.8-10.6)
[2025-07-17 06:21] LABS: INR 1.2 (0.9-1.3); Partial Thromboplastin Time 24.7 Seconds (22.0-36.0); Prothrombin Time 12.8 Seconds (9.0-12.2)
[2025-07-17 06:22] LABS: Alanine Aminotransferase 14 U/L (10-49); Albumin, Serum 3.5 gm/dL (3.4-4.8); Albumin/Globulin Ratio 1.3 (1.2-2.2); Alkaline Phosphatase 198 U/L (46-116); Anion Gap 11 (7-16); Aspartate Amino Transferase 13 U/L (0-34); BUN/Creatinine Ratio 11 Ratio (12-20); Bilirubin,Total 0.2 mg/dL (0.3-1.2); Blood Urea Nitrogen 9 mg/dL (9-23); C-Reactive Protein 9.2 mg/dL (0.0-0.9); Calcium 9.3 mg/dL (8.3-10.6); Calcium (Corrected) 9.7 mg/dL (8.5-10.1); Carbon Dioxide 29.5 mMol/L (20.0-31.0); Chloride 102 mMol/L (98-107); Creatinine (Component) 0.8 mg/dL (0.6-1.3); Estimated Creatinine Clearance 97.2 mL/min (>60); Globulin 2.8 gm/dL (2.3-3.5); Glucose 201 mg/dL (74-106); Magnesium 1.6 mg/dL (1.6-2.6); Osmolality,Calculated 287 (275-295); Phosphorous 3.0 mg/dL (2.4-5.1); Potassium 3.7 mMol/L (3.4-5.1); Sodium 142 mMol/L (136-145); Total Protein 6.3 gm/dL (5.7-8.2); eGFR > 60 See Note
[2025-07-17] MEDS: NITROGLYCERIN 0.4 MG SUBL BTL #25 SL (06:46)
--- NOTE | 2025-07-17 06:49 | EVENTNT_ITS ---
<Statement entered by Mustapha Vasquez MD - 07/17/25 16:25> As noted below, rapid response was called for patient exhibiting chest pain. Patient airway/breathing/circulation assessed and all 3 were patent during time of examination. Patient was awake and answering questions stating that he was having sharp chest pain without changes in inspiration; moreover, lactic acid, troponin, EKG and chest x-ray did not show any concerning findings. Patient clinically improved after a rapid and stated he no longer had chest pain. Will continue to monitor the patient for any acute changes. I have personally seen and examined the patient. I agree with the resident's event note as documented below. Mustapha Vasquez DO PGY-2 Internal Medicine - [facility] Documentation for date of: 07/17/25 Event Note Event Note: Rapid Response Room:?362 Time: 06:45 Reason for Call:?Chest pain, SOB Patient presentation:?Patient was laying in bed slightly diaphoretic. Patient did not seem to be in any acute distress at the time. Did report being very anxious and how he had a night terror. Patient does note chest pain that feels like a horse sitting on his chest. Vital signs during rapid response temperature 97.6 ?F, blood pressure 169/84, heart rate 84, respiratory rate 21, O2 saturation 96% on 2 L nasal cannula. Assessment:?Chest pain and shortness of breath is likely secondary to anxiety and pulmonary congestion from fluid overload. New orders:? Troponin Lactic acid EKG Chest x-ray BMP Lasix 40 mg IV push Patient was discussed with the attending, Dr. Jama, and senior resident Dr. Vasquez , PGY-2 . Alfonso Christy, PGY-1
[2025-07-17] MEDS: ALBUTEROL/IPRATROPIUM (Duoneb) RT SOL 3 ML NEBU INH (06:50)
--- NOTE | 2025-07-17 06:51 | EKG_ITS ---
[facility] Test Date: 2025-07-17 Pat Name: PROMISE MIKE Department: Room: S362A Gender: Male Van Loader: SHERI : 1960 Requested By: Alfonso Christy Order Number: [id number] Reading MD: Alfonso Christy Measurements Intervals [place] Rate: 81 P: 44 [place]: 172 QRS: -57 QRSD: 96 T: 45 QT: 379 QTc: 442 Interpretive Statements SINUS RHYTHM ANTERIOR MYOCARDIAL INFARCTION , PROBABLY RECENT INFERIOR MYOCARDIAL INFARCTION , PROBABLY OLD ACUTE OR Compared to ECG 07/15/2025 19:53:50 No significant changes /[id number]/S0/[id number].pdf
--- NOTE | 2025-07-17 06:57 | XR_ITS ---
Examination: AP chest single view TECHNIQUE: AP portable semiupright chest single view Date and time: July 17, 2025 0725 hours, comparison July 15, 2025 INDICATIONS: Rapid response, chest pain shortness of breath today. FINDINGS: Mild prominence cardiac contour Extensive pulmonary edema and/or pneumonia in the lung argueta Prominent osteopenia IMPRESSION: Extensive pneumonia and/or pulmonary edema in the lung argueta, clinical correlation advised
[2025-07-17 07:09] LABS: Lactate (Lactic Acid) 1.7 mMol/L (0.4-2.0)
[2025-07-17 07:29] LABS: B-Type Natriuretic Peptide 236 pg/mL (0-100)
[2025-07-17] MEDS: INSULIN LISPRO (AdmeLOG) 1 UNIT/0.01 ML UNIT SC ×2 (07:37→11:55)
[2025-07-17] MEDS: FUROSEMIDE INJ 10 MG/ML 4ML VIAL 40 MG IVP (07:37)
[2025-07-17 07:39] LABS: Troponin I < 0.020 ng/mL (0.0-0.045)
--- NOTE | 2025-07-17 08:00 | XR_ITS ---
Examination: Ultrasound-guided needle placement right basilic vein. Dual-lumen central line placement (PICC line). Fluoroscopy AP chest, portable, single view Exam date and time:July 17, 2025 0951 hours INDICATIONS: Need for long-term intravenous antibiotic therapy for osteomyelitis A timeout was completed verifying correct patient, procedure, site, positioning Informed consent provided Technique: The patient's site was prepped and draped in sterile fashion. Maximum Sterile Barrier Technique used including cap, mask, sterile gown, sterile gloves, and sterile full body drape. If ultrasound technique used: sterile gel and sterile probe covers. Hand Hygiene performed using proper scrub, soap and water, or alcohol-based hand rub. Site right portable apparatus utilized for localization and confirmation of patent left basilic vein Utilizing ultrasonographic guidance successful 21-gauge needle puncture into the left basilic vein Ultrasound images recorded and stored. 5 cc 1% lidocaine administered for local anesthetic. Successful micropuncture with a 21-gauge needle is performed. 0.18 wire guide is then introduced into the SVC under fluoroscopic guidance. Dual-lumen catheter dilator is then introduced, followed by the catheter in the SVC and proper position under fluoroscopic guidance. Successful aspiration of blood and flushing with heparinized saline is then performed in the 2 venous limbs. The catheter sutured in place. Findings: Under fluoroscopy, the tip of the catheter is in good position in the vena cava. Portable chest x-ray, post line placement is ordered. Estimated blood loss 3 cc The patient tolerated the procedure well and was in stable and satisfactory condition at completion of the procedure Impression: Successful ultrasound-guided needle placement left basilic vein Successful placement of dual lumen central line, percutaneous Fluoroscopy 0.1 minute radiation dose 0.54 milligray 1 spot fluoroscopic chest film. AP chest completion procedure demonstrates satisfactory position central line. May use central line.
[2025-07-17] MEDS: cefTRIAXone/D5w 2gm 2 GM/50 ML BAG IV (08:35)
[2025-07-17] MEDS: ZIPRASIDONE 20 MG CAPSULE PO (08:36)
[2025-07-17] MEDS: GABAPENTIN 300 MG CAPSULE PO (08:36)
[2025-07-17] MEDS: POLYETHYLENE GLYCOL 17 GM PACKET PO (08:36)
[2025-07-17] MEDS: LOSARTAN POTASSIUM 25 MG TABLET 50 MG PO (08:36)
[2025-07-17] MEDS: DIAZEPAM 5 MG TABLET PO (08:36)
[2025-07-17] MEDS: DOXYCYCLINE 100 MG TABLET PO (08:36)
[2025-07-17] MEDS: HEPARIN SOD INJ 5000 UNIT/ML VIAL SC (08:36)
[2025-07-17 09:30] LABS: Sed Rate (ESR) 34 mm/hr (0-20)
--- NOTE | 2025-07-17 09:39 | PD.RESPRO ---
Documentation for date of: 07/17/25 Exam Vital Signs Temp Pulse Resp BP Pulse Ox O2 Del Method O2 Flow Rate 97.4 F 89 20 171/88 H 92 L Nasal Cannula 2 07/17/25 07:29 07/17/25 08:36 07/17/25 07:29 07/17/25 08:36 07/17/25 07:29 07/17/25 07:29 07/17/25 07:29 FiO2 91 07/15/25 04:00 Objective Labs 07/17/25 05:33 07/17/25 05:33 Labs: Laboratory Results - last 24 hr 07/17/25 07/17/25 05:33 06:56 WBC 21.7 H RBC 3.65 L Hgb 10.3 L Hct 31.3 L MCV 86 MCH 28.2 MCHC 32.9 RDW Std Deviation 46.6 H Plt Count 737 H D Neut % (Auto) 65 Lymph % (Auto) 16 [place] % (Auto) 8 Eos % (Auto) 2 Baso % (Auto) 1 Neut # (Auto) 14.0 H Lymph # (Auto) 3.6 [place] # (Auto) 1.8 H Eos # (Auto) 0.5 Baso # (Auto) 0.2 Immature Gran # (Auto) 1.71 H Absolute Nucleated RBC 0.43 H Immature Gran % 8 H Nucleated RBC % 2 H ESR 34 H PT 12.8 H INR 1.2 APTT 24.7 Sodium 142 Potassium 3.7 Chloride 102 Carbon Dioxide 29.5 Anion Gap 11 BUN 9 Creatinine 0.8 Estim Creat Clear Calc 97.2 eGFR > 60 BUN/Creatinine Ratio 11 L Glucose 201 H Calculated Osmolality 287 Lactic Acid 1.7 Calcium 9.3 Corrected Calcium 9.7 Phosphorus 3.0 Magnesium 1.6 Total Bilirubin 0.2 L AST 13 ALT 14 Alkaline Phosphatase 198 H D Troponin I < 0.020 C-Reactive Prot, Quant 9.2 H B-Natriuretic Peptide 236 H Total Protein 6.3 Albumin 3.5 Globulin 2.8 Albumin/Globulin Ratio 1.3 ABG Interpretation ABG results: 07/09/25 22:40 ABG pH 7.35 ABG pCO2 46 ABG pO2 82 L ABG HCO3 25 ABG O2 Saturation 96 ABG Base Excess -1 Quality Measures Quality Measures VTE prophylaxis and sepsis Possible source: pulmonary, skin/soft tissue and wound Blood cultures ordered: yes Assessment & Plan Assessment Current Active Medications: Generic Name Dose Route Start Last Admin Trade Name Anthony PRN Reason Stop Dose Admin Acetaminophen 650 mg 07/10/25 01:31 07/16/25 19:38 Acetaminophen 325 Mg Tablet PO 08/09/25 01:30 650 mg Q6H PRN Administration Fever >100.4 or pain 1-3 Protocol Albuterol/Ipratropium 3 ml 07/11/25 07:51 07/17/25 06:50 Albuterol/Ipratropium (Duoneb) Rt Anya 3 Ml Nebu INH 08/10/25 07:50 3 ml Q2HR PRN Administration SHORTNESS OF BREATH OR WHEEZE Dextrose 25 ml 07/10/25 01:36 Dextrose 50%-Water Inj 50 Ml Syringe IV 08/09/25 01:35 Q15MIN PRN BG 50-70 responsive npo pt Dextrose 50 ml 07/10/25 01:36 Dextrose 50%-Water Inj 50 Ml Syringe IV 08/09/25 01:35 Q15MIN PRN BG <50 OR BG <70 & pt unresponsive Diazepam 5 mg 07/10/25 13:30 07/17/25 08:36 Diazepam 5 Mg Tablet PO 07/21/25 13:29 5 mg BID RAFAEL Administration Doxycycline Hyclate 100 mg 07/14/25 11:15 07/17/25 08:36 Doxycycline 100 Mg Tablet PO 07/21/25 11:14 100 mg BID RAFAEL Administration Duloxetine HCl 90 mg 07/10/25 21:00 07/16/25 20:48 Duloxetine Hcl 30 Mg Capsule PO 08/09/25 20:59 90 mg HS RAFAEL Administration Gabapentin 300 mg 07/10/25 21:00 07/17/25 08:36 Gabapentin 300 Mg Capsule PO 08/09/25 20:59 300 mg BID RAFAEL Administration Glucagon 1 mg 07/10/25 01:36 Glucagon Inj 1 Mg Vial IM Q15MIN PRN BG <70, and no IV access Heparin Sodium (Porcine) 5,000 unit 07/10/25 09:00 07/17/25 08:36 Heparin Sod Inj 5000 Unit/Ml Vial SC 07/24/25 08:59 5,000 unit Q12HR RAFAEL Administration Ceftriaxone Sodium/Dextrose 2 gm in 50 mls @ 100 mls/hr 07/14/25 09:44 07/17/25 08:35 Rocephin/D5w 2gm IV 07/21/25 09:43 100 mls/hr QDAY RAFAEL Administration Insulin Degludec 15 unit 07/10/25 21:00 07/16/25 20:56 Insulin Degludec 5 Unit/0.05 Ml (Per 5 Units) SC 08/09/25 20:59 15 unit HS RAFAEL Administration Insulin Human Lispro 0 unit 07/11/25 17:00 07/17/25 07:37 Insulin Lispro (Admelog) 1 Unit/0.01 Ml Unit SC 08/10/25 16:59 2 unit AC RAFAEL Administration Protocol Lamotrigine 100 mg 07/10/25 11:00 07/17/25 08:35 Lamotrigine 100 Mg Tablet PO 08/09/25 10:59 100 mg QDAY RAFAEL Administration Losartan Potassium 50 mg 07/16/25 09:00 07/17/25 08:36 Losartan Potassium 25 Mg Tablet PO 08/15/25 08:59 50 mg QDAY RAFAEL Administration Polyethylene Glycol 17 gm 07/13/25 09:00 07/17/25 08:36 Polyethylene Glycol 17 Gm Packet PO 08/12/25 08:59 17 gm QDAY RAFAEL Administration Sennosides 1 tab 07/13/25 07:30 Senna/Docusate Sod 1 Tab Tablet PO 08/12/25 07:29 QDAY PRN CONSTIPATION Protocol Ziprasidone 20 mg 07/11/25 11:15 07/17/25 08:36 Ziprasidone 20 Mg Capsule PO 08/10/25 11:14 20 mg BID RAFAEL Administration
[2025-07-17] MEDS: HEPARIN SOD LOCK SYR 100 UNIT/ML 500 UNIT STFIELD (10:15)
[2025-07-17] MEDS: LIDOCAINE HCL 1% 20 ML VIAL INFL (10:16)
--- NOTE | 2025-07-17 11:41 | ESDS_ITS ---
<Statement entered by Janis Jama DO - 07/18/25 08:50> I, Janis Jama DO, attest that I was physically present for the rojo portions of the service and evaluated the patient with the resident and I reviewed and discussed the case with the resident and agree with the resident's findings and plans of care as documented above <Statement entered by Mustapha Vasquez MD - 07/17/25 16:34> 64-year-old male with past medical history of poorly controlled insulin- dependent diabetes, bipolar disorder, psychiatric conditions, hypothyroidism presented to the ED with lower extremity (third metatarsal of left foot) osteomyelitis requiring IV antibiotics. General surgery was consulted for possible surgery; however, upon assessment recommendation was to continue with IV antibiotics. During admission, patient reported to have suicidality to primary care team. There were several episodes of aggressive behavior as a result ziprasidone was started with beneficial outcome. Patient had several episodes of chest pain which which were ruled out to be secondary to cardiac etiology with repeat troponins, EKG and lactic acid being negative. Chest x-ray did show heart failure exacerbation in which point patient was given IV diuretics with improvement in symptoms. Patient received PICC line on 07/17 and will complete IV ceftriaxone 2 g and doxycycline antibiotic regimen until 08/22/2025 as per infectious disease recommendations. Will continue ziprasidone and discontinue hydroxyzine upon discharge due to interaction profile. Crisis team reevaluated the patient upon medical clearance and noted that the patient did not have any suicidality and cleared the patient for safe discharge. I have personally seen and examined the patient. I agree with the resident's discharge summary as documented below. Mustapha Vasquez DO PGY-2 Internal Medicine - GME Planned Discharge Date 07/17/25 DS: Providers Provider Date of admission: 07/10/25 01:58 Primary care physician: Physician No Primary/Family Admitting Provider: Nadir Godfrey MD Attending Provider on Admission: Janis Jama DO Consults: 07/10/25 01:40 Referral Wound Care Routine Comment: 07/10/25 01:43 Consult to General Surgery Stat Comment: Left lower extremity osteomyelitis Consulting Provider: Kartik Aragon 07/11/25 08:28 Consult to Infectious Diseases Routine Comment: Osteomyelitis of left foot Consulting Provider: John Abebe Attending Provider on DC: Janis Jama DO Discharging Provider: Alfonso Christy, RESIDENT DS: Diagnosis Problem List Completed Was Problem List Reviewed/Reconciled?: Yes Hospital Course Hospital Course Hospital course: Reason for hospitalization:?Osteomyelitis Summary: This patient is a 64-year-old male with past medical history of T2DM, PAD s/p amputation of left fourth toe, s/p splenectomy 2022, hypothyroidism, HTN, MDD, bipolar disorder, PTSD, who presented to [facility] ED on 07/10 for left foot pain and shortness of breath. The patient was admitted for sepsis and acute hypoxic respiratory failure. The patient noted that he had increased redness and pain 2 days prior to seeking care at [facility] ED and shortness of breath. In the ED, he was noted to have a fever of 103.5, heart rate of 177, tachypnea, and hypoxia of 82% that improved with O2. Chest x-ray showed diffuse bilateral pneumonia and foot x-ray showed osteomyelitis of distal third metatarsal at his plantar ulcer site. The patient was given IV antibiotics and general surgery was consulted, however general surgery did not believe that incision and drainage was necessary at this time, and the patient should recover with just IV antibiotics. Infectious disease was consulted, and recommended IV antibiotics until 08/22 as the patient also had bacteremia. Patient did have rapid response was called on him for chest pain, which was noted to be associated with fluid overload in the lungs and significant anxiety with night terrors. Throughout the hospitalization, the patient was noted to have active suicidal ideation and had attempted self-harm by repeatedly hitting his head on the window. The patient also became excessively aggressive towards his during his hospitalization. However, patient appeared to have significant change in behavior on 07/16 and became excessively tangential in speech and had delusions of saving the children . The patient also expressed that he had no recollection whatsoever about wanting to and harming himself. PICC line was placed on 07/17 and patient had stable labs and stable vitals. Patient was cleared by crisis team to discharge back home with home health. Patient is to continue IV ceftriaxone 2 g and doxycycline until 08/22. Discharge Recommendations: - Follow up with PCP within 1 week of discharge - Continue rest of medications as previously prescribed - Return to the ED or call EMS if symptoms return and/or worsen - Please take ceftriaxone 2gm via PICC line once a day and Doxycycline 100mg by mouth twice a day until 08/22/2025 for foot infection. DC picc line once regimen is completely. Weekly ESR, CBC, renal panel during duration of treatment - Please take Insulin degludec 15 u at night and monitor your blood sugar as directed - Please take Geodon 20mg by mouth twice a day; follow-up with your PCP and ask for a psychiatry referral - Stop taking Hydroxyzine HCL 25mg by mouth If you don't have a PCP, you can make an appointment at the [facility]: [address] [place] [address] Hospital Diagnoses: #Sepsis #MSSA bacteremia #Osteomyelitis of third metatarsal #Acute hypoxic respiratory failure #Commune acquired pneumonia #Peripheral artery disease #HFrEF, 45 to 50% #Global left ventricular systolic function mildly decreased #MARISOL #Vhb-duvhhij-mgvfmzwpb type 2 diabetes mellitus #Diabetic nephropathy #Bipolar disorder #Major depressive disorder #Posttraumatic stress disorder #Hypothyroidism #Primary hypertension #Status post splenectomy #Hypophosphatemia Patient plan of care was discussed with the senior resident Dr. Vasquez (PGY- 2) and attending physician Dr. Jama. Alfonso Christy, PGY-1 Status at Discharge Overall status at discharge: patient is back to baseline Time Spent with Patient Time attestation: Total time spent providing and/or coordinating discharge services: Time spent: Greater than 30 minutes Home Health Home Health Referral Orders: 07/16/25 11:19 Home Health Referral Routine Reason For Exam: osteomyelitis Home-Bound The patient must either because of illness or injury, need the aid of supportive devices such as crutches, canes, wheelchairs, and walkers; the use of special transportation; or the assistance of another person in order to leave their place of residence; OR have a condition such that leaving his or her home is medically contraindicated. In addition, the patient also meets the following criteria: patient is normally unable to leave the home and leaving home requires considerable taxing effort. Addendum to Home Health Certification Practitioner's Certification: I certify that the patient has been under my care in the hospital and the care of attending physician (see below). We had a sjdt-hy-mhge encounter on (see date below). My clinical findings indicate that the patient is home bound per the above criteria and the Home Health Services noted in these orders are medically necessary. The primary reason for the fsqd-en-wuva encounter is related to the fact that the patient requires home health services. Date Certifying Sxro-gj-Dyxw Physician Encounter: 08/10/25 Physician's Name who will Assume Oversight for Services: Tony Gardner Physician's Phone No.who will Assume Oversight for Service: PUBLICATIONS INSPECTOR - Community Resources: No PT to Evaluate: Yes PT to evaluate and provide a treatmnet plan to increase patient's mobility and strength. Wound Care: Yes Home Health RN - Wound Care Order: as per wound care nurse IV Therapy: Yes IV Medication: Ceftriaxone IV Dose: 1g IV Frequency: Daily IV Stop Date: 08/22/25 Discontinue PICC Line Once Treatment Complete: Yes: weekly renal panel, esr RN Safety Evaluation: Yes RN to evaluate and create a plan of care that will produce positive outcomes. Palliative Treatment: No Palliative treatment and evaluate the need for hospice. Home Health Aide - Personal Care: Yes Home Health Aide to assist with any ADL's. Exam Vital Signs Temp Pulse Resp BP Pulse Ox O2 Del Method O2 Flow Rate 97.4 F 84 14 166/76 H 97 Nasal Cannula 2 07/17/25 07:29 07/17/25 10:28 07/17/25 10:28 07/17/25 10:28 07/17/25 10:28 07/17/25 10:28 07/17/25 10:28 FiO2 91 07/15/25 04:00 Narrative Exam Physical Exam: General: Alert, no acute distress. Skin: Warm, dry, intact. Head: Normocephalic, atraumatic. Eye: Normal conjunctiva, PERRL. Cardiovascular: Regular rate and rhythm, no murmur, +S1/S2. Respiratory: Lungs are clear to auscultation, respirations unlabored, no crackles, no wheezing. Gastrointestinal: Soft, nontender, non-distended. No guarding or rebound tenderness. Extremities: No edema, no cyanosis, no clubbing. Pedal ulcer site dry blood Neuro: No focal deficits observed. Conversant, moving all extremities. No overt cerebellar signs/incoordination. Psychiatric: Cooperative. Tangential, easily distractable, delusions of grandeur Discharge Plan Plan Patient Disposition: Home w/HOME HEALTH Patient condition on transfer: Stable Care Plan Goals: Please take ceftriaxone 2gm via PICC line once a day and Doxycycline 100mg by mouth twice a day until 08/22/2025 for foot infection. DC picc line once regimen is completely. Weekly ESR, CBC, renal panel during duration of treatment Please take Insulin degludec 15 u at night and monitor your blood sugar as directed Please take Geodon 20mg by mouth twice a day; follow-up with your PCP and ask for a psychiatry referral Stop taking Hydroxyzine HCL 25mg by mouth Continue all other home medications Please follow-up with your PCP within 1 week of discharge or follow-up with the residency clinic at [address] [place] [address] tel: If your symptoms worsen or if you develop new chest pain, shortness of breath, dizziness or bleeding - please come back to the ED immediately. Prescriptions/Referrals Prescriptions/Med Rec: New doxycycline hyclate 100 mg Tablet 100 mg PO BID 36 Days Qty: 72 0RF insulin degludec 100 unit/mL (3 mL) insulin pen 15 unit subcut QPM Qty: 15 3RF (DME) blood-glucose meter Kit See Rx Instructions .Route Qty: 1 0RF Rx Instructions: As directed (DME) Blood Glucose Test Strip See Rx Instructions .Route Qty: 50 2RF Rx Instructions: Wash and dry your hands, then insert a new test strip into your meter. After pricking your fingertip with a lancet, apply a drop of blood to the test strip (DME) lancets [facility] [place] See Rx Instructions .Route Qty: 100 2RF Rx Instructions: Wash your hands and the chosen finger, then prepare the device by inserting a new, sterile lancet and adjusting the depth setting. Place the device firmly against the side of the fingertip and press the release button to obtain a blood drop. Apply gentle pressure from the palm to the fingertip to form the drop, then apply it to your blood test strip. Discard the used lancet in a sharps disp osal container (DME) FreeStyle Veronica 3 Plus Sensor Device See Rx Instructions .Route Qty: 2 0RF Rx Instructions: As directed (DME) FreeStyle Veronica 3 [place] Misc See Rx Instructions .Route Qty: 1 0RF Rx Instructions: As directed ziprasidone HCl 20 mg Capsule 20 mg PO BID 30 Days Qty: 60 0RF Continued levothyroxine 75 mcg Tablet 75 mcg PO QDAY Qty: 0 gabapentin [Neurontin] 300 MG capsule 600 mg PO QAM Qty: 0 hydrochlorothiazide 25 MG tablet 25 mg PO QAM Qty: 0 gemfibrozil [Lopid] 600 MG tablet 600 mg PO BID Qty: 0 cyclobenzaprine 10 mg Tablet 10 mg PO HS Qty: 0 glyburide-metformin 5-500 mg Tablet 1 tab PO BID Qty: 0 Stool Softener 50 mg Capsule 50 mg PO QDAY Qty: 30 carvedilol [Coreg] 3.125 MG tablet 3.125 mg PO BID Qty: 60 lamotrigine [Lamictal] 100 MG tablet 100 mg PO QDAY Qty: 30 Januvia 100 MG tablet 100 mg PO QDAY Qty: 30 cilostazol 50 MG tablet 50 mg PO BID Qty: 0 gabapentin 300 mg capsule 300 mg PO HS acetaminophen-codeine 300-60 mg Tablet 1 tab PO PRN PRN (Reason: Pain) diazepam 5 mg tablet 5 mg PO BID duloxetine 30 mg capsule,delayed release(DR/EC) 30 mg PO HS amitriptyline 75 mg tablet 75 mg PO HS aspirin 81 mg tablet,delayed release (DR/EC) 81 mg PO QDAY Discontinued duloxetine [Cymbalta] 60 MG capsule,delayed release(DR/EC) 60 mg PO QAM Qty: 0 Levemir U-100 Insulin 100 U/ML solution 40 unit Sub-Q HS Qty: 0 hydroxyzine HCl 25 mg Tablet 25 mg PO PRN PRN (Reason: Itching) Referrals: No Primary/Family,Physician [Primary Care Provider] - Patient/Caregiver Discharge Instructions Education Materials: Diabetes: Exams and Tests, Diabetes: Meal Planning, Diabetes PAD Print Language: Qatari Stand Alone Forms: Shirley Award Info., Patient Portal Info Letter Discharge Order Discharge Orders: Discharge (Routine); Ordered 07/17/25 Ordered By: Mustapha Vasquez Quality Discharge Quality Measures VTE prophylaxis and sepsis
--- NOTE | 2025-07-17 14:56 | PC.SS ---
SS met with pt who is requesting to return home with IV antibiotic, his can assists, and he follows up with PCP, Dr. Sherwin Allison every week. Transfer nurse, Azalea is aware. Per physician residents, pt will require IV Ceftriaxone 2grm 1 X day until 08-22-25.
--- NOTE | 2025-07-17 15:19 | PC.CM ---
Patient accepted by [facility] health and [facility]. They will deliver the ABX tonight and [facility] will open tomorrow. I spoke to Charley breaux and gave her the information.
--- NOTE | 2025-07-20 12:13 | ESCONSULT_ITS ---
RE: PROMISE MIKE : 1960 DATE OF CONSULTATION: 07/17/2025 CHIEF COMPLAINT: BPH with urinary obstruction and LUTS, status post placement of Hardwick catheter, which was removed day before yesterday and patient has been urinating without a catheter. COMORBID CONDITIONS: 1. Insulin-dependent diabetes mellitus. 2. PAD with prior amputation. 3. Splenectomy in 2022. 4. Hypothyroidism. 5. Hypertension. PSYCHIATRY HISTORY: Presented to the emergency room due to bilateral pneumonia and diabetic foot infection with osteomyelitis. HISTORY OF PRESENT ILLNESS: This is a 64-year-old gentleman. He denies any urinary problem prior to coming to the emergency room. The patient denies any prostatic surgery. His is at his bedside and she was helpful in explaining his urinary problem to me. This patient has bipolar, MDD, and PTSD. He came to the emergency room with worsening left foot pain, erythema, and swelling. According to the patient, his normally assists with wound care for plantar ulcer. The patient also has a history of mild scratchy throat with minimal cough in the emergency room. In the emergency room, he has fever of 103.5, tachycardia 127, hypoxic due to 80% on RA (improved with O2). Sepsis alert was initiated. The patient received 2.4 L of IV normal saline (30 mL/kg bolus) and IV piperacillin-tazobactam. REVIEW OF THE SYSTEM: The patient is restless in the bed because he has hip pain. He denies any urinary problem. He has no shortness of breath. No acute chest pain. Review of the system is limited. PHYSICAL EXAMINATION: GENERAL: Condition is satisfactory. Orientation x3. HEENT: Normocephalic and atraumatic. Eyes: No anemia or jaundice. NECK: Supple. Trachea is central. Thyroid is not enlarged. EXTREMITIES: Revealed no edema, cyanosis or clubbing. CHEST: Symmetrical. HEART: Regular rate and rhythm. ABDOMEN: No masses. Liver, spleen, and kidney not palpable. No CVA tenderness. VARIOUS LABORATORIES: His BUN is 33 and creatinine is 1.8. This is from 07/09/2025. ASSESSMENT: 1. Benign prostatic hyperplasia with obstruction. 2. Possible neurogenic bladder due to diabetes mellitus. RECOMMENDATION: 1. Tamsulosin 0.4 mg p.o. daily. 2. Follow up with me in urology office and continue to follow up with PCP. DT: 15:31:51 TT: 18:05:00 Ref: - TID: [id number]
== END 2025-07-17 16:00 | disposition home health service (06) | DRG 720 ==
LOC: SERX 07-10 01:00 → SERHOLD 07-10 01:59 → S2NX 07-10 05:25 → S3NX 07-10 20:31
PROVIDERS: Internal Medicine Infectious Disease; Student in an Organized Health Care Education/Training Program; Admitting Provider Internal Medicine; Emergency Provider Emergency Medicine; Visit Provider Internal Medicine
DX: A41.01 Sepsis due to Methicillin susceptible Staphylococcus aureus (principal); F17.200 Nicotine dependence, unspecified, uncomplicated; E03.9 Hypothyroidism, unspecified; E11.51 Type 2 diabetes mellitus with diabetic peripheral angiopathy without gangrene; E11.69 Type 2 diabetes mellitus with other specified complication; F43.10 Post-traumatic stress disorder, unspecified; F31.9 Bipolar disorder, unspecified; G40.909 Epilepsy, unspecified, not intractable, without status epilepticus; K21.9 Gastro-esophageal reflux disease without esophagitis; Z79.4 Long term (current) use of insulin; Z90.81 Acquired absence of spleen; J96.01 Acute respiratory failure with hypoxia; J18.9 Pneumonia, unspecified organism; E11.621 Type 2 diabetes mellitus with foot ulcer; L97.529 Non-pressure chronic ulcer of other part of left foot with unspecified severity; N17.9 Acute kidney failure, unspecified; Z71.6 Tobacco abuse counseling; Z66 Do not resuscitate; E78.5 Hyperlipidemia, unspecified; I11.0 Hypertensive heart disease with heart failure; I50.20 Unspecified systolic (congestive) heart failure; L02.612 Cutaneous abscess of left foot; L03.116 Cellulitis of left lower limb; N40.1 Benign prostatic hyperplasia with lower urinary tract symptoms; E83.39 Other disorders of phosphorus metabolism; M86.8X7 Other osteomyelitis, ankle and foot; R45.851 Suicidal ideations; Z78.1 Physical restraint status; Z79.02 Long term (current) use of antithrombotics/antiplatelets; Z79.84 Long term (current) use of oral hypoglycemic drugs; Z79.899 Other long term (current) drug therapy; Z79.890 Hormone replacement therapy; Z89.429 Acquired absence of other toe(s), unspecified side
CPT/HCPCS: 36415; 36600; 71045; 73630; 73718; 80048; 80053; 80202; 81001; 82803; 83036; 83605; 83615; 83690; 83735; 83880; 84100; 84145; 84484; 85025; 85610; 85652; 85730; 86140; 87040; 87077; 87186; 87400; 87811; 93005; 93225; 93306; 93926; 93971; 94640; 96361; 96365; 96372; 96375; A9270; C1751; C1894; J0696; J1200; J1630; J1642; J1644; J1815; J1885; J1938; J2250; J2270; J2405; J2470; J2543; J3372; J3375; J3475; J3486; J3490; J7030; J7050; J7120; J7999